=== PATIENT | female | born 1970 | race Caucasian/White ===

== ENCOUNTER → 2017-10-28 09:59 | Outpatient (CLI) | payer OTHER, SELFPAY ==
--- NOTE | 2017-10-28 10:05 | RAD_ITS ---
STUDY: X-RAY CHEST REASON FOR EXAM: Female, 47 years old. Chest pain TECHNIQUE: PA and lateral views of the chest. COMPARISON: None. FINDINGS: The lungs are clear and expanded. There is no demonstrated pleural abnormality. Normal size heart. Normal mediastinum and elfego. Normal visualized pulmonary arteries. Normal visualized aortic arch and descending thoracic aorta. Normal visualized thoracic spine. Normal visualized ribs, clavicles, and shoulders. There is no demonstrated abnormality of the visualized soft tissue structures of the upper abdomen. RAD/Chest PA and Lateral IMPRESSION: Normal x-ray examination of the chest. Electronically Signed: Rohit King DO at 10:29 EST Tel , Service support ,
[2017-10-28 12:25] LABS: Absolute Lymphocyte Count 2.23 X10^3/ul (0.83-4.51); Absolute Neutrophil Count 3.7 X10^3/uL (2.0-7.7); Basophil# 0.03 X10^3/uL; Basophil% 0.5 % (0-1); Eosinophil# 0.05 X10^3/uL; Eosinophils% 0.8 % (0-5); Hematocrit 35.9 % (37-47); Hemoglobin 11.7 g/dl (12.0-15.0); Lymphocyte # 2.23 X10^3/ul (4.0); Mean Corp Hgb Conc 32.6 g/gl (32-36); Mean Corpuscular Hgb 26.8 pg (27.0-32.0); Mean Corpuscular Volume 82.3 fL (81-99); Mean Platelet Vol. 11.3 fl (6.2-12.0); Monocyte# 0.54 X10^3/uL; Monocyte% 8.2 % (0-10); Neutrophil # 3.69 X10^3/uL (2.7-7.7); Neutrophil % 56.2 % (47-70); Platelet Count 246 K/mm3 (150-450); RBC Distribution Width CV 14.6 % (11.6-14.6); RBC Distribution Width SD 43.6 fl (35.1-43.9); Red Blood Count 4.36 M/mm3 (4.2-5.4); White Blood Count 6.6 K/mm3 (4.4-11.0)
[2017-10-28 12:30] LABS: Anion Gap 6 (5-15); BUN 12 mg/dL (7-18); BUN/Creat Ratio 13.2 RATIO (10-20); Calcium,Total 9.1 mg/dL (8.5-10.1); Chloride 106 mmol/L (98-107); Creatinine, Serum 0.91 mg/dL (0.55-1.02); EST Glomerular Filtration Rate 71 mL/min (>60); Est Glom Filt Rate - Afr Amer 86 mL/min (>60); Glucose 94 mg/dL (74-106); Potassium 3.7 mmol/L (3.5-5.1); Sodium Level 139 mmol/L (136-145)
[2017-10-28 12:32] LABS: POSITIVE COUNT NO; POSITIVE DIFFERENTIAL NO; POSITIVE MORPHOLOGY NO
[2017-10-28 12:54] LABS: D-Dimer Quantitative (DVT/PE) < 0.27 FEU/ug/m (0.27-0.49)
== END ==
PROVIDERS: Family Provider Family Medicine; PCP Family Medicine; Visit Provider Family Medicine
DX: R07.9 Chest pain, unspecified (principal)
CPT/HCPCS: 36415; 71046; 80048; 85025; 85379

== ENCOUNTER → 2017-12-04 06:05 | Outpatient (CLI) | payer OTHER, SELFPAY ==
[2017-12-04 08:02] LABS: Hematocrit 34.8 % (37-47); Hemoglobin 11.4 g/dl (12.0-15.0); Mean Corp Hgb Conc 32.8 g/gl (32-36); Mean Corpuscular Hgb 26.6 pg (27.0-32.0); Mean Corpuscular Volume 81.3 fL (81-99); Mean Platelet Vol. 10.7 fl (6.2-12.0); Platelet Count 243 K/mm3 (150-450); RBC Distribution Width CV 14.9 % (11.6-14.6); RBC Distribution Width SD 43.4 fl (35.1-43.9); Red Blood Count 4.28 M/mm3 (4.2-5.4); Scan Indicated on CBC? Y/N NO; White Blood Count 9.7 K/mm3 (4.4-11.0)
[2017-12-04 08:25] LABS: Ferritin 8 ng/mL (8-252); Iron 33 ug/dL (50-170); Thyroid Stim Hormone (TSH) 2.26 uIU/mL (0.358-3.74)
== END ==
PROVIDERS: Family Provider Family Medicine; PCP Family Medicine; Visit Provider Obstetrics & Gynecology
DX: N92.0 Excessive and frequent menstruation with regular cycle (principal)
CPT/HCPCS: 36415; 82728; 83540; 84443; 85027

== ENCOUNTER → 2017-12-10 07:38 | Outpatient (CLI) | payer OTHER, SELFPAY ==
--- NOTE | 2017-12-10 07:43 | US_ITS ---
STUDY: ULTRASOUND TRANSVAGINAL CLINICAL: Female, 47 years old. Bleeding. LMP: October 23, 2017. TECHNIQUE: Transvaginal COMPARISON: CT abdomen and pelvis March 20, 2015. FINDINGS: Normal anteverted uterine size measuring 9.1 x 5.1 x 3.7 cm in maximal craniocaudal dimension. There is hypervascularity and heterogeneity in the anterior upper body of the uterus, consistent with fibroids. One of the largest is 1.4 x 1.5 x 1.8 cm. Normal endometrial thickness measuring 3.1 mm. The endometrium is hyperechoic. There are no endometrial masses, and there is no fluid in the endometrial cavity. There are numerous nabothian cysts in the uterine cervix. One of the largest is 8-9 mm. Normal right ovary, measuring 1.8 x 2.0 x 1.9 cm. There are multiple follicles without a dominant cyst. Normal left ovary, measuring 1.5 x 1.2 x 1.5 cm. There are multiple follicles without a dominant cyst. There is no free fluid in the pelvis. Polycystic ovary disease: No. US/Transvaginal Non- IMPRESSION: 1. Fibroid uterus. 2. Normal endometrium. 3. Numerous nabothian cysts in the uterine cervix. 4. Unremarkable bilateral ovaries. Electronically Signed: Gen Gant MD at 19:51 EDT , Service support ,
== END ==
PROVIDERS: Family Provider Family Medicine; PCP Family Medicine; Visit Provider Obstetrics & Gynecology
DX: N92.0 Excessive and frequent menstruation with regular cycle (principal); N92.6 Irregular menstruation, unspecified; D25.9 Leiomyoma of uterus, unspecified; N88.8 Other specified noninflammatory disorders of cervix uteri
CPT/HCPCS: 76830; 93976

== ENCOUNTER 2018-02-04 06:59 | Day surgery (SDC) | payer OTHER, SELFPAY ==
[2018-01-30 08:32] LABS: Hematocrit 32.2 % (37-47); Hemoglobin 10.4 g/dl (12.0-15.0); Internal QC Validated? YES +Cl - CLEAR BKGD; Mean Corp Hgb Conc 32.3 g/gl (32-36); Mean Corpuscular Hgb 26.4 pg (27.0-32.0); Mean Corpuscular Volume 81.7 fL (81-99); Mean Platelet Vol. 10.4 fl (6.2-12.0); Platelet Count 199 K/mm3 (150-450); Pregnancy, Urine Negative Negative; RBC Distribution Width CV 15.9 % (11.6-14.6); RBC Distribution Width SD 48.2 fl (35.1-43.9); Red Blood Count 3.94 M/mm3 (4.2-5.4); White Blood Count 8.6 K/mm3 (4.4-11.0)
[2018-01-30 08:40] LABS: Scan Indicated on CBC? Y/N NO
[2018-02-04] VITALS (7 sets, daily range): BP systolic 118–158; BP diastolic 78–95; PULSE 69–102; RESP 16–18; TEMP 36.4; O2SAT 95–100; BMI 38.2
[2018-02-04] MEDS: Acetaminophen 500 MG Tablet 1000 MG PO ×2 (07:23)
[2018-02-04] MEDS: Ketorolac 60 MG/2 ML Vial IM (07:23)
[2018-02-04] MEDS: Ondansetron 8 MG Tablet PO (07:23)
[2018-02-04 07:51] LABS: Internal QC Validated? YES +Cl - CLEAR BKGD; Pregnancy, Urine Negative Negative
--- NOTE | 2018-02-04 08:25 | EMB_PTH ---
PATIENT: STEPHANIE ROSENTHAL LOC: [facility] – [place] U#:[id number] AGE/SX: 47/F ROOM: RE02/04/[address]: Dr. Keesha Foster MD : 1970 BED: DIS: 02/04/2018 SPEC #: [id number] RECD: 02/04/18 09:54 STATUS: EDGAR HAMMOND #: [id number] PAULINE: 02/04/18 08:[address]: Keesha Foster DEPT: SURGICAL PATHOLOGY RECD BY: Young Johnson ENTERED: 02/04/18 10:03 SP TYPE: ENDOM BX/C DANIEL DR: Dr. Jorge Luis Nunez MD Tissues: Endometrium, NOS Procedures: Surgery Specimen Level IV HEADER OPERATION: Hysteroscopy, D & C, Priscilla PRE-OP DIAGNOSIS: Menorrhagia with dysmenorrhea, iron deficiency anemia TISSUE SUBMITTED: Endometrial curettings MICROSCOPIC DIAGNOSIS Endometrial curettings: Secretory endometrium. See comment. SJ:victoria 02/05/18 COMMENT The endometrial glands show mild distortion and may represent disordered proliferative endometrium with superimposed secretory changes. Clinical correlation and appropriate follow up are necessary. MICROSCOPIC DESCRIPTION Slides are reviewed. GROSS DESCRIPTION Received in fixative is one container labeled with the patient's name and designated endometrial curettings. The specimen consists of multiple irregular fragments of hamilton-pink soft tissue mixed with blood clot that in aggregate measure 5 x 3 x 0.3 cm. The entire specimen is submitted in two cassettes. / IZABELA:victoria 02/04/18 TC:5 CPT: 02287
--- NOTE | 2018-02-04 08:58 | PCM.DC.D&C ---
Discharge Diet: No Restrictions Discharge Activity: Return to Normal Activity, May Shower, May Take a Tub Bath - in 2 weeks. Return to work on:: 02/08/18 May shower in (days): 0 May resume sexual activity in: 3 weeks Call your doctor if your incision/area has: Sudden Increased Bleeding, Foul Smelling Discharge Call your doctor if you observe: Fever of 101 or Higher, Using more than one pad per hour, Uncontrolled pain Allergies/Adverse Reactions: Allergies latex Allergy (Verified 01/28/18 14:20) Hives Sulfa (Sulfonamide Antibiotics) Allergy (Verified 01/28/18 14:20) Unknown Medications to take at Discharge Multivitamin/Iron/Folic Acid [One Daily Multivitamin-Iron Tb] 1 each PO DAILY 01/28/18 Ranitidine [Zantac] 150 mg PO DAILY PRN 01/28/18 Primary Care Physician: Jorge Luis Nunez MD [Primary Care Provider] - Please Follow Up With: Keesha Foster MD - [phone] When: 4-6 weeks or as needed
--- NOTE | 2018-02-04 09:00 | PCM.OPRPT ---
Report of Operation Date of Procedure: 02/04/18 Pre-Operative Diagnosis: Menorrhagia, chronic iron deficiency anemia from chronic blood loss Post-Operative Diagnosis: Same Surgery/Procedure Performed:: Hysteroscopy dilation and curettage with Priscilla endometrial ablation Description of Surgical Findings:: Normal-appearing cervix and vagina. Uterus sounded to 10 cm. Ragged lush endometrium. No discrete polyps or fibroids in the endometrial cavity. small business sales representative: Olvin gould ms3 Type of Anesthesia:: MAC/Supplemental/Local Anesthesiologist: Drake Sweet Special Medications: none Specimen's removed: endometrial curettings Drains: none Estimated Blood Loss (mL): 10cc Fluids Replaced: 900cc Description of Procedure: The patient was taken to the OR where she was prepped and draped in dorsal lithotomy position. The weighted speculum was placed in the vagina and the anterior lip of the cervix was grasped with a single-tooth tenaculum. A paracervical block was administered with 1% lidocaine with 1-100,000 epinephrine solution. The cervix was dilated serially with Hegar dilators. The 5mm hysteroscope was placed into the uterine cavity and the above findings were noted. Bilateral tubal ostia were identified. The uterus sounded to 10 cm and the cervical length was 4 cm. The endometrial cavity length was 6 cm. The hysteroscope was removed. A gentle sharp curettage was done of the uterine cavity. The specimen was handed off and sent to pathology. The Priscilla device was set to 6 cm. The instrument was then seated into the endometrial cavity and the indicator was in the green. The cervical seal balloon was inflated and the uterine integrity test was passed. The ablation procedure was initiated and completed without interruption. During the ablation procedure gentle traction was held on the tenaculum and the Priscilla device was held up against the uterine fundus. When the ablation procedure was completed the Priscilla was removed. The tenaculum was removed and the tenaculum site was noted to be hemostatic. All sponge and needle counts were correct. A vaginal sweep was performed by me. The patient was awakened and taken to the recovery room in stable condition. Hysteroscopic ins: 100 cc normal saline Hysteroscopic outs: 75 cc Findings: Endometrial cavity: Ragged endometrium and some blood, no fibroids or polyps noted Cervix: normal Vagina: normal Grafts/Implants Used: none - Complications none - Admit VTE Documentation VTE Mechan Device Prophylaxis: SCD's VTE Pharm Prophylaxis ordered?: No Reason prophylaxis not ordered:: Procedure Not Indicated
== END 2018-02-04 09:59 | disposition home or self-care (01) ==
LOC: SDC 06:59 → AC 07:00
PROVIDERS: Anesthesiology; Family Provider Family Medicine; PCP Family Medicine; Visit Provider Obstetrics & Gynecology
PROC: 0U5B8ZZ Destruction of Endometrium, Via Natural or Artificial Opening Endoscopic (ICD-10-PCS; CPT 58558; principal; 2018-02-04 08:10)
DX: N85.8 Other specified noninflammatory disorders of uterus (principal); N92.0 Excessive and frequent menstruation with regular cycle; N94.6 Dysmenorrhea, unspecified; D50.0 Iron deficiency anemia secondary to blood loss (chronic); K21.9 Gastro-esophageal reflux disease without esophagitis; E66.9 Obesity, unspecified; Z68.38 Body mass index [BMI] 38.0-38.9, adult; Z98.51 Tubal ligation status
CPT/HCPCS: 58563; 81025; 85027; 88305; J7120; J2405

== ENCOUNTER → 2018-03-12 09:53 | Outpatient (CLI) | payer OTHER, SELFPAY ==
[2018-03-12 12:04] LABS: Hematocrit 35.4 % (37-47); Hemoglobin 11.2 g/dl (12.0-15.0); Mean Corp Hgb Conc 31.6 g/gl (32-36); Mean Corpuscular Hgb 25.9 pg (27.0-32.0); Mean Corpuscular Volume 81.8 fL (81-99); Mean Platelet Vol. 10.7 fl (6.2-12.0); Platelet Count 244 K/mm3 (150-450); RBC Distribution Width CV 14.7 % (11.6-14.6); RBC Distribution Width SD 44.4 fl (35.1-43.9); Red Blood Count 4.33 M/mm3 (4.2-5.4); White Blood Count 5.4 K/mm3 (4.4-11.0)
[2018-03-12 12:09] LABS: Scan Indicated on CBC? Y/N NO
[2018-03-12 12:44] LABS: Anion Gap 5 (5-15); BUN 13 mg/dL (7-18); BUN/Creat Ratio 13.6 RATIO (10-20); Chloride 108 mmol/L (98-107); Creatinine, Serum 0.95 mg/dL (0.55-1.02); EST Glomerular Filtration Rate 67 mL/min (>60); Est Glom Filt Rate - Afr Amer 81 mL/min (>60); Glucose 87 mg/dL (74-106); Sodium Level 139 mmol/L (136-145); Thyroid Stim Hormone (TSH) 1.34 uIU/mL (0.358-3.74)
== END ==
PROVIDERS: Family Provider Family Medicine; PCP Family Medicine; Visit Provider Obstetrics & Gynecology
DX: N93.9 Abnormal uterine and vaginal bleeding, unspecified (principal); R53.83 Other fatigue
CPT/HCPCS: 36415; 80048; 84443; 85027

== ENCOUNTER → 2018-03-17 07:42 | Outpatient (CLI) | payer OTHER, SELFPAY ==
--- NOTE | 2018-03-17 07:43 | US_ITS ---
STUDY: ULTRASOUND OF THE FEMALE PELVIS - COMPLETE REASON FOR EXAM: Female, 47 years old. Abnormal uterine bleeding and pelvic pain. Patient recently had an endometrial ablation (02/04/2018) LMP: October 23, 2017 TECHNIQUE: Limited study because the patient could not tolerate the transvaginal probe. Urinary bladder wasn't completely full TECHNICAL QUALITY: Adequate. COMPARISON: None. FINDINGS: The uterus measures 10.1 x 4.1 cm with an endometrial stripe thickness of 4.3 mm. There are 2 uterine fibroids in the anterior myometrial wall measuring 1.7 and 1.6 cm. A third is in the posterior myometrial wall measuring 9 mm. Both ovaries are seen and both demonstrate normal Doppler flow through them. The right is 3.5 x 2.6 x 1.7 cm and the left is 3.2 x 3.0 x 1.4 cm . US/Pelvic (Non ) IMPRESSION: Small uterine fibroids. The ovaries are normal. The endometrial stripe is normal. Electronically Signed: Sancho Wick, at 3:22 EDT Tel , Service support ,
--- NOTE | 2018-03-17 08:23 | US_ITS ---
STUDY: ULTRASOUND OF THE FEMALE PELVIS - COMPLETE REASON FOR EXAM: Female, 47 years old. Abnormal uterine bleeding and pelvic pain. Patient recently had an endometrial ablation (02/04/2018) LMP: October 23, 2017 TECHNIQUE: Limited study because the patient could not tolerate the transvaginal probe. Urinary bladder wasn't completely full TECHNICAL QUALITY: Adequate. COMPARISON: None. FINDINGS: The uterus measures 10.1 x 4.1 cm with an endometrial stripe thickness of 4.3 mm. There are 2 uterine fibroids in the anterior myometrial wall measuring 1.7 and 1.6 cm. A third is in the posterior myometrial wall measuring 9 mm. Both ovaries are seen and both demonstrate normal Doppler flow through them. The right is 3.5 x 2.6 x 1.7 cm and the left is 3.2 x 3.0 x 1.4 cm . US/Transvaginal Non- IMPRESSION: Small uterine fibroids. The ovaries are normal. The endometrial stripe is normal. Electronically Signed: Sancho Wick, at 3:22 EDT Tel , Service support ,
== END ==
PROVIDERS: Family Provider Family Medicine; PCP Family Medicine; Visit Provider Obstetrics & Gynecology
DX: N93.9 Abnormal uterine and vaginal bleeding, unspecified (principal); R10.2 Pelvic and perineal pain
CPT/HCPCS: 76830; 76856; 93976

== ENCOUNTER → 2018-04-09 07:41 | Outpatient (CLI) | payer OTHER, SELFPAY ==
--- NOTE | 2018-04-09 07:48 | BI_ITS ---
MAMMOGRAPHY - BILATERAL SCREENING REASON FOR EXAM: Female, 47 years old. Routine annual screening examination. PERTINENT HISTORY: Non-contributory. Prior bilateral breast reduction surgery. TECHNIQUE: Digital bilateral breast kirsten (3D mammographic acquisition) in the CC and MLO projections. 2-D mediolateral oblique (MLO) and craniocaudad (CC) views of both breasts were obtained. CAD: Full Field Digital Mammography with Computer Added Detection was performed. COMPARISON: Comparison is made with prior study dated January 23, 2017 and December 10, 2015. FINDINGS: Breast Composition: There are scattered areas of fibroglandular density. There are no dominant masses or suspicious calcifications. A tissue clip marker is seen within a 5 mm nodule in the upper lateral aspect of the right breast. This is unchanged. Stable benign-appearing bilateral axillary lymph nodes. No other significant abnormalities are identified. There has been no significant change since the prior study. BI/SCREENING MAMM (CAD), BILAT IMPRESSION: Stable bilateral screening mammogram. Yearly follow-up mammogram recommended. (A) ASSESSMENT CATEGORY: BIRADS Category 2: Benign. A letter regarding these results will be sent to the patient by the facility within 30 days. Approximately 10% of breast cancers are not detected by mammography. A normal mammogram should not delay biopsy of a clinically suspicious abnormality. [id number] Electronically Signed: Derrick Sharma MD at 10:51 EDT Tel [phone], Service support ,
== END ==
PROVIDERS: Family Provider Family Medicine; PCP Family Medicine; Visit Provider Family Medicine
DX: Z12.31 Encounter for screening mammogram for malignant neoplasm of breast (principal)
CPT/HCPCS: 77063; 77067

== ENCOUNTER 2018-05-20 12:36 | Observation (INO) | payer OTHER, SELFPAY ==
[2018-05-17 07:37] LABS: Hematocrit 34.8 % (37-47); Hemoglobin 11.7 g/dl (12.0-15.0); Mean Corp Hgb Conc 33.6 g/gl (32-36); Mean Corpuscular Hgb 27.1 pg (27.0-32.0); Mean Corpuscular Volume 80.7 fL (81-99); Mean Platelet Vol. 10.1 fl (6.2-12.0); Platelet Count 206 K/mm3 (150-450); RBC Distribution Width CV 15.9 % (11.6-14.6); Red Blood Count 4.31 M/mm3 (4.2-5.4); White Blood Count 6.6 K/mm3 (4.4-11.0)
[2018-05-17 07:42] LABS: Scan Indicated on CBC? Y/N NO
[2018-05-20] VITALS (16 sets, daily range): BP systolic 79–166; BP diastolic 39–91; PULSE 48–81; RESP 14–18; TEMP 36.2–37.1; O2SAT 95–100; BMI 38.8
--- NOTE | 2018-05-20 | HYST_PTH ---
PATIENT: STEPHANIE ROSENTHAL LOC: [facility] U#:[id number] AGE/SX: 48/F ROOM: MS314 RE05/20/[address]: Dr. Keesha Foster MD : 1970 BED: 1 DIS: 05/21/2018 SPEC #: [id number] RECD: 05/20/18 13:46 STATUS: EDGAR RERosa Isela #: [id number] PAULINE: 05/20/18 00:[address]: Keesha Foster DEPT: SURGICAL PATHOLOGY RECD BY: Rocco Perez ENTERED: 05/20/18 13:46 SP TYPE: HYSTERECT OTHR DR: Dr. Jorge Luis Nunez MD Tissues: Uterus, NOS Procedures: Surgery Specimen Level V HEADER OPERATION: Hysterectomy, laparoscopic, total, bilateral salpingectomy PRE-OP DIAGNOSIS: Dysmenorrhea, adenomyosis TISSUE SUBMITTED: Uterus, bilateral fallopian tubes MICROSCOPIC DIAGNOSIS Uterus, hysterectomy: Cervix ? nabothian cysts and mild chronic inflammation. Endometrium ? weakly proliferative endometrium and changes consistent with previous surgical procedure. Myometrium ? leiomyomas and focal superficial adenomyosis. Right and left fallopian tubes ? changes consistent with hydrosalpinx. AM:victoria 05/21/18 MICROSCOPIC DESCRIPTION Slides are reviewed. GROSS DESCRIPTION Received in fixative is one container labeled with the patient's name and designated uterus. The specimen consists of a uterus with attached cervix and detached right and left fallopian tubes. No ovaries are present. The uterus with cervix measures 9.5 x 6.5 x 4 cm and weighs 92 gm. The ectocervix is unremarkable. The cervical os is fish[place] in contour. The endocervical canal measures 3.6 cm in length and is grossly unremarkable. The triangular endometrial cavity measures 3.5 x 2.6 cm. The velvety-hamilton endometrium measures up to 0.2 cm in greatest thickness. The myometrium measures 2 cm in average thickness and is distorted by multiple spherical rubbery nodules resembling leiomyomas. The nodules are subserosal, intramural and submucosal in location and range in size from 0.2 to 1.8 cm in greatest dimension. The right and left fallopian tubes are similar in appearance measuring 3 cm in average length and 0.5 cm in average diameter. Project Estimator sections are submitted in ten cassettes as follows: 1 - anterior cervix, 2 - posterior cervix, 3 & 4 - anterior uterine wall, 5 & 6 - posterior uterine wall, 7 & 8 ? myometrial mass, 9 ? one fallopian tube, 10 ? the other fallopian tube. / AM:victoria 05/20/18 TC:1 CPT: 40427
[2018-05-20 06:01] LABS: Internal QC Validated? YES +Cl - CLEAR BKGD; Pregnancy, Urine Negative Negative
[2018-05-20] MEDS: Acetaminophen 500 MG Tablet 1000 MG PO ×3 (06:02→23:21)
[2018-05-20] MEDS: Celecoxib 200 MG Capsule 400 MG PO (06:02)
[2018-05-20] MEDS: Phenazopyridine 95 MG Tablet 190 MG PO (06:02)
[2018-05-20] MEDS: Lubricating Jelly 60 GM Tube 30 GM TOPICAL (07:57)
[2018-05-20] MEDS: Bupivacaine Mpf 0.5% 30 ML VIAL (08:00)
--- NOTE | 2018-05-20 09:59 | PCM.OPRPT ---
Report of Operation Date of Procedure: 05/20/18 Pre-Operative Diagnosis: intramural uterine fibroid, chronic pelvic pain s/p endometrial ablation, adenomyosis Post-Operative Diagnosis: same Surgery/Procedure Performed:: Laparoscopic hysterectomy with bilateral salpingectomy and cystoscopy Description of Surgical Findings:: Uterus w/ small fibroid, normal bilateral ovaries, tubes normal other than evidence of previous ligation, some omental adhesions right lateral abdominal wall plant guard: Julia Bo Type of Anesthesia:: General Anesthesiologist: Daniela Wan Special Medications: none Specimen's removed: uterus, bilateral tubes Drains: bray Estimated Blood Loss (mL): 400cc Fluids Replaced: 1400 cc LR Grafts/Implants Used: none - Complications none - Admit VTE Documentation VTE Present on Admission: No VTE Mechan Device Prophylaxis: SCD's VTE Pharm Prophylaxis ordered?: Yes
--- NOTE | 2018-05-20 10:03 | OP.PCM_ITS ---
Report of Operation Date of Procedure: 05/20/18 Pre-Operative Diagnosis: intramural uterine fibroid, chronic pelvic pain s/p endometrial ablation, adenomyosis Post-Operative Diagnosis: same Surgery/Procedure Performed:: Laparoscopic hysterectomy with bilateral salpingectomy and cystoscopy Description of Surgical Findings:: Uterus w/ small fibroid, normal bilateral ovaries, tubes normal other than evidence of previous ligation, some omental adhesions right lateral abdominal wall manufacturing operations manager: Julia Bo Type of Anesthesia:: General Anesthesiologist: Daniela Wan Special Medications: none Specimen's removed: uterus, bilateral tubes Drains: bray Estimated Blood Loss (mL): 400cc Fluids Replaced: 1400 cc LR Grafts/Implants Used: none - Complications none - Admit VTE Documentation VTE Present on Admission: No VTE Mechan Device Prophylaxis: SCD's VTE Pharm Prophylaxis ordered?: Yes
[2018-05-20] MEDS: Lactated Ringers 1,000 ML 100 ML IV ×2 (12:00→20:52)
[2018-05-20] MEDS: Ketorolac 30 MG/ML Syringe IV ×2 (14:12→20:49)
[2018-05-20] MEDS: oxyCODONE 5 MG Tablet PO ×2 (15:33→23:21)
[2018-05-20] MEDS: 0.9% NaCl Peripheral Flush Adult/Peds IV ×2 (19:38→20:49)
[2018-05-20] MEDS: HYDROmorphone 1 MG/ML Syringe IV (19:39)
[2018-05-20] MEDS: Senna/Docusate Sodium 1 Tablet PO (23:21)
[2018-05-21] MEDS: HYDROmorphone 1 MG/ML Syringe 2 MG IV (00:30)
[2018-05-21] MEDS: 0.9% NaCl Peripheral Flush Adult/Peds IV ×3 (00:30→14:02)
[2018-05-21 00:34] VITALS: BP 129/65; PULSE 75; RESP 16; TEMP 36.8; O2SAT 100
[2018-05-21] MEDS: Ketorolac 30 MG/ML Syringe IV ×3 (02:23→14:02)
[2018-05-21] MEDS: DiphenhydrAMINE 25 MG Capsule 50 MG PO (02:24)
[2018-05-21 02:27] VITALS: BP 116/51; PULSE 60; RESP 16; TEMP 36.6; O2SAT 100
[2018-05-21] MEDS: oxyCODONE 5 MG Tablet PO ×3 (06:41→17:38)
[2018-05-21 06:48] LABS: Hemoglobin 9.5 g/dl (12.0-15.0); Mean Corp Hgb Conc 31.7 g/gl (32-36); Mean Corpuscular Hgb 26.3 pg (27.0-32.0); Mean Corpuscular Volume 83.1 fL (81-99); Platelet Count 198 K/mm3 (150-450); RBC Distribution Width CV 16.3 % (11.6-14.6); RBC Distribution Width SD 48.4 fl (35.1-43.9); Red Blood Count 3.61 M/mm3 (4.2-5.4); White Blood Count 11.1 K/mm3 (4.4-11.0)
[2018-05-21 06:55] LABS: Scan Indicated on CBC? Y/N NO
[2018-05-21 07:53] VITALS: BP 107/54; PULSE 98; RESP 18; TEMP 36.7; O2SAT 96
[2018-05-21] MEDS: Senna/Docusate Sodium 1 Tablet PO (08:06)
--- NOTE | 2018-05-21 08:25 | PCM.DC.AHY ---
Discharge Diet: No Restrictions Discharge Activity: Return to Normal Activity, May Not Drive - while taking narcotic pain medications., May Shower May shower in (days): 0 May resume sexual activity in: 8 weeks Call your doctor if your incision/area has: Continuous Slow Oozing, Sudden Increased Bleeding, Increased Pain/ Swelling, Increased Redness, Foul Smelling Discharge Call your doctor if you observe: Fever of 101 or Higher, Inability to urinate, Inability to have a bowel movement, Using more than one pad per hour Cleanse incision/area with: Soap & Water Allergies/Adverse Reactions: Allergies latex Allergy (Verified 05/13/18 09:21) Hives Sulfa (Sulfonamide Antibiotics) Allergy (Verified 05/13/18 09:21) Unknown Medications to take at Discharge Ranitidine [Zantac] 150 mg PO DAILY PRN 01/28/18 Primary Care Physician: Jorge Luis Nunez MD [Primary Care Provider] - Test Results: Test results from this visit will be discussed in further detail at your follow-up appointment, if applicable. Please Follow Up With: Keesha Foster MD - [phone] When: 1-2 and 6 weeks or as needed
--- NOTE | 2018-05-21 08:26 | PCM.PN.OB ---
Subjective: pain well controlled after second dose of IV dilauded. Some pruritis. No nausea this am, didn't eat yesterday. Minimal vaginal bleeding. Fox out this am. - Physical Exam General: Alert, Cooperative, No apparent distress Abdomen: Soft, Non-Distended, Tender - appropriately Extremities: No edema Skin: Incision - clean, dry and intact Vital Signs Temp Pulse Resp BP Pulse Ox 98.1 F 98 18 107/54 L 96 05/21/18 07:53 05/21/18 07:53 05/21/18 07:53 05/21/18 07:53 05/21/18 07:53 Oxygen Flow Rate (L/min) 2 Oxygen Delivery Method Room Air Weight: 105.9 kg Body Mass Index (BMI) 38.8 Intake and Output for Last 24 Hours 05/19/18 05/20/18 05/21/18 23:59 23:59 23:59 Intake Total 5241 / 5241 1109 / 1109 Output Total 2275 / 2275 600 / 600 Balance 2966 / 2966 509 / 509 Laboratory Tests Past 24 Hrs 05/21/18 06:18 WBC 11.1 H RBC 3.61 L Hgb 9.5 L Hct 30.0 L MCV 83.1 MCH 26.3 L MCHC 31.7 L RDW 16.3 H RDW Differential 48.4 H Plt Count 198 MPV 11.0 Medical Necessity - Tobacco Use Smoking Status: Never smoker Assessment/Plan POD#1 mild anemia- likely secondary to blood loss and somewhat dilutional. Will recheck later this am to ensure it is stable ambulate likely home later today
[2018-05-21] MEDS: Enoxaparin 40 MG/0.4 ML Syringe SC (10:06)
[2018-05-21] MEDS: DiphenhydrAMINE 25 MG Capsule PO ×3 (10:06→18:16)
[2018-05-21 11:04] VITALS: O2SAT 96
[2018-05-21 11:33] LABS: Hematocrit 30.4 % (37-47); Hemoglobin 9.6 g/dl (12.0-15.0); Mean Corp Hgb Conc 31.6 g/gl (32-36); Mean Corpuscular Hgb 26.2 pg (27.0-32.0); Mean Corpuscular Volume 83.1 fL (81-99); Mean Platelet Vol. 10.2 fl (6.2-12.0); Platelet Count 204 K/mm3 (150-450); RBC Distribution Width CV 16.6 % (11.6-14.6); RBC Distribution Width SD 51.3 fl (35.1-43.9); Red Blood Count 3.66 M/mm3 (4.2-5.4); White Blood Count 13.7 K/mm3 (4.4-11.0)
[2018-05-21 11:40] LABS: Scan Indicated on CBC? Y/N NO
[2018-05-21 13:55] VITALS: BP 103/58; PULSE 84; RESP 18; TEMP 36.6; O2SAT 98
== END 2018-05-21 18:18 | disposition home or self-care (01) ==
LOC: SDC 14:14
PROVIDERS: Admitting Provider Obstetrics & Gynecology; Family Provider Family Medicine; PCP Family Medicine; Visit Provider Obstetrics & Gynecology
PROC: 0UT94ZZ Resection of Uterus, Percutaneous Endoscopic Approach (ICD-10-PCS; CPT 58571; principal; 2018-05-20 07:10)
DX: D25.1 Intramural leiomyoma of uterus (principal); N80.0 Endometriosis of uterus; N88.8 Other specified noninflammatory disorders of cervix uteri
CPT/HCPCS: 00940; 58571; 36415; 81025; 85027; 86850; 86900; 88307; 96361; 96372; 96374; 96375; 96376; 99218; J7120; A4216; G0378; G0379; J2405

== ENCOUNTER → 2018-12-24 11:44 | Outpatient (CLI) | payer OTHER, SELFPAY ==
[2018-09-24 06:29] VITALS: BMI 39.0
[2018-12-24 16:00] LABS: Anion Gap 7 (5-15); BUN 17 mg/dL (7-18); BUN/Creat Ratio 18.7 RATIO (10-20); Calcium,Total 8.6 mg/dL (8.5-10.1); Chloride 108 mmol/L (98-107); Creatinine, Serum 0.91 mg/dL (0.55-1.02); EST Glomerular Filtration Rate 70 mL/min (>60); Est Glom Filt Rate - Afr Amer 85 mL/min (>60); Glucose 90 mg/dL (74-106); Magnesium 2.1 mg/dL (1.6-2.6); Potassium 4.1 mmol/L (3.5-5.1); Sodium Level 142 mmol/L (136-145)
== END ==
PROVIDERS: Family Provider Family Medicine; PCP Family Medicine; Referring Provider Family Medicine; Visit Provider Family Medicine
DX: M79.606 Pain in leg, unspecified (principal)
CPT/HCPCS: 36415; 80048; 83735

== ENCOUNTER → 2019-05-19 07:30 | Outpatient (CLI) | payer OTHER, SELFPAY ==
[2019-02-12 08:39] VITALS: BMI 41.2
--- NOTE | 2019-05-19 07:35 | BI_ITS ---
MAMMOGRAPHY - BILATERAL SCREENING REASON FOR EXAM: Female, 49 years old. Routine annual screening examination. PERTINENT HISTORY: Non-contributory. History of bilateral breast reduction surgery. TECHNIQUE: Digital bilateral breast sangeeta (3D mammographic acquisition) in the CC and MLO projections. 2-D mediolateral oblique (MLO) and craniocaudad (CC) views of both breasts were obtained. CAD: Full Field Digital Mammography with Computer Added Detection was performed. COMPARISON: Comparison is made with prior study dated April 09, 2018 and January 23, 2017. FINDINGS: Breast Composition: There are scattered areas of fibroglandular density. There are no dominant masses or suspicious calcifications. Interstitial clip marker is seen in the upper lateral aspect of the right breast. This is unchanged. This is within a 5 mm nodular density. Stable small bilateral benign appearing axillary lymph nodes. No other significant abnormalities are identified. There has been no significant change since the prior study. BI/SCREEN MAMM (CAD) W/SANGEETA BILAT IMPRESSION: Stable bilateral screening mammogram. Yearly follow-up mammogram recommended. (A) ASSESSMENT CATEGORY: BIRADS Category 2: Benign. A letter regarding these results will be sent to the patient by the facility within 30 days. Approximately 10% of breast cancers are not detected by mammography. A normal mammogram should not delay biopsy of a clinically suspicious abnormality. [id number] Electronically Signed: Derrick Sharma, at 8:16 EDT , Service support ,
== END ==
PROVIDERS: Family Provider Family Medicine; PCP Family Medicine; Referring Provider Obstetrics & Gynecology; Visit Provider Obstetrics & Gynecology
DX: Z12.31 Encounter for screening mammogram for malignant neoplasm of breast (principal)
CPT/HCPCS: 77063; 77067

== ENCOUNTER → 2019-08-17 14:22 | Outpatient (CLI) | payer OTHER, SELFPAY ==
[2019-02-12 08:39] VITALS: BMI 41.2
--- NOTE | 2019-08-17 14:26 | RAD_ITS ---
STUDY: X-RAY - LUMBAR SPINE REASON FOR EXAM: Female, 49 years old. TECHNIQUE: view(s) of the lumbar spine were obtained. COMPARISON: None FINDINGS: Normal lumbar lordosis. There is no substantial scoliosis. There is a normal alignment of the vertebrae. Normal vertebral bodies and endplates. Normal disc space heights. The soft tissue structures are unremarkable. RAD/L/S Spine Min 4 Views IMPRESSION: Normal x-ray examination of the lumbar spine. Electronically Signed: Nuha Lebron, at 16:25 EST Tel , Service support ,
== END ==
PROVIDERS: Family Provider Family Medicine; PCP Family Medicine; Referring Provider Family Medicine; Visit Provider Family Medicine
DX: M54.5 Low back pain (principal)
CPT/HCPCS: 72110

== ENCOUNTER → 2019-12-15 | Outpatient (CLI) | payer OTHER, SELFPAY ==
[2019-09-25 10:43] VITALS: BMI 41.2
== END | disposition home or self-care (01) ==
PROVIDERS: PCP Family Medicine; Referring Provider Family Medicine; Visit Provider Family Medicine
DX: J06.9 Acute upper respiratory infection, unspecified (principal)
CPT/HCPCS: 87633

== ENCOUNTER → 2020-04-20 10:31 | Outpatient (CLI) | payer OTHER, SELFPAY ==
[2019-09-25 10:43] VITALS: BMI 41.2
[2020-04-20 12:27] LABS: Vitamin D,25 Hydroxy 30.3 ng/mL
[2020-04-20 12:34] LABS: Anion Gap 5 (5-15); BUN 14 mg/dL (7-18); BUN/Creat Ratio 15.7 RATIO (10-20); Chloride 107 mmol/L (98-107); Cholesterol 179 mg/dL (200); Creatinine, Serum 0.89 mg/dL (0.55-1.02); EST Glomerular Filtration Rate 72 mL/min (>60); Est Glom Filt Rate - Afr Amer 87 mL/min (>60); Glucose 104 mg/dL (74-106); High Density Lipoprotein 47 mg/dL; Potassium 3.9 mmol/L (3.5-5.1); Sodium Level 138 mmol/L (136-145); Thyroid Stim Hormone (TSH) 1.24 uIU/mL (0.358-3.74); Triglycerides 97 mg/dL; Very Low Density Lipoprotein 19 mg/dL (5-40)
== END ==
PROVIDERS: PCP Family Medicine; Referring Provider Family Medicine; Visit Provider Family Medicine
DX: Z00.00 Encounter for general adult medical examination without abnormal findings (principal)
CPT/HCPCS: 36415; 80048; 80061; 82306; 84443

== ENCOUNTER → 2020-05-21 07:29 | Outpatient (CLI) | payer OTHER, SELFPAY ==
[2019-09-25 10:43] VITALS: BMI 41.2
--- NOTE | 2020-05-21 07:32 | BI_ITS ---
MAMMOGRAPHY - BILATERAL SCREENING REASON FOR EXAM: Female, 50 years old. Routine annual screening examination. PERTINENT HISTORY: Non-contributory. History of prior bilateral breast reduction surgery. TECHNIQUE: Digital bilateral breast sangeeta (3D mammographic acquisition) in the CC and MLO projections. 2-D mediolateral oblique (MLO) and craniocaudad (CC) views of both breasts were obtained. CAD: Full Field Digital Mammography with Computer Added Detection was performed. COMPARISON: Comparison is made with prior study dated 05/19/2019 and 04/09/2018. FINDINGS: Breast Composition: There are scattered areas of fibroglandular density. There are no dominant masses or suspicious calcifications. Stable small benign appearing bilateral axillary. A tissue clip marker is once again seen within a 5 mm nodular density in the upper lateral portion of the right breast. A tissue clip marker is also seen in the retroareolar region of the right breast. No other significant abnormalities are identified. There has been no significant change since the prior study. BI/SCREEN MAMM (CAD) W/SANGEETA BILAT IMPRESSION: Stable bilateral screening mammogram. Yearly follow-up mammogram recommended. (A) ASSESSMENT CATEGORY: BIRADS Category 2: Benign. A letter regarding these results will be sent to the patient by the facility within 30 days. Approximately 10% of breast cancers are not detected by mammography. A normal mammogram should not delay biopsy of a clinically suspicious abnormality. [id number] Electronically Signed: Derrick Sharma, at 8:33 EDT , Service support ,
== END ==
PROVIDERS: PCP Family Medicine; Referring Provider Family Medicine; Visit Provider Family Medicine
DX: Z12.31 Encounter for screening mammogram for malignant neoplasm of breast (principal)
CPT/HCPCS: 77063; 77067

== ENCOUNTER → 2021-07-19 15:25 | Outpatient (CLI) | payer OTHER, SELFPAY ==
--- NOTE | 2021-07-19 15:27 | BI_ITS ---
MAMMOGRAPHY - BILATERAL SCREENING REASON FOR EXAM: Female, 51 years old. Routine annual screening examination. PERTINENT HISTORY: Non-contributory. History of prior bilateral breast reduction surgery and right ultrasound-guided breast biopsy. TECHNIQUE: Digital bilateral breast sangeeta (3D mammographic acquisition) in the CC and MLO projections. 2-D mediolateral oblique (MLO) and craniocaudad (CC) views of both breasts were obtained. CAD: Full Field Digital Mammography with Computer Added Detection was performed. COMPARISON: Comparison is made with prior study 05/21/2020 and 05/19/2019. FINDINGS: Breast Composition: There are scattered areas of fibroglandular density. There are no dominant masses or suspicious calcifications. A tissue clip marker is once again seen within a 5 mm nodule in the upper lateral portion of the right breast. A tissue clip marker is also seen in the retroareolar region of the right breast stable small benign-appearing bilateral axillary lymph nodes. No other significant abnormalities are identified. There has been no significant change since the prior study. BI/SCRN MAMM (CAD)W/SANGEETA BILAT IMPRESSION: Stable bilateral screening mammogram. Yearly follow-up mammogram recommended. (A) ASSESSMENT CATEGORY: BIRADS Category 2: Benign. A letter regarding these results will be sent to the patient by the facility within 30 days. Approximately 10% of breast cancers are not detected by mammography. A normal mammogram should not delay biopsy of a clinically suspicious abnormality. [id number] Electronically Signed: Derrick Sharma MD at 8:10 EDT , Service support ,
== END ==
PROVIDERS: PCP Family Medicine; Referring Provider Obstetrics & Gynecology; Visit Provider Obstetrics & Gynecology
DX: Z12.31 Encounter for screening mammogram for malignant neoplasm of breast (principal)
CPT/HCPCS: 77063; 77067

== ENCOUNTER 2021-08-31 20:00 | Emergency (ER) | payer OTHER, SELFPAY ==
[2021-08-31 20:00] VITALS: BP 119/90; PULSE 125; RESP 20; TEMP 37.7; O2SAT 100; BMI 31.4
--- NOTE | 2021-08-31 20:29 | CT_ITS ---
STUDY: CTA CHEST REASON FOR EXAM: Female, 51 years old. Dyspnea RADIATION DOSAGE (If Supplied By Facility): CTDIvol = ( 16.10 ) mGy, DLP = ( 523.10 ) mGycm TECHNIQUE: The examination was performed with the intravenous administration of IV 100mL Isovue-370. Post-processing of the angiographic images was performed, with multiplanar reformation and 3D reconstruction. Individualized dose optimization techniques were used for this CT. COMPARISON: None. FINDINGS: Suboptimal density of contrast in the pulmonary arteries, 245 [place] units, with mild motion in the lung bases decreases quality of the exam which is still diagnostic. Thoracic aortic arch is normal. Heart is normal size. No pericardial effusion. Lungs are clear without nodule or mass. No airspace opacity or abnormal interstitial pattern. No pleural effusion or pneumothorax. Central airways normal. Visualized portions upper abdomen included in [id number] are normal. Extrathoracic soft tissues of the chest and base of the neck are within normal limits. No axillary lymphadenopathy. No fracture or focal osseous lesion. Age expected mild degenerative endplate changes noted. CT/CTA Chest W/WO Contrast IMPRESSION: No pulmonary embolism or acute cardiopulmonary disease. Electronically Signed: Adam Foley DO at 21:43 EST Tel , Service support ,
[2021-08-31] MEDS: Acetaminophen 500 MG Tablet 1000 MG PO (20:47)
[2021-08-31] MEDS: 0.9% Normal Saline 1,000 ML 1000 ML IV (20:48)
[2021-08-31 20:55] LABS: Absolute Lymphocyte Count 1.06 X10^3/uL (0.83-4.51); Absolute Neutrophil Count 8.2 X10^3/uL (2.0-7.7); Basophil# 0.04 X10^3/uL; Basophil% 0.4 % (0-1); Eosinophil# 0.28 X10^3/uL; Eosinophils% 2.7 % (0-5); Hematocrit 22.2 % (37-47); Hemoglobin 7.1 g/dL (12.0-15.0); Lymphocyte # 1.06 X10^3/ul (0.83-4.51); Lymphocyte % 10.2 % (19-41); Mean Corpuscular Hgb 28.2 pg (27.0-32.0); Mean Corpuscular Volume 88.1 fL (81-99); Mean Platelet Vol. 9.3 fl (6.2-12.0); Monocyte% 7.7 % (0-10); NRBC Flagged by Analyzer 0 % (0-5); Neutrophil # 8.15 X10^3/uL (2.7-7.7); Neutrophil % 78.3 % (47-70); Platelet Count 250 K/mm3 (150-450); RBC Distribution Width CV 13.5 % (11.6-14.6); RBC Distribution Width SD 43.8 fl (35.1-43.9); Red Blood Count 2.52 M/mm3 (4.2-5.4); White Blood Count 10.4 K/mm3 (4.4-11.0)
[2021-08-31 21:04] VITALS: BP 97/60; PULSE 120; RESP 20; TEMP 39.2; O2SAT 96
[2021-08-31 21:37] LABS: ALB/GLOB Ratio 0.5 RATIO (0.9-2.4); AST(SGOT) 15 U/L (15-37); Alanine Aminotransfer ALT/SGPT 32 U/L (13-56); Albumin, Serum 1.9 g/dL (3.2-5.0); Alkaline Phosphatase 91 U/L (45-117); Anion Gap 6 (5-15); BUN 11 mg/dL (7-18); BUN/Creat Ratio 12.4 RATIO (10-20); Calcium,Total 8.4 mg/dL (8.5-10.1); Chloride 103 mmol/L (98-107); Creatinine, Serum 0.89 mg/dL (0.55-1.02); EST Glomerular Filtration Rate 72 mL/min (>60); Est Glom Filt Rate - Afr Amer 87 mL/min (>60); Estimated Creatinine Clearance 68.05 ml/min; Globulin 3.9 g/dL (2.2-4.2); Glucose 106 mg/dL (74-106); Potassium 3.5 mmol/L (3.5-5.1); Protein, Total 5.8 g/dL (6.4-8.2); Sodium Level 136 mmol/L (136-145)
[2021-08-31 22:00] VITALS: BP 86/50; PULSE 117; RESP 18; TEMP 37.4; O2SAT 96
[2021-08-31 22:09] LABS: Bacteria 0 SEEN /hpf (None Seen); Mucous, Urine 0 SEEN /hpf (<or=2+); Red Blood Cells-Urine 0 SEEN /hpf (0-5); Squamous Epithelial Cells - UA 0 SEEN /hpf (5-10); White Blood Cells 0 SEEN /hpf (0-5)
[2021-08-31 22:18] LABS: Color, Urine Yellow (Yellow); Glucose, Dipstick Normal (Normal); Ketone-Dipstick Negative (Negative); Leukocyte Esterase-Dipstick Negative /ul (Negative); Nitrite-Dipstick Negative (Negative); Occult Blood-Urine Negative /ul (Negative); Protein-Dipstick Negative (Negative); Specific Gravity, Urine 1.005 (1.002-1.030); Urine Bilirubin Dipstick Negative (Negative); Urine Clarity Sl. Cloudy (Clear); Urine Urobilinogen Normal (Normal)
[2021-08-31] MEDS: 0.9% Normal Saline 1,000 ML 999 ML IV ×2 (22:40→23:39)
[2021-08-31 23:00] VITALS: BP 80/42; PULSE 117; RESP 18; TEMP 37.6; O2SAT 97
--- NOTE | 2021-08-31 23:17 | EX.ED.DYSGE1 ---
HPI History of Present Illness Chief Complaint: Fever Informant: patient Onset/Context/Timing Onset: Weeks (1) Context: Gradual Onset Timing: Intermittent Quality: Chills Location: Generalized Worsened by: Nothing Relieved by: Tylenol, ibuprofen Narrative Narrative: Patient presents with fever and chills that have been getting worse over the past week. Patient states she feels chilled all over. Patient states she has been taking Tylenol and ibuprofen which has been helping. Patient states she had abdominoplasty on 08/19/2021 at the [facility] by Dr. Wan Rivas. Patient states that her drains were removed and she was doing well for the first week. Patient states she started developing fevers and chills over the last week. Patient admits to some increasing drainage from her wound today. PFSH PFSH Medical History no medical history no medical history Home Medications ranitidine HCl 150 mg PO DAILY PRN 01/28/18 [History Last Taken 05/20/18 05:00] oxycodone-acetaminophen 1 tab PO Q6H PRN 08/31/21 [History Last Taken Unknown] Allergy/AdvReac Type Severity Reaction Status Date / Time latex Allergy Hives Verified 08/31/21 20:04 Sulfa (Sulfonamide Allergy Unknown Verified 08/31/21 20:04 Antibiotics) Surgical History History of abdominoplasty History of bilateral breast reduction surgery History of hysterectomy Social History Smoking Status: Never smoker ROS ROS ED Constitutional Constitutional ED: Reports chills and fever(s) Eyes Eyes: Denies blurry vision or change in vision ENT ENT ED: Denies rhinorrhea or sore throat Cardiovascular Cardiovascular: Denies chest pain or palpitations Respiratory/Chest Respiratory/Chest: Denies cough or dyspnea Gastrointestinal Gastrointestinal: Reports abdominal pain; Denies nausea or vomiting Genitourinary Genitourinary ED: Denies dysuria or hematuria Musculoskeletal Musculoskeletal: Denies back pain or neck pain Integumentary Reports rash; Denies abscess Neurologic Neurologic: Denies headache(s) or weakness Allergic/Immunologic Allergic/Immunologic ED: Denies mouth swelling or urticaria EXAM Physical Exam Const Vital Signs: 08/31/21 20:00 08/31/21 20:33 08/31/21 21:04 Temperature 100 F H 102.5 F H Temperature Source Oral Oral Pulse Rate 125 H 120 H Respiratory Rate 20 H 20 H Respiratory Effort Normal Non-Labored Respiratory Pattern Normal Blood Pressure 119/90 H 97/60 Blood Pressure Mean 99 72 Pulse Ox 100 96 Oxygen Delivery Method Room Air Room Air 08/31/21 22:00 08/31/21 23:00 09/01/21 00:00 Temperature 99.3 F H 99.7 F H 98.2 F Temperature Source Oral Oral Oral Pulse Rate 117 H 117 H 108 H Respiratory Rate 18 18 18 Respiratory Effort Respiratory Pattern Blood Pressure 86/50 L 80/42 L 97/58 L Blood Pressure Mean 62 54 71 Pulse Ox 96 97 98 Oxygen Delivery Method Room Air Room Air Room Air Positive well nourished and well developed General Appearance ED: well developed HEENT Reports moist mucous membranes Neck supple and no JVD Resp normal respiratory effort and clear to auscultation bilaterally Cardio regular rhythm Rate: tachycardic GI Palpation: soft and tender LLQ, RLQ and suprapubic; Negative for guarding or rebound tenderness present Neuro oriented x3, CN's II-XII intact bilaterally and no sensory deficits noted Sensorium / Orientation: alert Motor Exam: strength 5/5 throughout Psych mental status grossly normal Skin Skin Narrative: There is erythema warmth over the lower abdomen. There is some induration noted. There is some serosanguineous drainage coming from the wound. There is no abida purulent drainage noted. There is tenderness along the incision and lower abdomen. MDM MDM MDM Narrative Medical decision making narrative: Patient was given IV fluids. CBC shows an anemia with a hemoglobin of 7.1 and hematocrit of 22.2. This is most likely from the recent surgery. Comprehensive metabolic profile was essentially within normal limits. Lactate was normal. Urinalysis does not show any evidence of urinary tract infection. CTA of the chest was obtained. There is no pulmonary embolism or acute cardiopulmonary process. This was interpreted by the radiologist and reviewed by myself. Blood cultures were obtained and are pending. Wound cultures were obtained. COVID-19 rapid antigen was obtained and was negative. Patient's blood pressure did not improve with the initial liter bolus of normal saline. Patient was given a repeat bolus of 2 L of normal saline. Patient was started on Zosyn and vancomycin. Patient's blood pressure improved after 3 L of fluid. Patient was given a dose of morphine. Patient requested to be admitted here at [facility]. Case was discussed with the hospitalist. He will evaluate the patient. He recommended obtaining an arterial blood gas. He also recommended contacting plastic surgery or general surgery. Plastic surgery was unavailable. Case was discussed with Dr. Huerta from general surgery. He recommended transferring the patient back to the facility that did her surgery. He does not want to be involved with care of the patient. Case was discussed with Dr. Mcfarland who was covering for Dr. Wan Rivas. She recommended transferring the patient back to [facility] where they can evaluate the patient and her wound. Case was discussed with Dr. Shelton from the emergency department. He accepted the transfer. Patient understands and is agreeable with the plan. All questions were answered. Lab Data Attestation: I reviewed the patient's lab results. Labs: Laboratory Results - last 24 hr 08/31/21 08/31/21 08/31/21 20:46 20:46 20:46 WBC 10.4 RBC 2.52 L Hgb 7.1 L Hct 22.2 L MCV 88.1 MCH 28.2 MCHC 32.0 RDW Std Deviation 43.8 RDW Coeff of Lazaro 13.5 Plt Count 250 MPV 9.3 Immature Gran % (Auto) 0.700 Neut % (Auto) 78.3 H Lymph % (Auto) 10.2 L [place] % (Auto) 7.7 Eos % (Auto) 2.7 Baso % (Auto) 0.4 Absolute Neuts (auto) 8.2 H Absolute Lymphs (auto) 1.06 Nucleated RBC % 0 Sodium 136 Potassium 3.5 Chloride 103 Carbon Dioxide 27.0 Anion Gap 6 BUN 11 Creatinine 0.89 Estim Creat Clear Calc 68.05 Est GFR (MDRD) Af Amer 87 Est GFR (MDRD) Non-Af 72 BUN/Creatinine Ratio 12.4 Glucose 106 Lactic Acid 1.0 Calcium 8.4 L Total Bilirubin 0.40 AST 15 ALT 32 Alkaline Phosphatase 91 Total Protein 5.8 L Albumin 1.9 L Globulin 3.9 Albumin/Globulin Ratio 0.5 L Urine Color Urine Clarity Urine pH Ur Specific [place] Urine Protein Urine Glucose (UA) Urine Ketones Urine Occult Blood Urine Nitrite Urine Bilirubin Urine Urobilinogen Ur Leukocyte Esterase Urine RBC Urine WBC Ur Squamous Epith Cells Urine Bacteria Urine Mucus 08/31/21 22:02 WBC RBC Hgb Hct MCV MCH MCHC RDW Std Deviation RDW Coeff of Lazaro Plt Count MPV Immature Gran % (Auto) Neut % (Auto) Lymph % (Auto) [place] % (Auto) Eos % (Auto) Baso % (Auto) Absolute Neuts (auto) Absolute Lymphs (auto) Nucleated RBC % Sodium Potassium Chloride Carbon Dioxide Anion Gap BUN Creatinine Estim Creat Clear Calc Est GFR (MDRD) Af Amer Est GFR (MDRD) Non-Af BUN/Creatinine Ratio Glucose Lactic Acid Calcium Total Bilirubin AST ALT Alkaline Phosphatase Total Protein Albumin Globulin Albumin/Globulin Ratio Urine Color Yellow Urine Clarity Sl. Cloudy Urine pH 6.0 Ur Specific [place] 1.005 Urine Protein Negative Urine Glucose (UA) Normal Urine Ketones Negative Urine Occult Blood Negative Urine Nitrite Negative Urine Bilirubin Negative Urine Urobilinogen Normal Ur Leukocyte Esterase Negative Urine RBC 0 SEEN Urine WBC 0 SEEN Ur Squamous Epith Cells 0 SEEN Urine Bacteria 0 SEEN Urine Mucus 0 SEEN ABG Data ABG results: ABG 08/31/21 23:44 Specimen Type ZOË VBG pH 7.45 H VBG pO2 69 H VBG HCO3 22 VBG Total CO2 23 VBG O2 Sat (Calc) 95 H VBG Base Excess -2 L POC Mix VBG pCO2 Pt Tmp 32.3 L Radiography Diagnostic Testing: Clinical Impression(s) from Imaging Studies Chest CTA 08/31/21 20:29 IMPRESSION: No pulmonary embolism or acute cardiopulmonary disease. Electronically Signed: Adam Foley DO at 21:43 EST Tel , Service support , Discharge Plan Triage Chief Complaint: Fever ED Provider: Jose Jean Dx/Rx/DC Orders Clinical Impression: Abdominal wall cellulitis, Sepsis Prescriptions: No Action ranitidine HCl 150 MG tablet 150 mg PO DAILY PRN (Reason: Heartburn) RF: 0 oxycodone-acetaminophen 5-325 mg tablet 1 tab PO Q6H PRN (Reason: Pain) RF: 0 Primary Care Provider: Jorge Luis Nunez Referrals: Jorge Luis Nunez MD [Primary Care Provider] - Disposition Disposition: Acute Care Hospital Discharge Location: [facility]
--- NOTE | 2021-08-31 23:20 | PCM.HP.STD ---
HPI - General HPI Narrative STEPHANIE ROSENTHAL, is a 51 F with a significant history of obesity who presents to the emergency department with fever and chills. Her symptoms started about 6 days ago. On the day of presentation her temperature was 102.1 Fahrenheit . 4. Of over 1 year patient lost about 82 pounds through diet and exercise. Thereafter her lower abdominal wall was sagging again so she had an abdominoplasty on 08/19/2021. She saw her surgeon 5 days before presentation and drains were removed. Thereafter she felt better but on the same night she began to have fever and chills again. She reports excessive drainage from her lower abdominal strong right worse than left. When she gets she has so much draining going down her legs. She reports nausea. She reports constipation about a week ago and for which she took MiraLAX. 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 PFSH Medical History no medical history Home Medications ranitidine HCl 150 mg PO DAILY PRN 01/28/18 [History Last Taken 05/20/18 05:00] oxycodone-acetaminophen 1 tab PO Q6H PRN 08/31/21 [History Last Taken Unknown] Allergy/AdvReac Type Severity Reaction Status Date / Time latex Allergy Hives Verified 08/31/21 20:04 Sulfa (Sulfonamide Allergy Unknown Verified 08/31/21 20:04 Antibiotics) Surgical History History of abdominoplasty History of bilateral breast reduction surgery History of hysterectomy Social History Smoking Status: Never smoker ROS ROS Narrative Constitutional: Reports fever and chills. Reports about 82 pounds intentional weight loss through diet and exercises for over 1 year. Eyes: Denies blurry vision, change in eye color, change in vision, discharge from eye(s), double vision, erythema, eye pain, loss of vision or other HEENT: Denies abnormal hearing, dysphagia, ear pain, epistaxis, headache(s), hearing loss, nasal congestion, nasal discharge, post nasal drip, sinus pressure, sore throat or other Cardiovascular: Denies chest pain or palpitations. Denies dyspnea on exertion, orthopnea and paroxysmal nocturnal dyspnea Respiratory/Chest: Reports shortness of breath. Denies cough, excessive phlegm production. Gastrointestinal: Reports abdominal pain. Reports nausea. Reports constipation. Denies coffee ground emesis, diarrhea, dyspepsia, hematemesis, hematochezia, loose stools, melena, vomiting or other Genitourinary: Denies burning urination, difficulty urinating, dysuria, hematuria, nocturia, urinary frequency, urinary hesitancy, urinary incontinence, urinary urgency or other Musculoskeletal: Denies arthralgias, back pain, joint pain, joint stiffness, joint swelling, myalgias, neck pain or other Neurologic: Denies abnormal gait, abnormal speech, confusion, disequilibrium, dizziness, focal weakness, headache(s), numbness, paresthesias, seizure-like activity, seizures, syncope, tingling, tremor(s) or other Psychiatric: Denies anxiety, depression, homicidal ideation, suicidal ideation or other Endocrinology: Denies change in body appearance, cold intolerance, excessive sweating, heat intolerance, polydipsia, polyuria or other Hematologic/Lymphatic: Denies anemia, easy bleeding, easy bruising, lymphadenopathy or other Integumentary: Denies rashes Allergic/Immunologic: Denies rhinitis, hives, eczema, asthma or other Vital Signs Vital Signs Vital Signs: 08/31/21 20:00 08/31/21 20:33 08/31/21 21:04 Temperature 100 F H 102.5 F H Temperature Source Oral Oral Pulse Rate 125 H 120 H Respiratory Rate 20 H 20 H Respiratory Effort Normal Non-Labored Respiratory Pattern Normal Blood Pressure 119/90 H 97/60 Blood Pressure Mean 99 72 Pulse Ox 100 96 Oxygen Delivery Method Room Air Room Air 08/31/21 22:00 08/31/21 23:00 Temperature 99.3 F H 99.7 F H Temperature Source Oral Oral Pulse Rate 117 H 117 H Respiratory Rate 18 18 Respiratory Effort Respiratory Pattern Blood Pressure 86/50 L 80/42 L Blood Pressure Mean 62 54 Pulse Ox 96 97 Oxygen Delivery Method Room Air Room Air Weight Weight: 85.729 kg Body Mass Index (BMI) 31.4 Physical Exam Narrative Physical exam: General: Well-nourished, well-developed. Head: Normocephalic, atraumatic, no tenderness Eyes: PERRLA, EOMI ENT, no trauma, moist mucous membranes, no rhinorrhea Neck: Nontender, full range of motion, no spinal tenderness, deformities, step-off CVS: Regular rate and rhythm. S1-S2 present. No murmur, gallop or rub. Respiratory : clear to auscultation bilaterally, chest wall nontender, no wheezing Abdomen: Soft, nontender, nondistended, normal bowel sounds. : Pelvic area tenderness and swelling. Packing in place. Back: Nontender, no CVA tenderness, no midline spinal tenderness, deformities, step-offs Extremities: Nontender full range of motion, no trauma Skin: Normal color, no trauma, abrasions Neuro: Alert, oriented, cranial nerves II through XII grossly intact. Psychiatry: Normal mood. Normal affect. Not depressed. Not anxious. Results Lab / Micro Data Result Diagrams: 08/31/21 20:46 08/31/21 20:46 Labs: Laboratory Results - last 24 hr 08/31/21 20:46: WBC 10.4, RBC 2.52 L, Hgb 7.1 L, Hct 22.2 L, MCV 88.1, MCH 28.2, MCHC 32.0, RDW Std Deviation 43.8, RDW Coeff of Lazaro 13.5, Plt Count 250, MPV 9.3, Immature Gran % (Auto) 0.700, Neut % (Auto) 78.3 H, Lymph % (Auto) 10.2 L, [place] % (Auto) 7.7, Eos % (Auto) 2.7, Baso % (Auto) 0.4, Absolute Neuts (auto) 8.2 H, Absolute Lymphs (auto) 1.06, Nucleated RBC % 0 08/31/21 20:46: Sodium 136, Potassium 3.5, Chloride 103, Carbon Dioxide 27.0, Anion Gap 6, BUN 11, Creatinine 0.89, Estim Creat Clear Calc 68.05, Est GFR (MDRD) Af Amer 87, Est GFR (MDRD) Non-Af 72, BUN/Creatinine Ratio 12.4, Glucose 106, Calcium 8.4 L, Total Bilirubin 0.40, AST 15, ALT 32, Alkaline Phosphatase 91, Total Protein 5.8 L, Albumin 1.9 L, Globulin 3.9, Albumin/Globulin Ratio 0.5 L 08/31/21 20:46: Lactic Acid 1.0 08/31/21 22:02: Urine Color Yellow, Urine Clarity Sl. Cloudy, Urine pH 6.0, Ur Specific [place] 1.005, Urine Protein Negative, Urine Glucose (UA) Normal, Urine Ketones Negative, Urine Occult Blood Negative, Urine Nitrite Negative, Urine Bilirubin Negative, Urine Urobilinogen Normal, Ur Leukocyte Esterase Negative, Urine RBC 0 SEEN, Urine WBC 0 SEEN, Ur Squamous Epith Cells 0 SEEN, Urine Bacteria 0 SEEN, Urine Mucus 0 SEEN Micro: Microbiology 08/31/21 20:40 Nasal Secretion SARS-CoV-2 Antigen (Rapid) - Final Radiology Impression Chest CTA 08/31/21 20:29 IMPRESSION: No pulmonary embolism or acute cardiopulmonary disease. Electronically Signed: Adam Foley, at 21:43 EST Tel , Service support , Assessment & Plan Assessment/Plan (1) Abdominal wall cellulitis: (2) Hypotension: QUALIFIERS: Hypotension type: other hypotension type Qualified Code(s): I95.89 - Other hypotension PLAN: Abdominal wall cellulitis and hypotension SIRS criteria: Blood pressure of less than 90; T-max of 102.5 Source of infection lower abdominal wall. qSOFA is 0. Discussed emergent dependency to get ABG. Chest CT reviewed showed no acute cardiopulmonary process. Received vancomycin and Zosyn the emergency department. Vancomycin and Zosyn to be continued. Patient is receiving normal saline bolus per septic shock protocol. Emergency department doctor tried to reach . Patient will like to stay at our hospital if possible. Discussed with general surgeon on-call who recommended that [facility] be notified. ED doctor to discuss case with [facility]. If [facility] is unable to accept emergent conduct will discuss with other tertiary institutions. In the event that no other hospital can except patient then patient will stay at [facility] on antibiotics; follow with for possible plastic surgeon availability or transfer to outside institution. If patient is to stay at the hospital patient will be admitted to intensive care unit and electrode turner and finisher will be consulted. Charges/Coding Multi Select Codes Visit Charges Office Visit/Consults: [id number] ED Visit; High/Urgent Severity
--- NOTE | 2021-08-31 23:47 | CPS ---
Addendum entered by Shonda Johnson 08/31/21 23:50: venous results: pH 7.448, pCO2 32.3, pO2 68.8, HCO3 22.3, BE -1.7, SO2 94.5 Original Note: pt refused abg -venous gas done
[2021-08-31 23:50] LABS: Blood Gas Specimen Type VEN; VBG BASE EXCESS -2 mmol/L (-1.0-3.5); VBG Bicarbonate 22 mmol/L (22-26); VBG PO2 69 mmHg (25-40); VBG SO2 95 % (50-70); VBG TCO2 23 mmol/L (23-33); VBG pCO2 32.3 mmHg (41-51); VBG pH 7.45 (7.32-7.42)
[2021-09-01] VITALS: BP 97/58; PULSE 108; RESP 18; TEMP 36.8; O2SAT 98
--- NOTE | 2021-09-01 00:04 | ED.RN ---
attempted transfer to [facility] they are full and not accepting patients at this time
--- NOTE | 2021-09-01 00:04 | ED.RN ---
page out to [facility] for admission spoke to nursing finishing area supervisor who will page doctor at this time
[2021-09-01 00:59] VITALS: BP 102/60; PULSE 101; RESP 18; TEMP 36.9; O2SAT 97
[2021-09-01] MEDS: Morphine 4 MG/ML Syringe IV (01:02)
[2021-09-01 02:25] VITALS: BP 102/60; PULSE 103; RESP 18; TEMP 37; O2SAT 98
== END 2021-09-01 04:02 | disposition short-term general hospital (02) ==
PROVIDERS: Emergency Provider Emergency Medicine; PCP Family Medicine
DX: L03.311 Cellulitis of abdominal wall (principal); A41.9 Sepsis, unspecified organism
CPT/HCPCS: 71275; 80053; 81001; 82803; 83605; 85025; 87040; 87070; 87077; 87186; 87205; 87426; 96365; 96366; 96367; 96375; 99285; J7030; J7040; Q9967; A4216

== ENCOUNTER 2022-04-30 06:06 | Day surgery (SDC) | payer OTHER, SELFPAY ==
[2022-04-30 06:54] VITALS: BP 143/92; PULSE 65; RESP 14; TEMP 37.2; O2SAT 100; BMI 35.2
[2022-04-30] MEDS: Lactated Ringers 1,000 ML 15 ML IV (07:09)
--- NOTE | 2022-04-30 07:18 | H&P.OPEN ---
HPI - General HPI Narrative STEPHANIE ROSENTHAL, is a 51 F who presents for screening colonoscopy. Patient never had a previous colonoscopy. Patient denies a family history of colon cancer. Patient has bowel movements about every other day denies any blood. Patient denies any chronic abdominal pain/nausea/vomiting/reflux. [facility] Medical History (Updated 04/28/22 @ 08:47 by Maryan Romano) History of steroid therapy Non-smoker Wears glasses Home Medications NK 04/30/22 [History Last Taken Unknown] Allergy/AdvReac Type Severity Reaction Status Date / Time latex Allergy Hives Verified 04/28/22 08:39 Sulfa (Sulfonamide Allergy Unknown Verified 04/28/22 08:39 Antibiotics) Surgical History History of abdominoplasty History of bilateral breast reduction surgery History of hysterectomy Social History Smoking Status: Never smoker Past Medical/Surgical History Planned Operation Planned Operative Procedure/s: Colonoscopy S.O.S: No Previous Hospitalizations/Surgeries HX Hospitalizations: Yes (08/2021 septic post Abdominoplasty) HX of Surgeries: X2 TUBAL LIGATION 1992 GALLBLADDER 2008 BREAST REDUCTION 1996 BREAST BIOPSY 2013 Any Problems With Anesthesia: Yes (difficult time waking up) You/Your Family Experience Fever (Hyperthermia) With Anes: No Cholinesterase deficiency: No Cardiovascular Hx Chest Pain within Last 2 months: No Hx of Irregular Heartbeat and/or Afib: No Hx Heart Attack: No Hx Congestive Heart Failure: No Hx Rheumatic Fever: No Hx Hypertension: No Hx Internal Defibrillator: No Hx Pacemaker: No Hx Cardiac Catheterization: No Hx Cardiac Surgery/Stents/Etc.: No Hx Stress Test: No Hx Pain in Legs when Walking/Leg Cramps: No Respiratory Chronic Cough: No HX of Shortness of Breath: No Hoarseness: No Hx Chronic Obstructive Pulmonary Disease (COPD): No Hx Asthma: No Hx Emphysema: No Hx Sleep Apnea: No Hx Respiratory Tract Infection/Cold (presently): No Do You Snore Loudly (louder than talking or can be heard): No Do You Often Feel Tired/ Fatigued/ Sleepy Dring Daytime?: No Has Anyone Observed You Stop Breathing During Sleep?: No Result (for STOP score): Negative Hx Smoking: No Smoking Status: Never smoker Gastrointestinal Hx Gastroesophageal Reflux: No (OCCAS HEARTBURN) Hx Gastrointestinal Disorders: No Hx Gastrointestinal Bleed: No Hx Ulcer: No Hx Hiatal Hernia: No Difficulty Chewing/Swallowing: No Special diet followed at home: No Hx Unplanned Weight Loss of 20#: No HX Unplanned Weight Gain of 20#: No Neurological Hx Seizures: No HX Syncope/Blackout Spells/Unconsciousness: No Hx Transient Ischemic Attacks (TIA): No Hx Multiple Sclerosis: No Hx Parkinson's Disease: No Hx Head/Neck Injury: No Hx Headaches: No Hx Back Injury/Pain: No Recent Onset of Speech Difficulty: No Restless Legs: No Does patient have nerve stimulator: No Blood Disorder Hx Leukemia: No Bleeding Tendencies: No Hx Deep Vein Thrombosis: No Hx High Cholesterol: No Blood Transmitted Disease: No Hx Hepatitis: No Hx Cirrhosis: No Hx Anemia: Yes (PER HX) Hx Blood Disorders: No Reproduction : No Is Patient Lactating: No Hx Hysterectomy: No Hx Tubal Ligation: Yes Are You Post Menopause: No Genitourinary Hx Renal Disease: No Musculoskeletal Hx Arthritis: No Hx Rheumatoid Arthritis: No Hx Gout: No Recent Onset of an Orthopedic Problem: No Endocrine Hx Diabetes: No Thyroid Disease: No Hx Steroid Therapy: No Psycho/Social Hx Substance Use: No Hx Alcohol Use: Yes (2-3 TIMES/YR) Hx Anxiety: No Hx Depression: No Mental Illness: No Hx Dementia: No Miscellaneous Hx Cancer: No Recent Exposure to Contagious Disease: No Hx of C-Diff: No Any Loose Teeth: No Allergies latex Allergy (Verified 04/28/22 08:39) Hives Sulfa (Sulfonamide Antibiotics) Allergy (Verified 04/28/22 08:39) Unknown Discharge Is Pt Admitted From a Halfway, or a Prison: No Who Could Help: After D/C, Where Do you Plan to Go: Return Home Vital Signs Vital Signs Vital Signs: 04/30/22 06:54 04/30/22 06:54 Temperature 98.9 F Temperature Source Temporal Pulse Rate 65 Respiratory Rate 14 Respiratory Pattern Normal Blood Pressure 143/92 H Blood Pressure Mean 109 Blood Pressure Source Monitor Blood Pressure Position Semi-Fowlers Blood Pressure Location Left Arm Pulse Ox 100 Oxygen Delivery Method Room Air Weight Weight: 211 lb 10.3 oz Body Mass Index (BMI) 35.2 Physical Exam Const alert, oriented x3 and no apparent distress HEENT normocephalic and head/scalp atraumatic Resp normal respiratory effort Cardio regular rate GI soft to palpation and non-tender; Negative for non-distended Palpation: Negative for guarding Extremity no clubbing, cyanosis or edema Neuro CN's II-XII intact bilaterally Psych mental status grossly normal Assessment & Plan Assessment/Plan (1) Encounter for screening for malignant neoplasm of colon: Surgery Risks - Colonoscopy Risks Include but are not Limited To: Risks include but are not limited to: Bleeding, perforation requiring further surgery, inability to complete colonoscopy requiring barium enema.
[2022-04-30 07:58] VITALS: BP 129/88; BP 143/92; PULSE 91; RESP 18; TEMP 36.9; O2SAT 99
--- NOTE | 2022-04-30 08:00 | OP.COLON_ITS ---
Patient Name: Brenda Jarvis Procedure Date: 04/30/2022 7:15 AM Date of : 1970 Age: 51 Procedure: Colonoscopy Indications: Screening for colorectal malignant neoplasm Providers: Jelena Medina MD Medicines: Monitored Anesthesia Care Patient Profile: This is a 51 year old female. Last Colonoscopy: none. The patient's first colonoscopy is today. Complications: No immediate complications. Procedure: Pre-Anesthesia Assessment: - Prior to the procedure, a History and Physical was performed, and patient medications and allergies were reviewed. The patient's tolerance of previous anesthesia was also reviewed. The risks and benefits of the procedure and the sedation options and risks were discussed with the patient. All questions were answered, and informed consent was obtained. Prior Anticoagulants: The patient has taken no previous anticoagulant or antiplatelet agents. ASA Grade Assessment: Per anesthesia. After reviewing the risks and benefits, the patient was deemed in satisfactory condition to undergo the procedure. After I obtained informed consent, the scope was passed under direct vision. Throughout the procedure, the patient's blood pressure, pulse, and oxygen saturations were monitored continuously. The colonoscope was introduced through the anus and advanced to the cecum, identified by the appendiceal orifice, ileocecal valve and palpation. The colonoscopy was performed without difficulty. The patient tolerated the procedure well. The quality of the bowel preparation was good. Scope In: 7:37:44 AM Scope Withdrawal Time 0 hours 9 minutes 0 seconds Scope Out: 7:52:47 AM Total Procedure Duration Time 0 hours 15 minutes 3 seconds Findings: Hemorrhoids were found on perianal exam. The entire examined colon appeared normal on direct and retroflexion views. Impression: - Hemorrhoids found on perianal exam. - The entire examined colon is normal on direct and retroflexion views. - No specimens collected. Recommendation: - Discharge patient to home. - Resume previous diet. - Continue present medications. - Repeat colonoscopy in 10 years for screening purposes. Procedure Code(s): --- Professional --- 87144, PT, Colonoscopy, flexible; diagnostic, including collection of specimen(s) by brushing or washing, when performed (separate procedure) Diagnosis Code(s): --- Professional --- Z12.11, Encounter for screening for malignant neoplasm of colon K64.9, Unspecified hemorrhoids CPT copyright 2017 [employer]. All rights reserved. The codes documented in this report are preliminary and upon town justice review may be revised to meet current compliance requirements. MD Jelena Ashton MD 04/30/2022 8:00:03 AM This report has been signed electronically. Number of Addenda: 0 Note Initiated On: 04/30/2022 7:15 AM
--- NOTE | 2022-04-30 08:01 | OP.CCLET_ITS ---
04/30/2022 Jorge Luis Nunez MD [address] [id number] Re : Colonoscopy procedure for Brenda [facility]inst. [facility] Dear Dr. Nunez This procedure was performed on Saturday, April 30, 2022. My impressions and recommendations are as follows: Impressions : - Hemorrhoids found on perianal exam. - The entire examined colon is normal on direct and retroflexion views. - No specimens collected. Recommendations : - Discharge patient to home. - Resume previous diet. - Continue present medications. - Repeat colonoscopy in 10 years for screening purposes. My findings are described in the full procedure note, which is enclosed. If I can be of further assistance, please feel free to contact me at Doctor phone number(s): , Work: . Sincerely, MD Jelena Ashton MD 04/30/2022 8:00:03 AM This report has been signed electronically.
[2022-04-30 08:05] VITALS: BP 125/81; BP 143/92; PULSE 74; RESP 16; O2SAT 100
[2022-04-30 08:10] VITALS: BP 117/81; BP 143/92; PULSE 54; RESP 16; O2SAT 100
[2022-04-30 08:14] VITALS: BP 136/86; BP 143/92; PULSE 57; RESP 14; O2SAT 99
[2022-04-30 08:24] VITALS: BP 143/92
== END 2022-04-30 08:33 | disposition home or self-care (01) ==
LOC: EN 06:07 → AC 06:09
PROVIDERS: PCP Family Medicine; Referring Provider Family Medicine; Visit Provider Surgery
PROC: 0DJD8ZZ Inspection of Lower Intestinal Tract, Via Natural or Artificial Opening Endoscopic (ICD-10-PCS; CPT 45378; principal; 2022-04-30 07:25)
DX: Z12.11 Encounter for screening for malignant neoplasm of colon (principal); K64.9 Unspecified hemorrhoids
CPT/HCPCS: 45378; J7120; J2405

== ENCOUNTER → 2022-09-16 | Outpatient (CLI) | payer OTHER, SELFPAY ==
--- NOTE | 2022-09-16 07:36 | BI_ITS ---
MAMMOGRAPHY - BILATERAL SCREENING REASON FOR EXAM: Female, 52 years old. Routine annual screening examination. PERTINENT HISTORY: History of prior bilateral breast reduction surgery and right ultrasound-guided breast biopsy. No personal history of breast cancer. TECHNIQUE: Digital bilateral breast sangeeta (3D mammographic acquisition) in the CC and MLO projections. 2-D mediolateral oblique (MLO) and craniocaudad (CC) views of both breasts were obtained. CAD: Full Field Digital Mammography with Computer Added Detection was performed. COMPARISON: Mammogram from 07/19/2021, 05/21/2020. FINDINGS: Breast Composition: There are scattered areas of fibroglandular density. There are no dominant masses or suspicious calcifications. Stable biopsy marker adjacent to a stable 5 mm nodule in the right upper outer breast. Additional stable biopsy marker in the right lateral retroareolar breast. No other significant abnormalities are identified. There has been no significant change since the prior study. BI/SCRN MAMM (CAD)W/SANEGETA BILAT IMPRESSION: Stable bilateral screening mammogram. Yearly follow-up mammogram recommended. (A) ASSESSMENT CATEGORY: BIRADS Category 2: Benign. A letter regarding these results will be sent to the patient by the facility within 30 days. Approximately 10% of breast cancers are not detected by mammography. A normal mammogram should not delay biopsy of a clinically suspicious abnormality. Electronically Signed: Jesús Nikita, at 11:22 EST ,
== END | disposition home or self-care (01) ==
LOC: OPBI 07:33
PROVIDERS: PCP Family Medicine; Referring Provider Family Medicine; Visit Provider Family Medicine
DX: Z12.31 Encounter for screening mammogram for malignant neoplasm of breast (principal); N63.11 Unspecified lump in the right breast, upper outer quadrant; N63.41 Unspecified lump in right breast, subareolar
CPT/HCPCS: 77063; 77067

== ENCOUNTER 2022-10-06 09:55 | Outpatient (RCR) | payer OTHER, SELFPAY | END 2022-10-21 23:59 | LOC: NS 09:55 | PROVIDERS: PCP Family Medicine; Visit Provider Family Medicine | DX: Z71.3 Dietary counseling and surveillance (principal); E66.9 Obesity, unspecified; Z68.34 Body mass index [BMI] 34.0-34.9, adult | CPT/HCPCS: 97802 ==

== ENCOUNTER 2022-10-27 11:11 | Outpatient (RCR) | payer OTHER, SELFPAY | END 2022-11-18 23:59 | LOC: NS 11:11 | PROVIDERS: PCP Family Medicine; Visit Provider Family Medicine | DX: Z71.3 Dietary counseling and surveillance (principal); E66.9 Obesity, unspecified; Z68.35 Body mass index [BMI] 35.0-35.9, adult | CPT/HCPCS: 97803 ==

== ENCOUNTER → 2022-10-27 | Outpatient (CLI) | payer OTHER, SELFPAY ==
[2022-10-27 10:43] LABS: Thyroid Stim Hormone (TSH) 1.35 uIU/mL (0.358-3.74)
== END | disposition home or self-care (01) ==
LOC: LAB 09:46
PROVIDERS: PCP Family Medicine; Referring Provider Family Medicine; Visit Provider Family Medicine
DX: E66.9 Obesity, unspecified (principal)
CPT/HCPCS: 36415; 84443

== ENCOUNTER → 2022-11-28 | Outpatient (CLI) | payer OTHER, SELFPAY ==
[2022-11-28] MEDS: Zolpidem Tartrate 5 MG Tablet PO (20:22)
== END | disposition home or self-care (01) ==
LOC: SL 19:55
PROVIDERS: PCP Family Medicine; Visit Provider Nurse Practitioner Acute Care
DX: G47.10 Hypersomnia, unspecified (principal)
CPT/HCPCS: 95810

== ENCOUNTER → 2023-01-14 | Outpatient (CLI) | payer OTHER, SELFPAY ==
[2023-01-14 17:15] LABS: Absolute Lymphocyte Count 2.49 X10^3/uL (0.83-4.51); Absolute Neutrophil Count 3.5 X10^3/uL (2.0-7.7); Basophil# 0.05 X10^3/uL; Basophil% 0.8 % (0-1); Eosinophil# 0.08 X10^3/uL; Eosinophils% 1.2 % (0-5); Hematocrit 34.8 % (37-47); Hemoglobin 11.4 g/dL (12.0-15.0); Lymphocyte # 2.49 X10^3/ul (0.83-4.51); Lymphocyte % 37.4 % (19-41); Mean Corp Hgb Conc 32.8 g/dL (32-36); Mean Corpuscular Hgb 28.4 pg (27.0-32.0); Mean Corpuscular Volume 86.6 fL (81-99); Monocyte# 0.48 X10^3/uL; Monocyte% 7.2 % (0-10); NRBC Flagged by Analyzer 0 % (0-5); Neutrophil # 3.51 X10^3/uL (2.7-7.7); Neutrophil % 52.6 % (47-70); Platelet Count 214 K/mm3 (150-450); RBC Distribution Width CV 13.1 % (11.6-14.6); RBC Distribution Width SD 41.3 fl (35.1-43.9); Red Blood Count 4.02 M/mm3 (4.2-5.4); White Blood Count 6.7 K/mm3 (4.4-11.0)
[2023-01-14 17:41] LABS: ALB/GLOB Ratio 1.1 RATIO (0.9-2.4); AST(SGOT) 13 U/L (15-37); Alanine Aminotransfer ALT/SGPT 24 U/L (13-56); Albumin, Serum 3.7 g/dL (3.2-5.0); Alkaline Phosphatase 97 U/L (45-117); Anion Gap 5 (5-15); BUN 19 mg/dL (7-18); Calcium,Total 9.1 mg/dL (8.5-10.1); Chloride 112 mmol/L (98-107); Cholesterol 155 mg/dL (200); EST Glomerular Filtration Rate 70 mL/min (>60); Est Glom Filt Rate - Afr Amer 84 mL/min (>60); Globulin 3.5 g/dL (2.2-4.2); Glucose 108 mg/dL (74-106); High Density Lipoprotein 43 mg/dL; Potassium 3.7 mmol/L (3.5-5.1); Protein, Total 7.2 g/dL (6.4-8.2); Sodium Level 139 mmol/L (136-145); Thyroid Stim Hormone (TSH) 1.34 uIU/mL (0.358-3.74); Triglycerides 138 mg/dL
== END | disposition home or self-care (01) ==
LOC: LAB 16:56
PROVIDERS: PCP Family Medicine; Visit Provider Emergency Medicine
DX: Z13.228 Encounter for screening for other metabolic disorders (principal)
CPT/HCPCS: 36415; 80053; 82465; 83036; 83718; 84443; 84478; 85025

== ENCOUNTER → 2023-02-03 | Outpatient (CLI) | payer OTHER, SELFPAY ==
[2023-02-03 08:30] LABS: Hematocrit 39.4 % (37-47); Hemoglobin 12.7 g/dL (12.0-15.0); Mean Corp Hgb Conc 32.2 g/dL (32-36); Mean Corpuscular Hgb 28.2 pg (27.0-32.0); Mean Corpuscular Volume 87.6 fL (81-99); Mean Platelet Vol. 10.1 fl (6.2-12.0); Platelet Count 200 K/mm3 (150-450); RBC Distribution Width SD 41.1 fl (35.1-43.9); White Blood Count 6.2 K/mm3 (4.4-11.0)
[2023-02-03 08:50] LABS: ALB/GLOB Ratio 1.1 RATIO (0.9-2.4); AST(SGOT) 19 U/L (15-37); Alanine Aminotransfer ALT/SGPT 26 U/L (13-56); Alkaline Phosphatase 107 U/L (45-117); Anion Gap 7 (5-15); BUN 23 mg/dL (7-18); BUN/Creat Ratio 24.9 RATIO (10-20); Calcium,Total 9.4 mg/dL (8.5-10.1); Chloride 108 mmol/L (98-107); Cholesterol 177 mg/dL (200); Creatinine, Serum 0.92 mg/dL (0.55-1.02); EST Glomerular Filtration Rate 68 mL/min (>60); Est Glom Filt Rate - Afr Amer 82 mL/min (>60); Globulin 3.6 g/dL (2.2-4.2); Glucose 104 mg/dL (74-106); High Density Lipoprotein 51 mg/dL; Potassium 4.1 mmol/L (3.5-5.1); Protein, Total 7.6 g/dL (6.4-8.2); Sodium Level 140 mmol/L (136-145); Triglycerides 93 mg/dL; Very Low Density Lipoprotein 19 mg/dL (5-40)
[2023-02-03 09:11] LABS: Insulin 10.2 mU/L (2.6-37.6); Vitamin D,25 Hydroxy 41.1 ng/mL
[2023-02-03 09:15] LABS: Hemoglobin A1c 5.1 % (3.8-5.6)
== END | disposition home or self-care (01) ==
LOC: LAB 07:53
PROVIDERS: PCP Family Medicine; Visit Provider Obstetrics & Gynecology
DX: E66.9 Obesity, unspecified (principal)
CPT/HCPCS: 36415; 80053; 80061; 82306; 83036; 83525; 85027

== ENCOUNTER → 2023-09-28 | Outpatient (CLI) | payer OTHER, SELFPAY ==
--- OUTSIDE RECORDS SUMMARY | 2023-09-28 07:42 | XMS RPT_ITS | CCD ---
Author Name Unknown Address [address] [place] [address] Organization [facility] Care Team Providers Care Warehouse Lead Name Role Phone Jeannette Wilson LPN Unavailable Unavailab Laurie Miller LPN Unavailable Jeannette Wilson LPN Unavailable Unavailab Chemo Arreguin Unavailable Christos CUEVAS, Mary Primary Care Provider Christos CUEVAS, Mary Primary Care Provider Christos CUEVAS, Mary Primary Care Provider Jorge Luis Nunez MD [facility] Primary Care Unavailable NEANAT DEEDEE ZELDA Attending Unavail able [facility] Primary Care Unavailable NESO MARK ZELDA Attending Unavail able [facility], MARY Primary Care Unavailable NEYCAYETANO MARK ZELDA Attending Unavail able [facility], [facility] Primary Care Unavailable NEYCAYETANO MARK ZELDA Attending Unavail able [facility] Primary Care Unavailable NEZELDA MOHAMUD Attending Unavail able Allergies Allergy Classification Reported Allergen(s) Allergy Type Date of Onset Reaction(s) Facility (12 sources) Latex; Translations: [LATEX] drug allergy 7 [facility] Work Phone: (8 sources) Sulfonamides (Antibiotic); Translations: [SULFA (SULFONAMIDE ANTIBIOTICS)] Drug Allergy 3 Other: See Comments [facility] Medications Current Medications Medication Drug Class(es) Dates Sig (Normalized) Sig (Original) acyclovir 400 mg oral tablet (1 source) Herpesvirus Nucleoside Analog DNA Polymerase Inhibitor, Herpes Simplex Virus Nucleoside Analog DNA Polymerase Inhibitor, Herpes Zoster Virus Nucleoside Analog DNA Polymerase Inhibitor Start: 12-25-2021 End: 01-04-2022 take 1 tablet by mouth twice daily acyclovir (ZOVIRAX) 400 mg tablet Take 1 tablet by mouth twice daily for 10 days. 20 tablet 0 12/25/2021 01/04/2022 Active Completed/Discontinued Medications Medication Drug Class(es) Dates Sig (Normalized) Sig (Original) amoxicillin 500 mg oral tablet (2 sources) Penicillin-class Antibacterial Start: 03-31-2017 End: 04-10-2017 AMOXICILLIN 500 MG TABS Take one tab every 12 hours AMOXICILLIN [id number] Chemo TERESA estradiol 0.01 mg vaginal insert (6 sources) Estrogen Start: 07-09-2021 End: 01-30-2023 Estradiol (YUVAFEM) 10 mcg vaginal tablet Use 1 tablet vaginally two times a week. 8 tablet 12 07/09/2021 01/30/2023 Discontinued Problems Active Problems Problem Classification Problem Date Documented Da te Episodic/Chronic Diabetes mellitus without complication (5 sources) Hyperglycemia; Translations: [Impaired fasting glucose] Onset: 02-27-2023 04-03-2023 Episodic Genitourinary symptoms and ill-defined conditions (1 source) Dysuria; Translations: [Dysuria] 05-18-2023 Episodic Other nutritional; endocrine; and metabolic disorders (8 sources) Obesity; Translations: [Obesity, unspecified] 09-16-2021 Chronic Other nutritional; endocrine; and metabolic disorders (7 sources) Body mass index 40+ - severely obese; Translations: [Body mass index (BMI) 40.0-44.9, adult] Onset: 06-09-2016 06-09-2016 Chronic Other nutritional; endocrine; and metabolic disorders (3 sources) Severe obesity; Translations: [Morbid (severe) obesity due to excess calories] 04-03-2023 Chronic Other nutritional; endocrine; and metabolic disorders (2 sources) Morbid (severe) obesity due to excess calories; Translations: [Class 2 severe obesity with serious comorbidity and body mass index (BMI) of 35.0 to 35.9 in adult, unspecified obesity type (HCC)] Onset: 09-16-2021 Chronic Other nutritional; endocrine; and metabolic disorders (3 sources) Body mass index (BMI) 35.0-35.9, adult; Translations: [Class 2 severe obesity with serious comorbidity and body mass index (BMI) of 35.0 to 35.9 in adult, unspecified obesity type (HCC)] Onset: 09-16-2021 Chronic Other nutritional; endocrine; and metabolic disorders (1 source) Obesity, unspecified; Translations: [Class 2 obesity with body mass index (BMI) of 35.0 to 35.9 in adult, unspecified obesity type, unspecified whether serious comorbidity present] Onset: 09-16-2021 Chronic Other screening for suspected conditions (not mental disorders or infectious disease) (7 sources) Mammography abnormal; Translations: [Other abnormal and inconclusive findings on diagnostic imaging of breast] 07-14-2014 Episodic Residual codes; unclassified (2 sources) Poor sleep pattern; Translations: [Other sleep disorders] 04-03-2023 Chronic Residual codes; unclassified (1 source) Other sleep disorders; Translations: [Poor sleep pattern] Onset: 09-08-2023 Chronic Residual codes; unclassified (1 source) Inadequate sleep hygiene; Translations: [Inadequate sleep hygiene] 09-08-2023 Episodic Residual codes; unclassified (1 source) Not getting enough sleep; Translations: [Sleep deprivation] 09-08-2023 Episodic Residual codes; unclassified (1 source) Inadequate sleep hygiene; Translations: [Poor sleep hygiene] Onset: 09-08-2023 Episodic Past or Other Problems Problem Classification Problem Date Documented Da te Episodic/Chronic Abdominal pain (7 sources) Right lower quadrant pain; Translations: [Right lower quadrant pain] Onset: 11-16-2007 11-16-2007 Episodic Administrative/social admission (2 sources) Patient encounter status; Translations: [Persons encountering health services in other specified circumstances] Onset: 01-30-2023 Episodic Biliary tract disease (7 sources) Disorder of gallbladder; Translations: [Other specified diseases of gallbladder] Onset: 04-10-2008 04-10-2008 Episodic Deficiency and other anemia (7 sources) Iron deficiency anemia; Translations: [Iron deficiency anemia, unspecified] Onset: 03-10-2014 09-16-2021 Episodic Other upper respiratory infections (4 sources) Acute pharyngitis; Translations: [Acute pharyngitis, unspecified] Onset: 03-27-2017 03-27-2017 Episodic Results Test Name Value Interpretation Reference Range Facil ity Vital Signs Date Time Vital Sign Value Performing Clinician Faci lity 09-08-2023 09:01-0500 Body weight 90.27 kg Zelda Mark MD Work Phone: [facility] 09-08-2023 09:01-0500 Diastolic blood pressure 72 mm[Hg] Zelda Mark MD Work Phone: [facility] 09-08-2023 09:01-0500 Heart rate 86 /min Zelda Mark MD Work Phone: [facility] 09-08-2023 09:01-0500 SaO2% (BldA) [Mass fraction] 99 % Zeldalyssa Mark MD Work Phone: [facility] 09-08-2023 09:01-0500 Systolic blood pressure 114 mm[Hg] Zelda Mark MD Work Phone: [facility] 04-03-2023 09:00-0400 Body weight 93.89 kg Zelda Mark MD Work Phone: [facility] 04-03-2023 09:00-0400 Diastolic blood pressure 72 mm[Hg] Zelda Mark MD Work Phone: [facility] 04-03-2023 09:00-0400 Heart rate 94 /min Zelda Mark MD Work Phone: [facility] 04-03-2023 09:00-0400 SaO2% (BldA) [Mass fraction] 98 % Zeldalyssa Mark MD Work Phone: [facility] 04-03-2023 09:00-0400 Systolic blood pressure 128 mm[Hg] Zelda Mark MD Work Phone: [facility] 01-30-2023 10:18-0400 Body height 165.1 cm Zelda Mark MD Work Phone: [facility] 01-30-2023 10:18-0400 Body weight 95.48 kg Zelda Mark MD Work Phone: [facility] 01-30-2023 10:18-0400 Diastolic blood pressure 78 mm[Hg] Zelda Mark MD Work Phone: [facility] 01-30-2023 10:18-0400 Heart rate 64 /min Zelda Mark MD Work Phone: [facility] 01-30-2023 10:18-0400 SaO2% (BldA) [Mass fraction] 99 % Zelda Mark MD Work Phone: [facility] 01-30-2023 10:18-0400 Systolic blood pressure 126 mm[Hg] Zelda Mark MD Work Phone: [facility] 03-27-2017 16:33-0400 BMI (Body Mass Index) 41.76 kg/m2 Laurie Magallon LPN [facility] Work Phone: 03-27-2017 16:33-0400 Body Temperature 98.6 [degF] Laurie Naun BASTING CLEANER [facility] Work Phone: 03-27-2017 16:33-0400 BP Diastolic 96 mm[Hg] Laurie Naun BASTING CLEANER [facility] Work Phone: 03-27-2017 16:33-0400 BP Systolic 138 mm[Hg] Laurie Naun BASTING CLEANER [facility] Work Phone: 03-27-2017 16:33-0400 Height 165.1 cm Laurieeladia Magallon LPN [facility] Work Phone: 03-27-2017 16:33-0400 Pulse (Heart Rate) 100 /min Laurie Magallon LPN [facility] Work Phone: 03-27-2017 16:33-0400 Respiratory Rate 16 /min Laurie Magallon LPN [facility] Work Phone: 03-27-2017 16:33-0400 Weight 113.85 kg Laurie Magallon LPN [facility] Work Phone: Encounters Encounter Date Encounter Type Care Provider Facility Start: 09-08-2023 End: 09-08-2023 ambulatory [facility] Facility:[facility] Start: 09-08-2023 End: 09-08-2023 Patient encounter procedure Zelda Mark MD Work Phone: OB/Gynecology Procedures Date Procedure Procedure Detail Performing Clinician Start: 07-19-2021 Mammography Ashlie king WORK ORDER CLERK.CNM Work Phone: Start: 03-27-2017 End: 03-27-2017 Rapid strep test Chemo TERESA Work Phone: Start: 06-09-2016 Adult depression scr eening assessment Ashlie Harris WORK ORDER CLERK.CNM Work Phone: Start: 03-20-2016 Lipid 1996 panel - S bhavana or Plasma Zelda Mark MD Work Phone: Plan of Treatment Date Care Activity Detail Author Start: 12-04-2024 Urine microalbumin profile DTaP,Tdap,Td Vaccine (2 - Td or Tdap) [facility] Start: 05-22-2023 Covid-19 Vaccine ( season) Covid-19 Vaccine ( season) [facility] Start: 05-22-2023 Influenza vaccination [facility] Start: 09-21-2022 DEPRESSION ASSESSMENT DEPRESSION ASSESSMENT [facility] Start: 07-19-2022 Mammography MAMMOGRAM [facility] Start: 07-19-2022 Screening for malignant neoplasm of breast Mammogram Screening [facility] Start: 05-22-2022 Influenza vaccination INFLUENZA (Season Ended) [facility] Start: 09-27-2021 COVID-19 VACCINE (4 - Booster for Moderna series) COVID-19 VACCINE (4 - Booster for Moderna series) [facility] Start: 09-27-2021 COVID-19 VACCINE (4 - Moderna series) COVID-19 VACCINE (4 - Moderna series) [facility] Start: 2021 SHINGRIX VACCINE (1 of 2) SHINGRIX VACCINE (1 of 2) [facility] Start: 03-23-2021 COVID-19 VACCINE (3 - Booster for Moderna series) COVID-19 VACCINE (3 - Booster for Moderna series) [facility] Start: 03-20-2021 Lipid panel Lipid Screening [facility] Start: 03-20-2021 LIPID SCREEN LIPID SCREEN [facility] Start: 12-19-2020 COVID-19 VACCINE (3 - Booster for Moderna series) COVID-19 VACCINE (3 - Booster for Moderna series) [facility] Start: 05-30-2019 HPV TESTING HPV TESTING [facility] Start: 05-30-2019 PAP TESTING PAP TESTING [facility] Start: 05-30-2019 Screening for malignant neoplasm of cervix [facility] Start: 03-20-2019 DIABETES SCREEN DIABETES SCREEN [facility] Start: 03-20-2019 Diabetes Screening Diabetes Screening [facility] Start: 06-09-2017 Adult depression screening assessment DEPRESSION SCREENING [facility] Start: 03-27-2017 End: 03-27-2017 Appointment Appointment [facility] Work Phone: Start: 03-27-2017 End: 03-27-2017 Streptococcus.beta-hemoly tic [Presence] in Throat by Organism specific culture *Culture, R/O Strep A Swab [facility] Work Phone: Start: 2016 COLOGUARD (FIT-DNA) COLOGUARD (FIT-DNA) [facility] Start: 2016 Colonoscopy COLONOSCOPY [facility] Start: 2016 COLORECTAL CANCER SCREENING COLORECTAL CANCER SCREENING [facility] Start: [address] COLONOGRAPHY [facility] Start: 2016 FECAL OCCULT BLOOD FECAL OCCULT BLOOD [facility] Start: 2016 Screening for malignant neoplasm of colon [facility] Start: 2016 SIGMOIDOSCOPY SIGMOIDOSCOPY [facility] Start: 11-26-2007 Urine microalbumin profile DTAP,TDAP,TD (1 - Tdap) [facility] Start: 1989 HEPATITIS C SCREENING HEPATITIS C SCREENING [facility] Start: 1989 Hepatitis C screening Hepatitis C Screening [facility] Start: 1989 HIV SCREENING HIV SCREENING [facility] Start: 1989 HIV screening HIV Screening [facility] Start: 1971 HEPATITIS B (1 of 3 - 3-dose series) HEPATITIS B (1 of 3 - 3-dose series) [facility] Start: 1971 Hepatitis B Vaccine (1 of 3 - 3-dose series) Hepatitis B Vaccine (1 of 3 - 3-dose series) [facility] Patient Education PHARYNGITIS [facility] Work Phone: [facility] Immunizations Immunization Date Immunization Notes Care Provider Margaux cole 11-25-2007 tetanus and diphther ia toxoids, adsorbed, preservative free, for adult use (2 Lf of tetanus toxoid and 2 Lf of diphtheria toxoid) Ashlie Harris WORK ORDER CLERK.CN Work Phone: [facility] Work Phone: Payers Date Payer Category Payer Private Health Insurance [facility]izzieNA [facility] [employer] [id number] 2022-Present [phone] [address] [place] [address] PPO [id number] 2022 Private Health Insurance [id number] 2020 Unknown MMO MMO [employer] [id number] 2020-Present [address] [place] [address] PPO [id number] 2020 Unknown MMO MMO [employer] [id number] 2020-Present [address] [place] [address] PPO [id number] Social History Date Type Detail Facility Start: 05-30-2014 End: 01-30-2023 Tobacco smoking status NHIS Never smoked tobacco [facility] Work Phone: Start: 06-25-2021 End: 09-08-2023 Alcohol intake Current drinker of alcohol (finding) [facility] Start: 1970 Sex Assigned At Not on file [facility] Start: 05-30-2014 End: 01-30-2023 Tobacco use and exposure Smokeless tobacco non-user [facility] Start: 01-30-2023 End: 04-03-2023 History of Social function [facility] Start: 01-30-2023 End: 04-03-2023 Tobacco use panel [facility] National Score (1-100), lower number is lower risk 68 [facility] Clinical Notes 09-02-2021 to 09-08-2023 Patient InstructionsZelda Echevarria MD - 09/08/2023 9:20 AM ESTTelephone Encounter - Irlanda Vora MD - 05/18/2023 8:53 AM EDTPatient InstructionsPatient Instructions Note Date & Type Note Facility 09-08-2023 Instructions Zelda Echevarria MD - 09/08/2023 11:33 AM EST Educational Podcasts: The Dr. Bansal Show- Real Conversations about Health and Weight * June 08, 2023 what you need to know about Carbohydrates and Weight *May 18, 2023 Protein why we need it and how to eat more Protein *April 27, 2023 Menopause and Weight Gain- All the Details with Dr. Ghazal Bright *April 06, 2023 The Science Behind Ultra Processed Food and Weight Gain *January 19, 2023 Effects of sleep and Stress of Weight and Health with Dr. Nisreen Oshea-DO Yelena * January 12, 2023 Recognizing and Resolving Emotional Eating with Dr. Adam Obesity: A Disease *January 12, 2023 Episode 80 Clinical conversations: The Role of Physical Activity in Weight Management * April 24, 2023 Episode 84 Clinical Conversations: NAFLD, The [place] Disease of Metabolic Syndrome *April 232019 Episode 20 Article Reviews: The Role Ultra Processed Diets Play in Weight Gain *April 04, 2020 Episode 21 Clinical Conversations: Breaking Weight Plateaus MENOPAUSE AND WEIGHT GAIN Menopause and weight -- In females, weight gain and increased central fat distribution often occur in the early postmenopausal years [33]. The magnitude of the increase depends upon the method of measurement [30]. The increase in fat mass with preferential accumulation of visceral fat is felt to be due to reductions in energy expenditure in menopause [34]. The increased levels of follicle-stimulating hormone (FSH) that occur with menopause may be involved in this weight gain independent of the fall in estrogen [35]. (See Clinical manifestations and diagnosis of menopause , section on 'Long-term consequences of estrogen deficiency'.) In the Study of Women's Health Across the Nation (SWAN) including almost 550 females aged 42 to 52 at baseline, weight, waist circumference, and fat mass (measured with bioelectrical impedance) were followed for six years [36]. Over the study period, there was an average 2.9 kg weight gain, 3.4 kg increase in fat mass, and a 5.7 cm increase in waist circumference. Among study subjects, the rate of waist circumference increase slowed one year after the final menstrual period, whereas fat mass continued to increase without change. However, estrogen therapy does not prevent weight gain in postmenopausal females, although it may minimize fat redistribution [37,38]. In a three-year trial including over 800 participants from the Women's Health Initiative (WHI), those who received estrogen and progesterone therapy lost less lean muscle mass (-0.04 versus -0.44 kg) and had less change in fat distribution compared with those receiving placebo [37]. However, the effects were small and the clinical benefits unclear. In a metanalysis including 28 randomized trials and over 28,000 participants, the use of post-menopausal estrogen alone or combination estrogen and progesterone was not associated with a change in body weight [39]. (See Menopausal hormone therapy: Benefits and risks , section on 'Weight'.) CONDITIONS ASSOCIATED WITH WEIGHT GAIN Hypothyroidism -- Patients with overt clinical hypothyroidism often gain weight, with some of the weight due to increased adiposity. The weight gain, however, is usually modest. Increasing serum thyroid-stimulating hormone (TSH) concentrations within the normal range have also been associated with a modest increase in body weight in adults [76,77], but treatment of subclinical hypothyroidism does not appear to be associated with weight loss. Observational data suggest that obesity may predispose to hypothyroidism, raising questions about causality [78]. Hypothyroidism and weight is reviewed in detail elsewhere. (See Subclinical hypothyroidism in non adults , section on 'Potential consequences' and Clinical manifestations of hypothyroidism , section on 'Clinical manifestations'.) Alma's syndrome -- A common feature in patients with Alma s syndrome is progressive central adiposity involving the trunk, abdomen, mesentery, and mediastinum. There is usually accumulation of fat tissue in the face and neck, with enlarged dorso- and supraclavicular fat pads. The extremities are usually spared and often exhibit muscular wasting. The excess of glucocorticoids in Bina s syndrome (iatrogenic or endogenous) induces 32-ajbp-hhxvgtlulhbonv dehydrogenase type 1 in visceral fat, enhancing its lipogenic capacity [79]. (See Epidemiology and clinical manifestations of Alma syndrome .) Hypothalamic obesity -- Hypothalamic obesity is a rare syndrome in humans that can be reproduced in animals by injury to the ventromedial or paraventricular region of the hypothalamus or the amygdala [80]. These regions of the brain are responsible for integrating metabolic information regarding nutrient stores with afferent sensory information about food availability. When the ventromedial hypothalamus is damaged, hyperphagia develops, energy expenditure decreases [81], and obesity follows. This syndrome can be caused by a tumor (most commonly craniopharyngioma) [82] (see Craniopharyngioma ), trauma, irradiation, surgery in the posterior fossa, or increased intracranial pressure [83]. In addition to weight gain, additional symptoms may include headache, vomiting, and/or visual changes; amenorrhea, erectile dysfunction, arginine vasopressin deficiency (previously called central diabetes insipidus), hypothyroidism, and/or adrenal insufficiency; seizures, somnolence, coma, and/or disordered temperature regulation [84]. In a report of 42 adults with tumors in the hypothalamic region (treated with surgery and/or radiotherapy), 52 percent of patients had obesity after a median of five years of follow-up (versus 24 percent at baseline) [85]. In a multivariate analysis, no correlation was found between tumor location or size and subsequent weight gain. Bariatric surgery has been found to produce moderate weight loss in patients with hypothalamic obesity, although the amount of weight lost may be less than what is seen in patients with typical obesity [86,87]. Growth hormone deficiency -- Growth hormone deficiency in adults is associated with an increase in abdominal and visceral fat. (See Growth hormone deficiency in adults .) OTHER POSSIBLE CONTRIBUTORS TO OBESITY The gut microbiome -- The composition of the gut atif, or the gut microbiome, may be a contributor to obesity. Since the observation that germ-free mice weigh less than mice with a normal gut microbiome [88], there have been a large number of studies demonstrating an association between the proportion of Bacteroidetes and Firmicutes bacteria in the gut and the development of obesity. It is less clear, however, that the relationship is causal [89]. The role of the gut microbiome in weight and obesity is reviewed in detail elsewhere. (See Obesity: Genetic contribution and pathophysiology , section on 'Gut microbiome'.) Exposure to endocrine-disrupting chemicals -- Endocrine-disrupting chemicals are compounds that are used in the production of a wide range of commercial products. They have been found in environmental water samples and the food supply and can accumulate in human tissues. A growing number of studies have linked exposure to these compounds to both childhood and adult obesity [90]. Based on observational studies, bisphenol A and perfluorinated chemicals may be the most strongly associated [91]. HOW DOES CHRONIC STRESS AFFECT EATING PATTERNS? Chronic stress can affect the body s use of calories and nutrients in various ways. It raises the body s metabolic needs and increases the use and excretion of many nutrients. If one does not eat a nutritious diet, a deficiency may occur.Stress also creates a chain reaction of behaviors that can negatively affect eating habits, leading to other health problems down the road. Stress places a greater demand on the body for oxygen, energy, and nutrients. Yet people who experience chronic stress may crave comforting foods such as highly processed snacks or sweets, which can be high in unhealthy fats, sugar, and calories but low in micronutrients. People feeling stress may lack the time or motivation to prepare nutritious, balanced meals, or may skip or forget to eat meals. Stress can disrupt sleep by causing slubber tender sleep or more frequent awakenings, which leads to fatigue during the day. In order to cope with daytime fatigue, people may use stimulants to increase energy such as with caffeine or high-calorie snack foods. The reverse may also be true that poor-quality sleep is itself a stressor. Studies have found that sleep restriction causes a significant increase in cortisol levels. During acute stress, adrenaline suppresses the appetite.But with chronic stress, elevated levels of cortisol may cause cravings, particularly for foods high in sugar, fat, and calories, which may then lead to weight gain. Cortisol favors the accumulation of fat in the belly area, also called central adiposity, which is associated with insulin resistance and an increased risk of type 2 diabetes, cardiovascular disease, and certain breast cancers.4,6-8 It also lowers levels of the hormone leptin (that promotes satiety) while increasing the hormone ghrelin (that increases appetite). [email or web address] [email or web address] Disrupted Sleep Linked to Weight Gain - YouTube How To Improve Your Sleep To Impact Your Weight Loss: [email or web address] Weight Loss and Sleep Updated June 29, 2020 Written by Reji Morales Medically Reviewed by Anne-Marie Harden In This Article The Connection Between Sleep and Weight Sleep and Obesity Sleep During Weight Loss Maintaining a Healthy Relationship With Your Body Losing weight is challenging, and keeping weight off can be just as difficult. Although the medical community is still untangling the complicated relationship between sleep and body weight, several potential links have emerged that highlight the potential weight loss benefits of getting a good night s rest and the negative health impacts of sleep deprivation. The Connection Between Sleep and Weight Over the past several decades, the amount of time that Americans spend sleeping has steadily decreased1, as has the self-reported quality of that sleep. For much of the same time period, the average body mass index (BMI) of Americans increased2, reflecting a trend toward higher body weights and elevated rates of obesity. In response to these trends, many researchers began to hypothesize about potential connections between weight and sleep. Numerous studies have suggested that restricted sleep and poor sleep quality may lead to metabolic disorders, weight gain, and an increased risk of obesity and other chronic health conditions. While there is continuing debate within the medical community about the exact nature of this relationship, the existing research points to a positive correlation between good sleep and healthy body weight. There remains much to be discovered about the intricate details of how sleep and weight are connected. Several hypotheses offer paths for additional research with the hope that increasing our understanding of the relationship between weight and sleep will lead to reduced obesity and better weight-loss methods. Can Lack of Sleep Increase Appetite? One common hypothesis about the connection between weight and sleep involves how sleep affects appetite. While we often think of appetite as simply a matter of stomach grumbling, it s actually controlled by neurotransmitters, which are chemical messengers that allow neurons (nerve cells) to communicate with one another. The neurotransmitters ghrelin and leptin are thought to be central to appetite. Ghrelin promotes hunger, and leptin contributes to feeling full. The body naturally increases and decreases the levels of these neurotransmitters throughout the day, signaling the need to consume calories3. A lack of sleep may affect the body s regulation of these neurotransmitters. In one study, men who got 4 hours of sleep had increased ghrelin and decreased leptin compared to those who got 10 hours of sleep. This dysregulation of ghrelin and leptin may lead to increased appetite and diminished feelings of fullness in people who are sleep deprived. In addition, several studies have also indicated that sleep deprivation affects food preferences. Sleep-deprived individuals tend to choose foods that are high in calories and carbohydrates4. Other hypotheses regarding the connection between sleep and increased appetite involve the body s endocannabinoid system5 and orexin6, a neurotransmitter targeted by some sleep aids. Many researchers believe that the connection between sleep and dysregulation of neurotransmitters is complicated and additional studies are needed to further understand the neurobiological relationship. Does Sleep Increase Metabolism? Metabolism7 is a chemical process in which the body converts what we eat and drink into energy needed to survive. All of our collective activities, from breathing to exercising and everything in between, is part of metabolism. While activities like exercise can temporarily increase metabolism, sleep cannot8. Metabolism actually slows about 15% during sleep, reaching its lowest level in the morning 9. In fact, many studies have shown that sleep deprivation (whether due to self-induction, insomnia, untreated sleep apnea, or other sleep disorders) commonly leads to metabolic [id number]. Poor sleep is associated with increased oxidative stress, glucose (blood sugar) intolerance (a precursor to diabetes), and insulin resistance. Extra time spent awake may increase the opportunities to eat11, and sleeping less may disrupt circadian rhythms, leading to weight gain12. How is Sleep Related to Physical Activity? Losing sleep can result in having less energy for exercise and physical activity. Feeling tired can also make sports and exercising less safe, especially activities like weightlifting and or those requiring balance. While researchers are still working to understand this nrgfztefnd84, it s well known that exercise is essential to maintaining weight loss and overall health. Getting regular exercise can improve sleep quality, especially if that exercise involves natural light. While even taking a short walk during the day may help improve sleep, more activity can have a more dramatic impact. Engaging in at least 150 minutes of moderate-intensity or 75 minutes of high-intensity exercise per week can improve daytime concentration and decrease daytime [id number]. Sleep and Obesity In children and adolescents, the link between not getting enough sleep and an increased risk of obesity is well-established, although the reason for this link is still being debated. Insufficient sleep in children can lead to metabolic irregularities as discussed earlier, skipping breakfast in the mornings, and increased intake of sweet, salty, fatty, and starchy foods15. In adults, the research is less clear. While a large analysis of past studies suggests that people getting less than 6 hours of sleep at night are more likely to be diagnosed as obese16, it s challenging for these studies to determine cause and effect. Obesity itself can increase the risk of developing conditions that interfere with sleep, like sleep apnea and depression. It s not clear if getting less sleep is the cause of obesity in these studies, if obesity is causing the participants to get less sleep, or perhaps a mix of both. Even though more studies are needed to understand this connection, experts encourage improving sleep quality when treating obesity in adults. Sleep During Weight Loss Getting adequate, quality sleep is an important part of a healthy weight loss plan. Most importantly, research has shown that losing sleep while dieting can reduce the amount of weight lost17 and encourage htefujjlrj78. Tips for Quality Sleep During Weight Loss There are many ways to improve sleep. Here are a few research-based tips for sleeping better when you re trying to lose weight: Keep a regular sleep schedule: Big swings in your sleep schedule or trying to catch up on sleep after a week of late nights can cause changes in metabolism and reduce insulin igfepwmbfzn05, making it easier for blood sugar to be elevated. Sleep in a dark room: Exposure to artificial light while sleeping, such as a TV or bedside lamp, is associated with an increased risk of weight gain and swvfxex58. Don t eat right before bed: Eating late may reduce the success of weight loss tdydyutw64 Reduce Stress: Chronic stress may lead to poor sleep and weight gain in several ways, including eating to cope with negative paaxjtpw81 Be an Early Bird: People with late bedtimes may consume more calories and be at a higher risk for weight gain23. Early birds may be more likely to maintain weight loss when compared to night owls24. Maintaining a Healthy Relationship With Your Body Deciding if you should attempt to change your body weight is a personal decision best made with the guidance of your doctor. Don t take all the health and weight loss information you read mriuuj54 at face value. Weight loss isn t appropriate for everyone and doesn t always mean better health. Remember that health is a lifelong journey that includes not only healthy habits but also having a healthy relationship with your body. If you re considering weight loss, the National Institutes of Health offers a helpful resource for choosing a safe weight loss fnlidvj66kPofoipx Source National [employer] of Diabetes and Digestive and Kidney DiseasesNIDDK research creates knowledge about and treatments for diseases that are among the most chronic, costly, and consequential for patients, their families, and the Nation. niddk.nih.gov . https://www.sleepfoundation.org/ph ysical-health/bcvdmu-tocs-drj-slee p Why People Diet, Lose Weight and Gain It All Back Plus 4 ways to break the cycle + maintain your weight loss You -- and your diet -- have been firing on all cylinders. The weight is melting off, and you re feeling your best. But then there is that seemingly inevitable backslide, with pound after pound creeping back on despite your best efforts. It s the ultimate Catch-22. But before you beat yourself up, heating worker and obesity specialist Randy Antonio MD, has some welcome news: It s most likely not your fault. Your body is fighting to keep your weight as it was before the dieting, he says. But take heart -- it s possible to win the rhodes. What weight set point has to do with it Experts think as many as 80 to 95% of dieters gain back the weight they ve worked so hard to lose. Why? (WHY?!?) Dr. Antonio says the culprit is your weight set point : the weight your body is programmed to be. Your weight set point is a combination of several factors, including your: Genetics. Hormones. Behavior. Environment. Weight set point and metabolism play for the same team: Your metabolism connolly energy at a rate that will maintain your weight set point, even if that point is heavier than is healthy. Most of the time, weight gain is gradual, and that can raise your set point gradually, too, notes Dr. Antonio. But certain lifestyle changes can lower it. The perils of yo-yo dieting Beware of the quick-fix, Dr. Antonio warns. A fad diet won t change your set point. It s just restricting calories, he says. Your body is very efficient. You can successfully lose weight for a while, but at some point, your body simply adjusts to need fewer calories to function. Which means weight loss will eventually stop, unless you start eating even less than your diet calls for. (You can see where this is going.) Your body is also a survivor. As soon as calories drop, it starts doing everything in its power to prevent starvation, including: Ups the hunger hormone: Levels of the satiety hormone leptin (which controls how full you feel) decrease. Meanwhile, levels of the hunger hormone ghrelin increase. You feel hungrier, even after eating a normal meal. Makes you think, Oooh that looks good : Eating fewer calories alters how you think about and perceive food. Research shows dieters become hyper-focused on food and that it even smells and tastes better to them. These effects stick around for the long-term. Remember the television show The Biggest Loser? Contestants still felt the effects of their calorie deprivation six years later, making it harder to keep the weight off. Research tells us that yo-yo dieting can negatively affect your metabolism, Dr. Antonio says. It doesn t matter the diet: low-carb, low-fat, ketogenic, whatever. We see rebound weight gain almost every time. How to lose weight without gaining it back To maintain weight loss for good, Dr. Antonio advises focusing on these four areas: Diet. How can you create a healthy, long-term, mzifx-nbhy-gt diet? Learn what s healthy -- and what s not. (A acute care nurse or dietitian can help.) Practice portion control, even when eating healthy foods. Avoid empty calories, but treat yourself once in a while. Don t diet. Instead, focus on forming healthy habits for life. Exercise. Be an equal opportunity security advisor: Do both aerobic exercise (three to five times a week) and resistance training (two to three times nonconsecutively each week). Shoot for at least 25 to 35 minutes on most days. Exercise works best for staving off weight gain (not jumpstarting weight loss), so recognize that binging on exercise can be just as bad as binging on food. Exercise can make people super hungry, while it makes others tired and inactive, which can negate the activity they did, Dr. Antonio explains. But it s also important to remember the cardiovascular benefits of exercise, independent of weight loss. Exercise is always good and important, he says. Stress. Stress not only causes some people to eat more, but it also raises levels of the stress hormone cortisol. If you have more cortisol, you end up with higher insulin and lower blood sugar levels, Dr. Antonio says. (Cue the cravings.) To cope, put down the fork and try meditating or talking to a trusted friend. Sleep. Not getting enough sleep raises cortisol levels, too. It also affects decision-making (read: your ability to stick to healthy habits). Seven to nine hours every night is the magic number you need to help you manage stress. It also helps your body work with you -- and not against you -- when it comes to weight loss. https://health.[email or web address] /ags-eilxtp-swxp-sdey-kwvgme-jsc-g lwi-pq-zad-back/ Why People Diet, Lose Weight and Gain It All Back - [facility] Sleep Hygiene Tips Set a sleep schedule and stick to it. Try to go to bed at night and awaken in the morning around the same times, even on weekends. This helps to regulate the body s sleep cycles and circadian rhythms. Try to exercise at some point in the day but avoid vigorous activity (running, fast dancing, high-intensity interval training) one hour before bedtime. Regular exercise of adequate intensity can promote muscle relaxation and deeper sleep later on. If you re in the habit of napping during the day, aim for a 10-20 minute power nap to achieve the goals of reduced fatigue and increased alertness. It s best to take naps in the early afternoon to avoid interference with nighttime sleep. Try to avoid large meals, heavy snacking,or alcohol 2-3 hours before bed. If you are sensitive to caffeine, try to avoid drinking caffeinated beverages 4-6 hours before bedtime. Stop using electronic devices an hour before bed, especially those emitting blue light such as smartphones, tablets, and televisions. Schedule before-bed activities to signal that you are winding down, such as changing into pajamas and brushing teeth. Create a quiet, dark, relaxing environment in your bedroom. Dim the lights and turn off your cell phone s sound and vibration modes if possible. Ensure a comfortable temperature, as feeling too hot or cold can disrupt sleep. Create calming bedtime rituals such as practicing deep breathing exercises, doing light yoga stretches, or listening to soothing relaxing music. If you awaken and can t return to sleep, don t stay in bed. Get up and do quiet relaxing activities, such as reading, until you feel tired enough to fall back asleep. CBTi is cognitive behavioral therapy for insomnia. You work with a sleep psychologist using behavioral approaches that help you to change behaviors that may worsen insomnia and to learn new behaviors to promote sleep. Behavior therapy is commonly used to treat psychophysiological insomnia. Other techniques such as relaxation exercises, biofeedback, sleep restriction therapy, and reconditioning can be tried. Although these techniques require some effort and take time to work, they do provide a means of coping with insomnia that helps people return to more normal sleep patterns. Please call [phone] to make an appointment. documented in this encounter [facility] 09-08-2023 Note HNO ID: [id number] Author: Zelda Echevarria MD Service: ? Author Type: Physician Type: Progress Notes Filed: 09/08/2023 11:09 AM Note Text: Some documentation from previous visit of 06/08/23 was copied and pasted, documentation has been reviewed and edited as necessary for today's visit. Patient Summary: Stephanie is a 53 year old female who presents for follow-up evaluation of her obesity/weight management to treat and prevent relatedco-morbidities. In our previous visits we have discussed lifestyle intervention including a nutrition recommendations and physical activity optimization. Her last office visit was 3 months ago. Assessment/plan from last visit: -tracking food -high protein low carb - recommended exercise and resistance training- met - Continue Metformin- impaired fasting glucose -continue phentermine -topiramate 50mg am and 50mg pm - Poor sleep hygiene- Offered sleep specialist appt Interval History -takes unisom- 9pm - still only gets 4 hours of sleep. Stopped going to the gym every day bc divina blancas was so exhausted. Stressful time with medical problems. Falls alseep 11-12am up at 3am. Does feel stronger at the gym, clothes feel better Still tracking food. Breakfast- if not hungry doesn't eat. Has protein shakes if she gets hungry. Yogurt- Activia - has not loved swedish yogurt taste Chicken- breast (grilled or baked) , or cheese melted on it Dinner- If not hungry doesn't eat but if she does will eat cottage cheese, salad She feels the medication is helping to decrease appetite Exercise: decreased Stress: increased Sleep: stable - Last Wt 01/30/23 : 210 lb 8 oz (95.5 kg) 5% weight loss = 200 lbs, 10% weight loss = 190 lbs Weight loss since last vist: 1 lb 09/08/2023 199 Lbs 06/08/2023 200lbs Anti-Obesity Medications No Contraindication CrCl cannot be calculated (Patient's most recent lab result is older than the maximum 180 days allowed.). PAST MEDICAL HISTORY Diagnosis Date Abnormal mammogram right breast Obesity, unspecified Current Outpatient Medications Medication Sig Dispense Refill topiramate (TOPAMAX) 50 mg tablet Take 1 tablet by mouth twice daily. 60 tablet 2 metFORMIN ER (GLUCOPHAGE XR) 750 mg 24 hr tablet Take 2 tablets by mouth daily with dinner. Start with one tablet daily at dinner for 3-5 days, if tolerating well then take 2 tablets daily at dinner. 60 tablet 5 ranitidine (ZANTAC) 75 mg tablet Take 75 mg by mouth as needed. No current facility-administered medications for this visit. ROS Denies CP, palpitations, Paresthesia. Has some dry mouth. BP 114/72 Pulse 86 Wt 199 lb (90.3 kg) LMP 09/28/2017 (Exact Date) SpO2 99% BMI 33.12 kg/m? Physical Exam Waist- 42.5 --> 41.5 ---> 41 Assessment/Plan: Stephanie Jarvis is a 53 year old yo female with class 2 obesity who presented today for follow up for supervised weight lossto treat and prevent related co-morbidities. -CMP ordered to [facility] lab today -Continue metformin- Topiramate 50mg am 50mg pm, phentermine -consult to behavioral for sleep evaluation and GO TO SLEEP - Discussed not eating enough during the day - reviewed chronic stress and Impact on weight, discussed lack of sleep and impact on weight- reviewed increased cortisol levels. - recommend cutting back on gym- sleep more and move more during the day would likely have better impact. - whole foods, protein, eat 3 meals per day ok to supplement with protein shakes if not hungry >5% TBW loss in initial 3 months of phentermine use qualifying for long-term off label treatment of obesity (R73.01) Impaired fasting glucose (primary encounter diagnosis) (Z72.821) Poor sleep hygiene (G47.8) Poor sleep pattern (E66.01, Z68.35) Class 2 severe obesity with serious comorbidity and body mass index (BMI) of 35.0 to 35.9 in adult, unspecified obesity type (HCC) I spent a total of 35 minutes on the date of the service which included preparing to see the patient, [id number] patient care, completing clinical documentation, obtaining and/or reviewing separately obtained history, performing a medically appropriate examination, counseling and educating the patient/family/caregiver, and ordering medications, tests, or procedures. Follow up in 3months or prn Zelda Bo MD [facility] 09-08-2023 History of Present illness Narrative Images from the original note were not included. Some documentation from previous visit of 06/08/23 was copied and pasted, documentation has been reviewed and edited as necessary for today's visit. Patient Summary: Stephanie is a 53 year old female who presents for follow-up evaluation of her obesity/weight management to treat and prevent relatedco-morbidities. In our previous visits we have discussed lifestyle intervention including a nutrition recommendations and physical activity optimization. Her last office visit was 3 months ago. Assessment/plan from last visit: -tracking food -high protein low carb - recommended exercise and resistance training- met - Continue Metformin- impaired fasting glucose -continue phentermine -topiramate 50mg am and 50mg pm - Poor sleep hygiene- Offered sleep specialist appt Interval History -takes unisom- 9pm - still only gets 4 hours of sleep. Stopped going to the gym every day bc divina blancas was so exhausted. Stressful time with medical problems. Falls alseep 11-12am up at 3am. Does feel stronger at the gym, clothes feel better Still tracking food. Breakfast- if not hungry doesn't eat. Has protein shakes if she gets hungry. Yogurt- Activia - has not loved swedish yogurt taste Chicken- breast (grilled or baked) , or cheese melted on it Dinner- If not hungry doesn't eat but if she does will eat cottage cheese, salad She feels the medication is helping to decrease appetite Exercise: decreased Stress: increased Sleep: stable - Last Wt 01/30/23 : 210 lb 8 oz (95.5 kg) 5% weight loss = 200 lbs, 10% weight loss = 190 lbs Weight loss since last vist: 1 lb 09/08/2023 199 Lbs 06/08/2023 200lbs Anti-Obesity Medications No Contraindication CrCl cannot be calculated (Patient's most recent lab result is older than the maximum 180 days allowed.). PAST MEDICAL HISTORY Diagnosis Date Abnormal mammogram right breast Obesity, unspecified Current Outpatient Medications Medication Sig Dispense Refill topiramate (TOPAMAX) 50 mg tablet Take 1 tablet by mouth twice daily. 60 tablet 2 metFORMIN ER (GLUCOPHAGE XR) 750 mg 24 hr tablet Take 2 tablets by mouth daily with dinner. Start with one tablet daily at dinner for 3-5 days, if tolerating well then take 2 tablets daily at dinner. 60 tablet 5 ranitidine (ZANTAC) 75 mg tablet Take 75 mg by mouth as needed. No current facility-administered medications for this visit. ROS Denies CP, palpitations, Paresthesia. Has some dry mouth. BP 114/72 Pulse 86 Wt 199 lb (90.3 kg) LMP 09/28/2017 (Exact Date) SpO2 99% BMI 33.12 kg/m Physical Exam Waist- 42.5 --> 41.5 ---> 41 Assessment/Plan: Stephanie Jarvis is a 53 year old yo female with class 2 obesity who presented today for follow up for supervised weight lossto treat and prevent related co-morbidities. -CMP ordered to [facility] lab today -Continue metformin- Topiramate 50mg am 50mg pm, phentermine -consult to behavioral for sleep evaluation and GO TO SLEEP - Discussed not eating enough during the day - reviewed chronic stress and Impact on weight, discussed lack of sleep and impact on weight- reviewed increased cortisol levels. - recommend cutting back on gym- sleep more and move more during the day would likely have better impact. - whole foods, protein, eat 3 meals per day ok to supplement with protein shakes if not hungry >5% TBW loss in initial 3 months of phentermine use qualifying for long-term off label treatment of obesity (R73.01) Impaired fasting glucose (primary encounter diagnosis) (Z72.821) Poor sleep hygiene (G47.8) Poor sleep pattern (E66.01, Z68.35) Class 2 severe obesity with serious comorbidity and body mass index (BMI) of 35.0 to 35.9 in adult, unspecified obesity type (HCC) I spent a total of 35 minutes on the date of the service which included preparing to see the patient, [id number] patient care, completing clinical documentation, obtaining and/or reviewing separately obtained history, performing a medically appropriate examination, counseling and educating the patient/family/caregiver, and ordering medications, tests, or procedures. Follow up in 3months or prn Zelda Bo MD documented in this encounter [facility] 06-08-2023 Note HNO ID: [id number] Author: Zelda Echevarria MD Service: ? Author Type: Physician Type: Progress Notes Filed: 06/08/2023 1:01 PM Note Text: Some documentation from previous visit of 04/03/23 was copied and pasted, documentation has been reviewed and edited as necessary for today's visit. Patient Summary: Stephanie is a 53 year old female who presents for follow-up evaluation of her obesity/weight management to treat and prevent relatedco-morbidities. In our previous visits we have discussed lifestyle intervention including a nutrition recommendations and physical activity optimization. Her last office visit was 2 months ago. Assessment/plan from last visit: Assessment/Plan: Stephanie Jarvis is a 52 year old yo female with Class 1 obesity who presented today for follow up for supervised weight lossto treat and prevent related co-morbidities. She does feel that this medication is helping at this time. We reviewed that her stressors in life and her lack of sleep may be impacting her weight loss. We discussed intermittent fasting with more rigid times and doing on a daily basis. We discussed increasing her topiramate to 150 mg/day. Start with taking 100 mg in the evening before bed and 50 mg during the daytime. Adding METFORMIN 500mg x 3-5 days then increase if no SE. patient or stands that this is off label use for weight loss. We discussed the common side effects of this medication. She has no contraindication to start. We discussed meditation and sleep routine. Discussed other ways to decrease her stressors. We talked through a lot of the emotional /stress concerns today. Progress log for carbohydrate and protein intake as well as exercise and medication management was given to the patient today goal is to be under 60 g of carbs per day She does understand that in order to maintain using phentermine she does need to lose 7 pounds this next month on the phentermine. In order to achieve a 5% weight loss from starting the phentermine. (R73.01) Elevated fasting glucose (primary encounter diagnosis) Comment: Plan: continue with low carbohydrate diet, high protein and routine exercise- START METFORMIN (E66.01, Z68.35) Class 2 severe obesity with serious comorbidity and body mass index (BMI) of 35.0 to 35.9 in adult, unspecified obesity type (HCC) Comment: Plan: Phentermine HCl 37.5 mg tablet And topiramate- off label use will increase to 100mg at night and 50mg in day. (G47.8) Poor sleep pattern Comment: Plan: meditation and other sleep hygiene option reviewed. Interval History Patient reports is doing very well since her last visit. She reports that the medication is helping to curb her appetite decrease her snacking and her cravings. She states that she has been doing very good getting her protein intake. She states she is using protein shakes at least once if not twice per day. She is sticking to a lower carbohydrate higher protein diet. She states she is going to the gym almost daily. She states she is doing resistance training multiple times per week lifting heavy weights. She is also getting some cardio exercises as well. Patient reports she is still not sleeping well. She states that she goes to bed late and gets up between 1 to 3 AM. She states that she gets up for the gym at approximately 3 AM every day. She states that she was sick recently and did sleep for 7 hours. She states that her body normally functions on low sleep. Patient reports she is really proud of herself after going to the [facility] fair did not eat any food. She has not had any significant cravings. She states that she is doing well with her water intake the only other thing that she is drinking at times would be lemonade that is 0 sugar. Exercise: increased Stress: stable Sleep: stable Weight loss since last vist: 7 lbs. Pt lost a total of 10 pounds since starting medication this is a 5% weight loss in 3 months. Anti-Obesity Medications >Phentermine: No uncontrolled HTN, No CVD Hx or hx of seizure disorder. No MAOI inhibitor use. No drug abuse hx. Crcl > 15. >Topiramate/zonisamide: No seizure or kidney stone hx. hx of migraines, yes hx of poor sleep. no Child bearing age. >Qsymia: see above >Contrave: No contraindications. Could affect mood. No uncontrolled HTN or hx of seizure disorder. No MAOI inhibitor use. No opiate use. >Saxenda/Wegovy/Ozempic: Cost. Ins coverage? >Metformin: No contraindications or medication interactions. eGFR > 30. CrCl cannot be calculated (Patient's most recent lab result is older than the maximum 180 days allowed.). PAST MEDICAL HISTORY Diagnosis Date Abnormal mammogram right breast Obesity, unspecified Current Outpatient Medications Medication Sig Dispense Refill Phentermine HCl 37.5 mg capsule Take 37.5 mg by mouth. topiramate (TOPAMAX) 50 mg tablet Take 1 tablet by mouth twice daily. 60 tablet 2 metFORMIN E (more content not included)... [facility] 05-18-2023 Miscellaneous Notes Pt with dysuria after completing course of Keflex. Unable to leave urine sample given she is at work currently. Symptoms bothersome. documented in this encounter [facility] 2023 Miscellaneous Notes Pt has upcoming appt for weight mgmt. Refill given. See pt's mychart refill request below. Pt has upcoming follow up appt on 05/14/23. Please advise. Anne-Marie eJter LPN documented in this encounter [facility] 04-03-2023 Instructions Zelda Echevarria MD - 04/03/2023 12:31 PM EDT METFORMIN Dosing -- Begin Metformin 500 ER mg with dinner daily x 3-5days. If you are experiencing any GI side effects, do not increase dose for 1-4 weeks. If tolerating, you can increase to 2 tablets with dinner daily. Taking the medication with food will help. -- if you experience any GI upset (Nausea, diarrhea, bloating, gas) you can go back to 1 tablet or hold the medication until it resolves. Once you are tolerating the medication you can try increasing it again. -- we can discuss increasing the dose further at your follow up visit. -- Metformin can interfere with the absorption of B12 in your food, please add a B12 1,000-2,400 mcg supplement and I suggest having it checked every 1-2 years Using Metformin for weight loss: Metformin helps to lower blood glucose levels by reducing the amount of glucose produced and released by the liver, and by increasing insulin sensitivity. It has now been proven to prevent or delay diabetes. Metformin and Type 2 Diabetes Prevention Diabetes Spectrum (diabetesjournals.org) Large cohort studies have shown weight loss benefits associated with metformin therapy. Emerging evidence suggests that metformin-associated weight loss is due to modulation of hypothalamic appetite-regulatory centers, alteration in the gut microbiome, and reversal of consequences of aging. Metformin is also being explored in the management of obesity s sequelae such as hepatic steatosis, obstructive sleep apnea and osteoarthritis. Effectiveness of metformin on weight loss in non-diabetic individuals with obesity - PubMed (nih.gov) Is metformin a wonder drug? - [facility] Common side effects of this medication include nausea, changes in bowel habits, abdominal discomfort, and flatulence. Taking the medication with food will help. Side effects also typically get better with time. Rarely, a severe side effect called lactic acidosis can occur. If you experience malaise, muscle aches, difficulty breathing, or severe abdominal pain, please seek immediate medical attention. When to Take Extended-Release Metformin Metformin HCL is metabolized slowly, over 24 hours, which helps reduce GI side effects. Metformin extended-release is often a good option for people who experience adverse GI symptoms with standard metformin. Metformin HCL should be taken at night, with food. Carolyn Wallace MD, clinical director of adult diabetes at [facility], explains why timing metformin HCL with the evening meal is so important. In normal physiology, a person's liver often makes glucose overnight, she says. So, it's not uncommon for a person to go to bed with a good blood glucose level and wake up with a higher one because their liver has been releasing sugar [all night]. Metformin turns off or slows down this process, so it can be more effective at night in treating fasting high blood sugar. https://www.Descub[employer].la.[employer]/article /[email or web address]-fmkb-kj-b-oawj-lsvhzsnru-e pz-pe-bzlp-xidxgps-yt-epvcs/ Metformin: Patient drug information Warning Rarely, metformin may cause too much lactic acid in the blood (lactic acidosis). The risk is higher in people who have kidney problems, liver problems, heart failure, use alcohol, or take other drugs like topiramate. The risk is also higher in people who are 65 or older and in people who are having surgery, an exam or test with contrast, or other procedures. If lactic acidosis happens, it can lead to other health problems and can be deadly. Kidney tests may be done while taking this drug. Do not take this drug if you have a very bad infection, low oxygen, or a lot of fluid loss (dehydration). Call your doctor right away if you have signs of too much lactic acid in the blood (lactic acidosis) like fast breathing, fast or slow heartbeat, a heartbeat that does not feel normal, very bad upset stomach or throwing up, feeling very sleepy, shortness of breath, feeling very tired or weak, very bad dizziness, feeling cold, or muscle pain or cramps. What is this drug used for? It is used to lower blood sugar in patients with high blood sugar (diabetes), treatment for PCOS, What do I need to tell my doctor BEFORE I take this drug? If you are allergic to this drug; any part of this drug; or any other drugs, foods, or substances. Tell your doctor about the allergy and what signs you had. If you have any of these health problems: Acidic blood problem, kidney disease, or liver disease. If you have had a recent heart attack or stroke. If you are not able to eat or drink like normal, including before certain procedures or surgery. If you are having an exam or test with contrast or have had one within the past 48 hours, talk with your doctor. This is not a list of all drugs or health problems that interact with this drug. Tell your doctor and pharmacist about all of your drugs (prescription or OTC, natural products, vitamins) and health problems. You must check to make sure that it is safe for you to take this drug with all of your drugs and health problems. Do not start, stop, or change the dose of any drug without checking with your doctor. What are some things I need to know or do while I take this drug? All products: Tell all of your health care providers that you take this drug. This includes your doctors, nurses, pharmacists, and dentists. Talk with your doctor before you drink alcohol. Do not drive if your blood sugar has been low. There is a greater chance of you having a crash. Check your blood sugar as you have been told by your doctor. Have blood work checked as you have been told by the doctor. Talk with the doctor. It may be harder to control blood sugar during times of stress such as fever, infection, injury, or surgery. A change in physical activity, exercise, or diet may also affect blood sugar. Follow the diet and workout plan that your doctor told you about. If diarrhea happens or you are throwing up, call your doctor. You will need to drink more fluids to keep from losing too much fluid. Be careful in hot weather or while being active. Drink lots of fluids to stop fluid loss. Long-term treatment with metformin may lead to low vitamin B-12 levels. If you have ever had low vitamin B-12 levels, talk with your doctor. If you are 65 or older, use this drug with care. You could have more side effects. There is a chance of in people of childbearing age who have not been ovulating. If you want to avoid , use control while taking this drug. Tell your doctor if you are , plan on getting , or are breast-feeding. You will need to talk about the benefits and risks to you and the baby. Extended-release tablets: You may see something that looks like the tablet in your stool. This is normal and not a cause for concern. If you have questions, talk with your doctor. What are some side effects that I need to call my doctor about right away? WARNING/CAUTION: Even though it may be rare, some people may have very bad and sometimes deadly side effects when taking a drug. Tell your doctor or get medical help right away if you have any of the following signs or symptoms that may be related to a very bad side effect: Signs of an allergic reaction, like rash; hives; itching; red, swollen, blistered, or peeling skin with or without fever; wheezing; tightness in the chest or throat; trouble breathing, swallowing, or talking; unusual hoarseness; or swelling of the mouth, face, lips, tongue, or throat. It is common to have stomach problems like upset stomach, throwing up, or diarrhea when you start taking this drug. If you have stomach problems later during treatment, call your doctor right away. This may be a sign of an acid health problem in the blood (lactic acidosis). Low blood sugar can happen. The chance may be raised when this drug is used with other drugs for diabetes. Signs may be dizziness, headache, feeling sleepy or weak, shaking, fast heartbeat, confusion, hunger, or sweating. Call your doctor right away if you have any of these signs. Follow what you have been told to do for low blood sugar. This may include taking glucose tablets, liquid glucose, or some fruit juices. What are some other side effects of this drug? All drugs may cause side effects. However, many people have no side effects or only have minor side effects. Call your doctor or get medical help if any of these side effects or any other side effects bother you or do not go away: Stomach pain or heartburn. Gas. Diarrhea, upset stomach, or throwing up. Feeling tired or weak. Headache. These are not all of the side effects that may occur. If you have questions about side effects, call your doctor. Call your doctor for medical advice about side effects. You may report side effects to your national health agency. How is this drug best taken? Use this drug as ordered by your doctor. Read all information given to you. Follow all instructions closely. All products: Take with meals. Keep taking this drug as you have been told by your doctor or other health care provider, even if you feel well. Extended-release tablets: Take with the evening meal if taking once daily. Swallow whole. Do not chew, break, or crush. If you have trouble swallowing, talk with your doctor. HOW DOES CHRONIC STRESS AFFECT EATING PATTERNS? Chronic stress can affect the body s use of calories and nutrients in various ways. It raises the body s metabolic needs and increases the use and excretion of many nutrients. If one does not eat a nutritious diet, a deficiency may occur.Stress also creates a chain reaction of behaviors that can negatively affect eating habits, leading to other health problems down the road. Stress places a greater demand on the body for oxygen, energy, and nutrients. Yet people who experience chronic stress may crave comforting foods such as highly processed snacks or sweets, which can be high in unhealthy fats, sugar, and calories but low in micronutrients. People feeling stress may lack the time or motivation to prepare nutritious, balanced meals, or may skip or forget to eat meals. Stress can disrupt sleep by causing slubber tender sleep or more frequent awakenings, which leads to fatigue during the day. In order to cope with daytime fatigue, people may use stimulants to increase energy such as with caffeine or high-calorie snack foods. The reverse may also be true that poor-quality sleep is itself a stressor. Studies have found that sleep restriction causes a significant increase in cortisol levels. During acute stress, adrenaline suppresses the appetite.But with chronic stress, elevated levels of cortisol may cause cravings, particularly for foods high in sugar, fat, and calories, which may then lead to weight gain. Cortisol favors the accumulation of fat in the belly area, also called central adiposity, which is associated with insulin resistance and an increased risk of type 2 diabetes, cardiovascular disease, and certain breast cancers.4,6-8 It also lowers levels of the hormone leptin (that promotes satiety) while increasing the hormone ghrelin (that increases appetite). [email or web address]/wp-co ntent/uploads/sites//Nita [email or web address].pdf Disrupted Sleep Linked to Weight Gain - YouTube How To Improve Your Sleep To Impact Your Weight Loss: [email or web address]/ Weight Loss and Sleep Updated June 29, 2020 Written by Reji Morales Medically Reviewed by Anne-Marie Harden In This Article The Connection Between Sleep and Weight Sleep and Obesity Sleep During Weight Loss Maintaining a Healthy Relationship With Your Body Losing weight is challenging, and keeping weight off can be just as difficult. Although the medical community is still untangling the complicated relationship between sleep and body weight, several potential links have emerged that highlight the potential weight loss benefits of getting a good night s rest and the negative health impacts of sleep deprivation. The Connection Between Sleep and Weight Over the past several decades, the amount of time that Americans spend sleeping has steadily decreased1, as has the self-reported quality of that sleep. For much of the same time period, the average body mass index (BMI) of Americans increased2, reflecting a trend toward higher body weights and elevated rates of obesity. In response to these trends, many researchers began to hypothesize about potential connections between weight and sleep. Numerous studies have suggested that restricted sleep and poor sleep quality may lead to metabolic disorders, weight gain, and an increased risk of obesity and other chronic health conditions. While there is continuing debate within the medical community about the exact nature of this relationship, the existing research points to a positive correlation between good sleep and healthy body weight. There remains much to be discovered about the intricate details of how sleep and weight are connected. Several hypotheses offer paths for additional research with the hope that increasing our understanding of the relationship between weight and sleep will lead to reduced obesity and better weight-loss methods. Can Lack of Sleep Increase Appetite? One common hypothesis about the connection between weight and sleep involves how sleep affects appetite. While we often think of appetite as simply a matter of stomach grumbling, it s actually controlled by neurotransmitters, which are chemical messengers that allow neurons (nerve cells) to communicate with one another. The neurotransmitters ghrelin and leptin are thought to be central to appetite. Ghrelin promotes hunger, and leptin contributes to feeling full. The body naturally increases and decreases the levels of these neurotransmitters throughout the day, signaling the need to consume calories3. A lack of sleep may affect the body s regulation of these neurotransmitters. In one study, men who got 4 hours of sleep had increased ghrelin and decreased leptin compared to those who got 10 hours of sleep. This dysregulation of ghrelin and leptin may lead to increased appetite and diminished feelings of fullness in people who are sleep deprived. In addition, several studies have also indicated that sleep deprivation affects food preferences. Sleep-deprived individuals tend to choose foods that are high in calories and carbohydrates4. Other hypotheses regarding the connection between sleep and increased appetite involve the body s endocannabinoid system5 and orexin6, a neurotransmitter targeted by some sleep aids. Many researchers believe that the connection between sleep and dysregulation of neurotransmitters is complicated and additional studies are needed to further understand the neurobiological relationship. Does Sleep Increase Metabolism? Metabolism7 is a chemical process in which the body converts what we eat and drink into energy needed to survive. All of our collective activities, from breathing to exercising and everything in between, is part of metabolism. While activities like exercise can temporarily increase metabolism, sleep cannot8. Metabolism actually slows about 15% during sleep, reaching its lowest level in the morning 9. In fact, many studies have shown that sleep deprivation (whether due to self-induction, insomnia, untreated sleep apnea, or other sleep disorders) commonly leads to metabolic [id number]. Poor sleep is associated with increased oxidative stress, glucose (blood sugar) intolerance (a precursor to diabetes), and insulin resistance. Extra time spent awake may increase the opportunities to eat11, and sleeping less may disrupt circadian rhythms, leading to weight gain12. How is Sleep Related to Physical Activity? Losing sleep can result in having less energy for exercise and physical activity. Feeling tired can also make sports and exercising less safe, especially activities like weightlifting and or those requiring balance. While researchers are still working to understand this [id number], it s well known that exercise is essential to maintaining weight loss and overall health. Getting regular exercise can improve sleep quality, especially if that exercise involves natural light. While even taking a short walk during the day may help improve sleep, more activity can have a more dramatic impact. Engaging in at least 150 minutes of moderate-intensity or 75 minutes of high-intensity exercise per week can improve daytime concentration and decrease daytime [id number]. Sleep and Obesity In children and adolescents, the link between not getting enough sleep and an increased risk of obesity is well-established, although the reason for this link is still being debated. Insufficient sleep in children can lead to metabolic irregularities as discussed earlier, skipping breakfast in the mornings, and increased intake of sweet, salty, fatty, and starchy foods15. In adults, the research is less clear. While a large analysis of past studies suggests that people getting less than 6 hours of sleep at night are more likely to be diagnosed as obese16, it s challenging for these studies to determine cause and effect. Obesity itself can increase the risk of developing conditions that interfere with sleep, like sleep apnea and depression. It s not clear if getting less sleep is the cause of obesity in these studies, if obesity is causing the participants to get less sleep, or perhaps a mix of both. Even though more studies are needed to understand this connection, experts encourage improving sleep quality when treating obesity in adults. Sleep During Weight Loss Getting adequate, quality sleep is an important part of a healthy weight loss plan. Most importantly, research has shown that losing sleep while dieting can reduce the amount of weight lost17 and encourage vertyvnbap51. Tips for Quality Sleep During Weight Loss There are many ways to improve sleep. Here are a few research-based tips for sleeping better when you re trying to lose weight: Keep a regular sleep schedule: Big swings in your sleep schedule or trying to catch up on sleep after a week of late nights can cause changes in metabolism and reduce insulin [id number], making it easier for blood sugar to be elevated. Sleep in a dark room: Exposure to artificial light while sleeping, such as a TV or bedside lamp, is associated with an increased risk of weight gain and duhpefm49. Don t eat right before bed: Eating late may reduce the success of weight loss [id number] Reduce Stress: Chronic stress may lead to poor sleep and weight gain in several ways, including eating to cope with negative [id number] Be an Early Bird: People with late bedtimes may consume more calories and be at a higher risk for weight gain23. Early birds may be more likely to maintain weight loss when compared to night owls24. Maintaining a Healthy Relationship With Your Body Deciding if you should attempt to change your body weight is a personal decision best made with the guidance of your doctor. Don t take all the health and weight loss information you read [id number] at face value. Weight loss isn t appropriate for everyone and doesn t always mean better health. Remember that health is a lifelong journey that includes not only healthy habits but also having a healthy relationship with your body. If you re considering weight loss, the National Institutes of Health offers a helpful resource for choosing a safe weight loss [id number] Source National [employer] of Diabetes and Digestive and Kidney DiseasesNIDDK research creates knowledge about and treatments for diseases that are among the most chronic, costly, and consequential for patients, their families, and the Nation. niddk.nih.gov . https://www.sleepfoundation.org/ph ysical-health/iaowyq-xgym-hhq-slee p documented in this encounter [facility] 04-03-2023 Note HNO ID: [id number] Author: Zelda Mark MD Service: ? Author Type: Physician Type: Progress Notes Filed: 04/03/2023 12:32 PM Note Text: Some documentation from previous visit of 02/27/23 was copied and pasted, documentation has been reviewed and edited as necessary for today's visit. Patient Summary: Stephanie is a 52 year old female who presents for follow-up evaluation of her obesity/weight management to treat and prevent relatedco-morbidities. In our previous visits we have discussed lifestyle intervention including a nutrition recommendations and physical activity optimization. Her last office visit was 1 month ago. Assessment/plan from last visit: Stephanie Jarvis is a 52 year old yo with class 2obesity who presented today for follow up for supervised weight loss. No significant change in weight or change with her overall status. She has made some improvements in her nutritional status. She is increasing her protein and tracking it at home. She is tracking her weight as well as her daily exercise and steps. Today we will increase phentermine to 37.5 mg tablets. Increase Topamax to 50 mg twice daily. Hoping that this will help to sleep. We discussed the importance of sleep with weight loss. Discussed meditation lavender oils decreasing screen time. Discussed weight loss goal 5% to remain on phentermine which would by 200lb. Discussed labs with patient- elevated fasting glucose 108. May consider metformin next month if no improvement. (R73.01) Elevated fasting glucose (primary encounter diagnosis) Consider metformin (G47.8) Poor sleep pattern- reviewed sleep routine, meditation, oils, decrase screen time. Topirmate to help? (E66.01, Z68.35) Class 2 severe obesity with serious comorbidity and body mass index (BMI) of 35.0 to 35.9 in adult, unspecified obesity type (HCC) Comment: Plan: Phentermine HCl 37.5 mg tablet (Z72.821) Poor sleep hygiene (Z76.89) Encounter for weight management- rto 4 weeks Interval History Patient reports she does feel that the medication is helping to decrease hunger. She states that she does eat breakfast every day unless she is hungry. She does sometimes do fasting without even trying. The fasting could last from 6 to 7 PM until 2 PM the next day. She is trying to listen to her body and if she is not hungry to not eat. She states she is doing 1 protein shake per day and then she will have chicken breast approximately 3 ounces and cottage cheese throughout the day. She states occasionally she will have cheese its may be twice per week and she typically has almonds for snack. She is very regimented with her diet now and does not eat high carbohydrate foods. She states that she does not understand why she did not lose more weight. She has a lot of stressors happening right now in her personal life and sleep is lacking even more than it was previously. She states that there are times while should be up for 36 hours. Patient reports she is exercising. She does weightlifting approximately 2-3 times per week and she does stationary bike frequently. Exercise is a routine part of her week. Exercise: stable Stress: increased Sleep: decreased Weight loss since last vist: 3lbs Anti-Obesity Medications >Phentermine: No uncontrolled HTN, No CVD Hx or hx of seizure disorder. No MAOI inhibitor use. No drug abuse hx. Crcl > 15. >Topiramate/zonisamide: No seizure or kidney stone hx. hx of migraines, yes hx of poor sleep. no Child bearing age. >Qsymia: see above >Contrave: No contraindications. Could affect mood. No uncontrolled HTN or hx of seizure disorder. No MAOI inhibitor use. No opiate use. >Saxenda/Wegovy/Ozempic: Cost. Ins coverage? >Metformin: No contraindications or medication interactions. eGFR > 30. CrCl cannot be calculated (Patient's most recent lab result is older than the maximum 180 days allowed.). PAST MEDICAL HISTORY Diagnosis Date Abnormal mammogram right breast Obesity, unspecified Current Outpatient Medications Medication Sig Dispense Refill topiramate (TOPAMAX) 50 mg tablet Take 1 tablet by mouth twice daily. 60 tablet 2 ranitidine (ZANTAC) 75 mg tablet Take 75 mg by mouth as needed. No current facility-administered medications for this visit. ROS Denies any chest pain, shortness of breath, dizziness. She denies any paresthesias, depression or anxiety. She denies any palpitations. BP 128/72 Pulse 94 Wt 207 lb (93.9 kg) LMP 09/28/2017 (Exact Date) SpO2 98% BMI 34.45 kg/m? Physical Exam Waist: 42.5 down from 43.25 Assessment/Plan: Stephanie Jarvis is a 52 year old yo female with Class 1 obesity who presented today for follow up for supervised weight lossto treat and prevent related co-morbidities. She does feel that this medication is helping at this time. We reviewed that her stressors in life and her lack of sleep may be impacting her weight loss. We discussed inter (more content not included)... [facility] 04-03-2023 History of Present illness Narrative Some documentation from previous visit of 02/27/23 was copied and pasted, documentation has been reviewed and edited as necessary for today's visit. Patient Summary: Stephanie is a 52 year old female who presents for follow-up evaluation of her obesity/weight management to treat and prevent relatedco-morbidities. In our previous visits we have discussed lifestyle intervention including a nutrition recommendations and physical activity optimization. Her last office visit was 1 month ago. Assessment/plan from last visit: Stephanie Jarvis is a 52 year old yo with class 2obesity who presented today for follow up for supervised weight loss. No significant change in weight or change with her overall status. She has made some improvements in her nutritional status. She is increasing her protein and tracking it at home. She is tracking her weight as well as her daily exercise and steps. Today we will increase phentermine to 37.5 mg tablets. Increase Topamax to 50 mg twice daily. Hoping that this will help to sleep. We discussed the importance of sleep with weight loss. Discussed meditation lavender oils decreasing screen time. Discussed weight loss goal 5% to remain on phentermine which would by 200lb. Discussed labs with patient- elevated fasting glucose 108. May consider metformin next month if no improvement. (R73.01) Elevated fasting glucose (primary encounter diagnosis) Consider metformin (G47.8) Poor sleep pattern- reviewed sleep routine, meditation, oils, decrase screen time. Topirmate to help? (E66.01, Z68.35) Class 2 severe obesity with serious comorbidity and body mass index (BMI) of 35.0 to 35.9 in adult, unspecified obesity type (HCC) Comment: Plan: Phentermine HCl 37.5 mg tablet (Z72.821) Poor sleep hygiene (Z76.89) Encounter for weight management- rto 4 weeks Interval History Patient reports she does feel that the medication is helping to decrease hunger. She states that she does eat breakfast every day unless she is hungry. She does sometimes do fasting without even trying. The fasting could last from 6 to 7 PM until 2 PM the next day. She is trying to listen to her body and if she is not hungry to not eat. She states she is doing 1 protein shake per day and then she will have chicken breast approximately 3 ounces and cottage cheese throughout the day. She states occasionally she will have cheese its may be twice per week and she typically has almonds for snack. She is very regimented with her diet now and does not eat high carbohydrate foods. She states that she does not understand why she did not lose more weight. She has a lot of stressors happening right now in her personal life and sleep is lacking even more than it was previously. She states that there are times while should be up for 36 hours. Patient reports she is exercising. She does weightlifting approximately 2-3 times per week and she does stationary bike frequently. Exercise is a routine part of her week. Exercise: stable Stress: increased Sleep: decreased Weight loss since last vist: 3lbs Anti-Obesity Medications >Phentermine: No uncontrolled HTN, No CVD Hx or hx of seizure disorder. No MAOI inhibitor use. No drug abuse hx. Crcl > 15. >Topiramate/zonisamide: No seizure or kidney stone hx. hx of migraines, yes hx of poor sleep. no Child bearing age. >Qsymia: see above >Contrave: No contraindications. Could affect mood. No uncontrolled HTN or hx of seizure disorder. No MAOI inhibitor use. No opiate use. >Saxenda/Wegovy/Ozempic: Cost. Ins coverage? >Metformin: No contraindications or medication interactions. eGFR > 30. CrCl cannot be calculated (Patient's most recent lab result is older than the maximum 180 days allowed.). PAST MEDICAL HISTORY Diagnosis Date Abnormal mammogram right breast Obesity, unspecified Current Outpatient Medications Medication Sig Dispense Refill topiramate (TOPAMAX) 50 mg tablet Take 1 tablet by mouth twice daily. 60 tablet 2 ranitidine (ZANTAC) 75 mg tablet Take 75 mg by mouth as needed. No current facility-administered medications for this visit. ROS Denies any chest pain, shortness of breath, dizziness. She denies any paresthesias, depression or anxiety. She denies any palpitations. BP 128/72 Pulse 94 Wt 207 lb (93.9 kg) LMP 09/28/2017 (Exact Date) SpO2 98% BMI 34.45 kg/m Physical Exam Waist: 42.5 down from 43.25 Assessment/Plan: Stephanie Jarvis is a 52 year old yo female with Class 1 obesity who presented today for follow up for supervised weight lossto treat and prevent related co-morbidities. She does feel that this medication is helping at this time. We reviewed that her stressors in life and her lack of sleep may be impacting her weight loss. We discussed intermittent fasting with more rigid times and doing on a daily basis. We discussed increasing her topiramate to 150 mg/day. Start with taking 100 mg in the evening before bed and 50 mg during the daytime. Adding METFORMIN 500mg x 3-5 days then increase if no SE. patient or stands that this is off label use for weight loss. We discussed the common side effects of this medication. She has no contraindication to start. We discussed meditation and sleep routine. Discussed other ways to decrease her stressors. We talked through a lot of the emotional /stress concerns today. Progress log for carbohydrate and protein intake as well as exercise and medication management was given to the patient today goal is to be under 60 g of carbs per day She does understand that in order to maintain using phentermine she does need to lose 7 pounds this next month on the phentermine. In order to achieve a 5% weight loss from starting the phentermine. (R73.01) Elevated fasting glucose (primary encounter diagnosis) Comment: Plan: continue with low carbohydrate diet, high protein and routine exercise- START METFORMIN (E66.01, Z68.35) Class 2 severe obesity with serious comorbidity and body mass index (BMI) of 35.0 to 35.9 in adult, unspecified obesity type (HCC) Comment: Plan: Phentermine HCl 37.5 mg tablet And topiramate- off label use will increase to 100mg at night and 50mg in day. (G47.8) Poor sleep pattern Comment: Plan: meditation and other sleep hygiene option reviewed. Medical Decision Making: Problems: Moderate: 1+ chronic illnesses with change Risk: Moderate: Drug management Medical Decision Making Level: 4 - Moderate Follow up in 4 weeks Zelda Bo MD documented in this encounter [facility] 02-27-2023 Note HNO ID: [id number] Author: Zelda Mark MD Service: ? Author Type: Physician Type: Progress Notes Filed: 02/27/2023 9:50 AM Note Text: Patient Summary: is 52 year old female who presents for follow-up evaluation of her obesity/weight management to treat and prevent co-morbidities . In our previous visits we have discussed lifestyle intervention including a nutrition recommendations and physical activity optimization. Stephanie Jarvis is here today for follow up evaluation for obesity. Her last office visit was 1 month ago. Assessement/plan from last visit: -- Based on the severity and resistance of the obesity/overweight with co-morbidities, I believe a combination of behavioral and pharmacological intervention is the best and most appropriate intermediate manager therapeutic option. -- We discussed several strategies to track food intake and increase mindfulness around eating. She was counseled on the following: Eating primarily whole foods. Limit carbs, especially processed carbs. Do not drink your calories 30 grams of protein for breakfast decreases your hunger during the day by up to 40 % Premier Protein or generic 30 gm protein 1 gm sugar Walk for 15 minutes immediately a meal. -- Encouraged the patient to improve her physical activity. Although cardiovascular exercise is most beneficial for weight loss initially, we discussed healthy muscle from a combination of resistance training and cardiovascular exercise is the best mcfp plan. An overall goal of 150-200 minutes per week of exercise has been effective in weight loss and maintenance. -- follow-up visit for management of above interventions -- Reviewed that monitoring weight daily and food intake can have a positive impact on overall weight loss and maintenance of weight loss. Activity tracking can be used to stay on target for exercise however should not be used to reward oneself - Last Wt 01/30/23 : 210 lb 8 oz (95.5 kg) 5% weight loss = 200 lbs, 10% weight loss = 190 lbs She understands that there can be limitations of pharmacotherapy due to contraindications, side effects and cost. Patient was told to contact her insurance company to see what AOMs and supervised behavioral medical appointments are currently covered. Patient understands she will have more success when following a healthy lifestyle. We reviewed continued use of online tracking of daily weights, food journal and if desired physical activity. We reviewed that during management she is to report any concerning side effects of any pharmacotherapy she is placed on. She understands that she will need routine follow up in the office. Prior to any virtual visits in the future she will need to check her Blood pressure, weight, and pulse. After reviewing her diet there are some areas of improvement that we discussed. I would like for her to concentrate on increasing her protein and decreasing her carbohydrates. We discussed using protein shakes as a way to get more protein. She will limit carbohydrates to under 100 g/day at this time. Discussed sleeping would be a factor for weight loss. We discussed a sleep routine which may help. We discussed adding melatonin. We discussed sleep meditation. Getting off her screen time. We discussed topiramate may assist in her sleep. I would like her to take the 25 mg between 12 and 2:00 in the afternoon to see if that helps. The phentermine will be added in the morning 15 mg I discussed that this is a stimulant and I do not want to add to her inability to sleep but I also feel like she could have a sluggish resting metabolic rate. CBC, CMP, insulin, hemoglobin A1c, vitamin D levels ordered to [facility] I spent a total of 55 minutes on the date of the service which included preparing to see the patient, [id number] patient care, completing clinical documentation, obtaining and/or reviewing separately obtained history, performing a medically appropriate examination, counseling and educating the patient/family/caregiver, and ordering medications, tests, or procedures Interval History Patient reports that she feels no difference on the medication. She does not feel that the medication has changed any behaviors. She does not notice a decrease in appetite. She has no side effects. She has no chest pain shortness of breath or dizziness. She has no paresthesias. She states she has no dry mouth constipation. She reports that she has been decreasing her carbohydrate intake. She has changed her habits as far as not eating cereal for breakfast he has been eating eggs. She states that while she is watching TV she is doing an exercise bike. She is trying to change her sleep habits but is still only getting about 4 and half hours of sleep. She has bought protein teen shakes and is doing 1 a day. She is still getting 8-10,000 steps minimum a day. She is frustrated that the scale has no (more content not included)... [facility] 01-30-2023 Note HNO ID: [id number] Author: Zelda Mark MD Service: ? Author Type: Physician Type: Progress Notes Filed: 01/30/2023 11:28 AM Note Text: INITIAL WEIGHT MANAGEMENT CONSULT: Patient Summary: Stephanie Jarvis is a 52 year old female with obesity who presents for an initial evaluation of overweight/obesity and is interested in combination of behavioral and pharmacological Motivation for seeking treatment for the disease of overweight/obesity : does not want to regain weight that she has lost. 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 She states her weight gain is related to the following factors, including weight retention , reduced physical activity, and consumption of unhealthy foods. WEIGHT GRAPH: Medications: None Weight Promoting Medications: None Diet: Fluids: water-3 years ago she used to consume 24 cans of Mountain Dew a day. Now she only consumes water. Or sugar-free lemonade. Quality of diet: 24hr recall suggests healthy diet. Characterization of diet:Structured. 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 self-directed and counting calories . Limited to 1200cal when first started now at 1600 but does not track anything else. Exercise: Regular exercise: yes Strength/resistance exercise:yes Barriers to regular exercise? yes Work-related activity:Sedentary. Gym Membership: yes Activity Tracker: yes ?Sleep: Duration: 3 hours. NIDHI NO ; CPAP NO - was just tested in november ??Stress: Stressno:, Cause:none Obesity Related Comorbidities: Prior Weight Loss Surgery:skin removal PAST MEDICAL HISTORY Diagnosis Date Abnormal mammogram right breast Obesity, unspecified PAST SURGICAL HISTORY Procedure Laterality Date BREAST BIOPSY 06/30/2014 [facility] DELIVERY ONLY , low cervical x 2 HYSTEROSCOPY,W/ENDOMETRIAL ABLATION 02/04/2018 [facility] ablation LAPS SURG CHOLECYSTECTOMY W/CHOLANGIOGRAPHY 04/12/2008 Normal IOC LAPS TOTAL HYSTERECT 250 GM/< W/RMVL TUBE/OVARY Bilateral 05/20/2018 [facility], bilateral salpingectomy REDUCTION OF LARGE BREAST 1997 TUBAL LIGATION FAMILY HISTORY Problem Relation Age of Onset Hypertension Mother Cancer Father lung cancer - smoker Diabetes Maternal Grandmother Heart Maternal Grandmother Hypertension Maternal Grandmother Stroke Maternal Uncle Cancer Daughter leukemia Social History Tobacco Use Smoking status: Never Smokeless tobacco: Never Substance Use Topics Alcohol use: Yes Comment: occassionally Drug use: No Obesity ROS/ FHx GEN: Fatigue:no CV: h/o palpitations/cardiac arrhythmia, Chest pain: no HTN: no PULM: Asthma:no GI: GERD:no ; Gallstones:REMOVED ; Fatty liver disease:no Pancreatitis: no MSK: Joint Pain:no : Nephrolithiasis: no Symptoms of PCOS: no NEURO: Migraines/MERCER: no; H/o seizures: no Glaucoma:no; Cataracts no Symptoms of or History of pseudotumor cerebri:no Family or personal History of MEN2 or Medullary thyroid cancer: no PE BP 126/78 Pulse 64 Ht 5' 5 (1.651 m) Wt 210 lb 8 oz (95.5 kg) LMP 09/28/2017 (Exact Date) SpO2 99% BMI 35.03 kg/m? Weight Circumference: 43.25 110cm GENERAL: Female in NAD. Mixed central and gluteofemoral adiposity. SKIN: acanthosis nigricans no, Skin tags: no Hirsutism: no HEENT: PERRL, No supraclavicular adiposity. No dorsal adiposity. RESPIRATORY: CBTA CARDIAC: RRR ABDOMEN: Small pannus; EXTREMITIES: peripheral edema: no Results: reviewed with the patient No visits with results within 3 Month(s) from this visit. Latest known visit with results is: Office Visit on 05/28/2018 Component Date Value Ref Range Status GLUCOSE UA (POCT) 05/28/2018 Negative Negative mg/dL Final BILIRUBIN UA (POCT) 05/28/2018 Negative Negative Final KETONE UA (POCT) 05/28/2018 Negative Negative mg/dL Final SPECIFIC GRAVITY UA (POCT) 05/28/2018 1.020 1.005 - 1.030 Final HEMOGLOBIN/BLOOD UA (POCT) 05/28/2018 Trace-intact (A) Negative Final PH UA (POCT) 05/28/2018 6.0 4.5 - 8.0 Final PROTEIN UA (POCT) 05/28/2018 Negative Negative mg/dL Final UROBILINOGEN UA (POCT) 05/28/2018 0.2 Normal E.U./dL Final NITRITE UA (POCT) 05/28/2018 Negative Negative Final LEUKOCYTES UA (POCT) 05/28/2018 Trace (A) Negative Final COLOR UA (POCT) 05/28/2018 Yellow Final CLARITY UA (POCT) 05/28/2018 Clear Final Impression: Stephanie Jarvis is a 52 year old Female with Class II obesity (Body mass index is 35.03 kg/m?.) who has adult onset obesity with gradual weight gain then weight loss- now slowly regaining The causes of her (more content not included)... [facility] 01-30-2023 Instructions Zelda Mark MD - 01/30/2023 11:27 AM EDT Images from the original note were not included. Weight management: You have taken the initiative to become a healthier version of yourself and to decrease the risks that come with the diagnosis of obesity or being overweight. We are happy to help you along this journey but know this is a lifetime commitment to yourself. Losing just 3-10% of your body weight can decrease your risks of many other serious diseases like diabetes, heart disease, osteoarthritis, hypertension, cancer and so many others. During this time you will have triumphs, setbacks, and plateaus- your body will fight against you but we are here to give you the tools and resources to continue to reach your goals. We recommend during this time that you track your weight daily or at least five times per week as well as tracking your nutrition. You may track your activity but do not use hitting your fitness goals as a reward system as this can derail your success. We recommend weekly physical activity of 150-200min/week- although physical exercise can help with maintaining weight loss it adds only a little benefit for intermediate manager weight loss success. However, exercise can have many other benefits including improving mental health and cardiovascular health. Do not feel overwhelmed - we will discuss this more at your visits. Our time will be limited with each visit but we will try to touch on factors that are important to you and to your overall goals. We will try to set a goal at the end of each visit and then decide on what we want to accomplish with your upcoming visits. On your After Visit Summary (AVS), we will provide you with information that may be useful during this journey so please remember to read the information given. Check your AVS a few days after your appointment because we may have added more information specifically for you. Remember that if you are placed on medications, they are tools that can help you succeed but you must put in the work. Your nutrition will be the main factor. There are medications that work well for some and not for others- so it may take time to find the right combination for your body's needs. Please remember that factors such as other health co-morbidities one might have, as well as insurance coverage, will play a factor in determining which medications you can take. Most of the newer medications that are all the craze, Injectables, may not be covered or will only be covered if you fail months of oral medications- so please be patient with the process. It would be beneficial for you to determine what your insurance covers as far as Anti-Obesity Medications (AOMs), Nutritional counseling, behavioral intervention, and weight loss surgery. Please call your health insurance prior to your first appointment and write down coverage for each of those therapies. Most importantly, remember that ultimately our goal is to help you get to a healthier weight which will decrease your overall health risks. We will work together as a team and try to reach your personalized goals as well. We appreciate that you have entrusted us with your health and know that we are committed to this process with you. Sincerely, Zelda Mark MD, EDILIA & Yuliya Beebe CNP PHENTERMINE -- Please take tablet or capsule as directed. May need to decrease dose or stop if uncontrolled BP or sustained elevated pulse. -- Please monitor your blood pressure (either purchase BP cuff, or go to pharmacy to check your BP at a local pharmacy). Please avoid any stimulants (in the form of caffeinated beverages like coffee, tea, sports drinks) and caution with decongestants. We will require an updated blood pressure and heart rate at follow up visits (this includes virtual visits). -- Please monitor for , if at any point you become please stop the medication. THIS IS A SUMMARY OF OUR DISCUSSION ABOUT THIS MEDICATION. PLEASE READ IT IS IMPORTANT FOR YOUR WEIGHT LOSS PLAN Per updated [place] state rules, initially, a one month supply of phentermine is prescribed. You will need to be seen every month for the first 3 months for follow-up and to assess effectiveness with a total 5% weight loss in that 3 month period. If the phentermine is effective for you, treatment with phentermine can continue with a one month supply of phentermine prescribed at a time with 2 refills. You, the patient, are responsible for making an appointment to see a provider within 12 weeks in order to get a refill of this medication. It is imperative that you get this (and future) phentermine prescriptions within 7 days as pharmacists will NOT refill prescriptions outside this 7 day window per State law. Phentermine can only be prescribed for a 3 month interval at a time. You are aware of the following statements per the state of [place] pharmacy board rules. 1. Timely refills are required 2. Every 12 weeks office visits are required. 3. ALL prescriptions need to be filled within 7 days of the written prescription 4. Refills need to be done EVEN IF there is medication still available ? Phentermine (fen ter meen) What are the common names? Adipex-P, Ionamin Why is this medication prescribed? Phentermine was approved by the FDA in 1958 for short term weight loss. It works by decreasing appetite. Phentermine is absorbed by the body and travels to the appetite center of the brain. It works by helping you feel less hungry, less driven to eat, more satisfied with less food. I ve heard about fen-phen. Will phentermine affect my heart? The two drug combination fenfluramine/phentermine, usually called fen-phen, became popular in the early as a diet pill. However, it was withdrawn by the FDA in late 1996 after studies which showed that fenfluramine can cause fatal pulmonary hypertension and heart valve problems. Phentermine is not a combination medication and does not contain the compound fenfluramine. What special precautions should I follow? Before having phentermine prescribed, tell your doctor and pharmacist: If you have allergies to any component of phentermine If you are , plan to become , are breast-feeding, or if you become while taking phentermine What are the absolute contraindications? Stroke or Transient Ischemic Attacks Cardiac arrhythmias or Atrial fibrillation Coronary artery disease Seizure Disorder Uncontrolled blood pressure Angina Congestive Heart Failure Valvular Heart Disease or primary pulmonary hypertension Drug interactions. Use of monamine oxidase inhibitors (MAOI s) What are the side effects of phentermine? Immediately discontinue the medicine and seek medical help if you have severe symptoms such as chest pain, shortness of breath, feeling faint, ability to think clearly, eye pain or other visual symptoms: Palpitations (strong or rapid heartbeat) Difficulty sleeping or falling asleep Elevated blood pressure Dry mouth Anxiety or agitation Getting a stimulant/or hyper effect or jitteriness-(Usually goes away after a few days or weeks) Glaucoma In case of emergency/overdose In case of overdose, call your local poison control center at or call local emergency services at [phone]. What other information should I know? Keep all appointments with your doctor and the laboratory. Do not let anyone else take your medication. Phentermine is a controlled substance. It is FDA approved for up to 3 months. Prescriptions may be refilled only a limited number of times. Keep a written list of all of your prescription and nonprescription (qvkv-glx-qhpyjnx) medicines, in addition to vitamins, minerals, or other dietary supplements. If you are taking the extended-release (long-acting) tablets, do not split, chew, or crush them tablet. There are some tablets that can be crushed and mixed with food Alcohol can make the side effects of phentermine worse How should I monitor while on this medication? Please check your blood pressure (BP) and resting pulse weekly (twice a week in the first 2 weeks). If the BP is over 140/90 (either one), or if the resting pulse is over 96 per minute (count for 10 seconds and multiply by 6), then stop the medication and call your doctor. Continue to improve your dietary and physical activity habits as the combination works best while on this medication. Start out by taking the medication in the morning at least 30 minutes prior to meals. If the effect seems to wear off by dinner time, try taking it later in the morning, but taking too late may result in trouble falling asleep. Be sure to eat regular meals. Less hunger does not make it appropriate to skip meals. Monitor your caffeine intake and use of decongestants as they may worsen the effects of phentermine Make sure to have an eye exam, including the pressure in your eyes (intra-ocular pressure), once a year. What should I do if I forget a dose? Skip the missed dose and continue your regular dosing schedule the next day. Do not take a double dose to make up for a missed one. Sources [facility] Consumer Medication Info: http://www.ncbi.nlm.nih.gov/pubmed health/LDT8449288/ AMA patient handouts: http://www.amaassn.org/ama1/pub/up load/mm/433/phrxsurgery.pdf Drugs.com: http://www.drugs.com/pro/phentermi ne.html TOPIRAMATE -- Take one tablet (25mg) every night for 2 weeks -- Then increase to 2 tablets at bedtime (50 mg) if there is no change in your appetite, cravings or weight. Or can move them up to dinner time- or you can do 25 mg in the am and 25 mg in the evening if it doesn't make you tired. -- You can take the tablet it at night at first (because of potential sleepiness side effects), but then you can take earlier around dinner after you have started the medication for a few days. You also may be able to take it in the morning if easier. -- We may increase the dose to 3 tablets (75mg) a few weeks later if there is no change with 2 tablets (50mg), either 1 in the morning, then 2 in the evening at dinner or bedtime or 3 (75 mg) in the evening. The maximum is usually 50 mg in the am and 50 mg in the evening or 100 mg in the evening and continue to increase the medication in this way (usually no more than 150mg). If at any point you are feeling the effects of the medication you can stay at that dose or if you experience side effects you can decrease it to the previous dose. -- Please see the handout to review the potential side effects and to explain this further -- Please let me know if you experience any changes in your vision, worsening depression or mood problems, or an increase in suicidal thoughts or behaviors. --This medication should NOT be combined with alcohol. Risks of drinking alcohol while taking this medication include mental and psychological side effects, including confusion, dizziness, drowsiness, and depression. -- There is an increased risk for oral clefts when topiramate is used in the first trimester of . -- There is a possible decrease in contraceptive efficacy when using estrogen-containing control with topiramate, please use a back up form of control such as condoms and monitor for throughout treatment. -- If you decide that you would like to get or if you have any of these side effects please let me know and we can safely discontinue the medication. - If you are on loop diuretic or thiazide diuretic we will want to monitor your potassium level, especially if you have a history of low potassium. - It is important to taper off of this medication when we finished with treatment, typically decreasing the dose 25 mg a week. Stopping Topiramate abruptly can cause irritability, anxiety and difficulty concentrating. -- The exact mechanism of topiramate on energy balance regulation is not clearly understood. Topiramate affects body mass index, fasting khxrtmv-be-yeejkbn ratio, and serum leptin and cortisol levels. It has shown to improve hypothalamic insulin and leptin signaling and action and reduce obesity in mice. These changes may be stark factors in weight loss due to topiramate. Topiramate (toe pyre a mate) What are the common names? Topamax Why is this medication prescribed? Topiramate is an anti-epileptic medications which has been approved by the FDA for patients 10 years of age or older for treatment of seizures. However, topiramate also has other uses such as the treatment of migraines. It also causes decrease in appetite and weight loss. The mechanism of weight loss is thought to be through inhibition of mitochondrial enzymes involved in energy expenditure and metabolism. Topiramate may work by helping you feel less hungry, less driven to eat, more satisfied with less food. What special precautions should I follow? Before having topiramate prescribed, tell your doctor and pharmacist: If you have allergies to any component of topiramate If you are , plan to become , are breast-feeding, or if you become while taking topiramate What are the warnings and precautions for this medication? Immediately discontinue the medicine and seek medical help if you have severe cognitive/neuropsychiatric adverse symptoms or eye symptoms. Cognitive/neuropsychiatric adverse events: symptoms may include confusion, psychomotor slowing, difficulty with concentration/attention, difficulty with memory, speech or language problems, particularily word-finding difficulties, somnolence or fatigue Acute myopia and secondary angle closure glaucoma, usually within 1 month of starting treatment: symptoms may include blurred vision, redness and/or pain in the eye Oligohydrosis (decrease sweating) and hyperthermia (elevation in body temperature) Increase in suicidal behavior or ideation Metabolic acidosis, non-gap hyperchloremic (decreased serum bicarbonate below normal levels) resulting in hyperventilation or fatigue Kidney stones Paresthesias (numbness or tingling in hands or feet) Ataxia Dizziness Increase in urination frequency Drug interactions. Use of monamine oxidase inhibitors (MAOI s), valproic acid, Caution use with dehydration or diarrheal illness, hepatic or renal impairment In case of emergency/overdose In case of overdose, call your local poison control center at or call local emergency services at 235. What other information should I know? Keep all appointments with your doctor and the laboratory. Do not let anyone else take your medication. Topiramate use needs to be monitored closely. Prescriptions may be refilled only a limited number of times. Keep a written list of all of your prescription and nonprescription (xnzh-khc-flpwcpp) medicines, in addition to vitamins, minerals, or other dietary supplements. How should I monitor while on this medication? Your doctor will check your baseline kidney function and electrolytes prior to starting this medication, then periodically. Continue to improve your dietary and physical activity habits as the combination works best while on this medication. Start out by taking the medication at bedtime as it can cause fatigue and sleepiness. Be sure to eat regular meals. Less hunger does not make it appropriate to skip meals. Make sure to have an eye exam, including the pressure in your eyes (intra-ocular pressure), once a year. What should I do if I forget a dose? Skip the missed dose and continue your regular dosing schedule the next day. Do not take a double dose to make up for a missed one. Sources Pubmed Health: http://www.ncbi.nlm.nih.gov/pubmed health/MXO7445553/ Drugs.com http://www.drugs.com/pro/topiramat e.html When you take medications like TOPAMAX and ZONEGRAN they tend to cause an imbalance in your pH levels. This imbalance causes side effects like foggy head, forgetfulness, confusion, difficulty recalling simple words or names, and tingling in your hands and feet. Citric acid may help to neutralize the imbalance caused by the medication. Also stay hydrated! With low fluid intake, urine output is decreased and urine flow is slower, both of which increase the risk of pH imbalance. Avoid soda as well. Increase the proportion of fruits and vegetables and reduce your daily protein intake to 0.8-1.0 g per kg body weight. Bitex.la Link: [employer] Hydration ideacts innovations : TRUE LEMON Water Enhancer True Lemon (CBTec) If neither of these are effective you can try: Euphasia https://healthymindbodyandspirit.c om/pages/gyldynm-bytg-uunoxhm Sources https://www.ncbi.nlm.nih.gov/pmc/a rticles/MKL4173347/ https://www.ncbi.nlm.nih.gov/pmc/a rticles/OGQ1139294/ Disrupted Sleep Linked to Weight Gain - YouTube How To Improve Your Sleep To Impact Your Weight Loss: https://Jobydu/ep42/ Weight Loss and Sleep Updated June 29, 2020 Written by Reji Morales Medically Reviewed by Anne-Marie Harden In This Article The Connection Between Sleep and Weight Sleep and Obesity Sleep During Weight Loss Maintaining a Healthy Relationship With Your Body Losing weight is challenging, and keeping weight off can be just as difficult. Although the medical community is still untangling the complicated relationship between sleep and body weight, several potential links have emerged that highlight the potential weight loss benefits of getting a good night s rest and the negative health impacts of sleep deprivation. The Connection Between Sleep and Weight Over the past several decades, the amount of time that Americans spend sleeping has steadily decreased1, as has the self-reported quality of that sleep. For much of the same time period, the average body mass index (BMI) of Americans increased2, reflecting a trend toward higher body weights and elevated rates of obesity. In response to these trends, many researchers began to hypothesize about potential connections between weight and sleep. Numerous studies have suggested that restricted sleep and poor sleep quality may lead to metabolic disorders, weight gain, and an increased risk of obesity and other chronic health conditions. While there is continuing debate within the medical community about the exact nature of this relationship, the existing research points to a positive correlation between good sleep and healthy body weight. There remains much to be discovered about the intricate details of how sleep and weight are connected. Several hypotheses offer paths for additional research with the hope that increasing our understanding of the relationship between weight and sleep will lead to reduced obesity and better weight-loss methods. Can Lack of Sleep Increase Appetite? One common hypothesis about the connection between weight and sleep involves how sleep affects appetite. While we often think of appetite as simply a matter of stomach grumbling, it s actually controlled by neurotransmitters, which are chemical messengers that allow neurons (nerve cells) to communicate with one another. The neurotransmitters ghrelin and leptin are thought to be central to appetite. Ghrelin promotes hunger, and leptin contributes to feeling full. The body naturally increases and decreases the levels of these neurotransmitters throughout the day, signaling the need to consume calories3. A lack of sleep may affect the body s regulation of these neurotransmitters. In one study, men who got 4 hours of sleep had increased ghrelin and decreased leptin compared to those who got 10 hours of sleep. This dysregulation of ghrelin and leptin may lead to increased appetite and diminished feelings of fullness in people who are sleep deprived. In addition, several studies have also indicated that sleep deprivation affects food preferences. Sleep-deprived individuals tend to choose foods that are high in calories and carbohydrates4. Other hypotheses regarding the connection between sleep and increased appetite involve the body s endocannabinoid system5 and orexin6, a neurotransmitter targeted by some sleep aids. Many researchers believe that the connection between sleep and dysregulation of neurotransmitters is complicated and additional studies are needed to further understand the neurobiological relationship. Does Sleep Increase Metabolism? Metabolism7 is a chemical process in which the body converts what we eat and drink into energy needed to survive. All of our collective activities, from breathing to exercising and everything in between, is part of metabolism. While activities like exercise can temporarily increase metabolism, sleep cannot8. Metabolism actually slows about 15% during sleep, reaching its lowest level in the morning 9. In fact, many studies have shown that sleep deprivation (whether due to self-induction, insomnia, untreated sleep apnea, or other sleep disorders) commonly leads to metabolic [id number]. Poor sleep is associated with increased oxidative stress, glucose (blood sugar) intolerance (a precursor to diabetes), and insulin resistance. Extra time spent awake may increase the opportunities to eat11, and sleeping less may disrupt circadian rhythms, leading to weight gain12. How is Sleep Related to Physical Activity? Losing sleep can result in having less energy for exercise and physical activity. Feeling tired can also make sports and exercising less safe, especially activities like weightlifting and or those requiring balance. While researchers are still working to understand this [id number], it s well known that exercise is essential to maintaining weight loss and overall health. Getting regular exercise can improve sleep quality, especially if that exercise involves natural light. While even taking a short walk during the day may help improve sleep, more activity can have a more dramatic impact. Engaging in at least 150 minutes of moderate-intensity or 75 minutes of high-intensity exercise per week can improve daytime concentration and decrease daytime [id number]. Sleep and Obesity In children and adolescents, the link between not getting enough sleep and an increased risk of obesity is well-established, although the reason for this link is still being debated. Insufficient sleep in children can lead to metabolic irregularities as discussed earlier, skipping breakfast in the mornings, and increased intake of sweet, salty, fatty, and starchy foods15. In adults, the research is less clear. While a large analysis of past studies suggests that people getting less than 6 hours of sleep at night are more likely to be diagnosed as obese16, it s challenging for these studies to determine cause and effect. Obesity itself can increase the risk of developing conditions that interfere with sleep, like sleep apnea and depression. It s not clear if getting less sleep is the cause of obesity in these studies, if obesity is causing the participants to get less sleep, or perhaps a mix of both. Even though more studies are needed to understand this connection, experts encourage improving sleep quality when treating obesity in adults. Sleep During Weight Loss Getting adequate, quality sleep is an important part of a healthy weight loss plan. Most importantly, research has shown that losing sleep while dieting can reduce the amount of weight lost17 and encourage [id number]. Tips for Quality Sleep During Weight Loss There are many ways to improve sleep. Here are a few research-based tips for sleeping better when you re trying to lose weight: Keep a regular sleep schedule: Big swings in your sleep schedule or trying to catch up on sleep after a week of late nights can cause changes in metabolism and reduce insulin [id number], making it easier for blood sugar to be elevated. Sleep in a dark room: Exposure to artificial light while sleeping, such as a TV or bedside lamp, is associated with an increased risk of weight gain and . Don t eat right before bed: Eating late may reduce the success of weight loss [id number] Reduce Stress: Chronic stress may lead to poor sleep and weight gain in several ways, including eating to cope with negative [id number] Be an Early Bird: People with late bedtimes may consume more calories and be at a higher risk for weight gain23. Early birds may be more likely to maintain weight loss when compared to night owls24. Maintaining a Healthy Relationship With Your Body Deciding if you should attempt to change your body weight is a personal decision best made with the guidance of your doctor. Don t take all the health and weight loss information you read [id number] at face value. Weight loss isn t appropriate for everyone and doesn t always mean better health. Remember that health is a lifelong journey that includes not only healthy habits but also having a healthy relationship with your body. If you re considering weight loss, the National Institutes of Health offers a helpful resource for choosing a safe weight loss [id number] Source National [place] of Diabetes and Digestive and Kidney DiseasesNIDDK research creates knowledge about and treatments for diseases that are among the most chronic, costly, and consequential for patients, their families, and the Nation. niddk.nih.gov . https://www.sleepfoundation.org/ph ysical-health/yofgff-jwuf-att-slee p 30 High Protein Snack Ideas 1. Jerky 2. [place] mix without or minimal dried fruit 3. [place] roll-ups 4. [place] yogurt 5. Veggies and yogurt dip 6. Tuna 7. Hard-boiled eggs 8. Peanut butter celery sticks 9. No-bake energy bites 10. Cheese slices/ Cheese Stick 11. Handful of almonds 12. Roasted chickpeas 13. Hummus and veggies 14. Cottage Cheese 15. Celery/fruit with peanut butter 16. Beef sticks (Grass-fed, natural ingredients) 17. Protein bars 18. Canned [place] 19. Felix pudding 20. Homemade granola - rolled oats, nuts, and a little sweetener - 1/4 cup serving 21. Pumpkin seeds 22. Nut butter 23. Protein shakes 24. Edamame 25. Avocado and chicken salad 26. Fruit and nut bars - natural ingredients without added sugar. 27. Lentil salad 28. Overnight oatmeal 29. Egg muffins 30. Leftover protein or lunch meat 15 gram carb fruit options Berries have the lowest sugar content 1/2 cup diced honeydew melon - 8 carbs One half medium grapefruit - 10.5 carbs 1 medium orange -15.5 carbs 1 medium peach -14.5 carbs 1/2 cup fresh cranberries - 6.5 carbs 1 medium plum -7.5 carbs 1/2 cup raspberries -7.5 carbs 1 medium Isabel -9 carbs 1/2 cup fresh pineapple -11 carbs 1 medium nectarine - 15 carbs 1/2 cup blueberries - 11 carbs - may actually help you lose weight 1 medium kiwi without skin - 11 carbs 1/2 cup fresh cherries -11 carbs 1 medium tangerine -12 carbs 1/2 cup sliced clover -14 carbs 1/2 medium banana 1/2 c grapes 1/2 medium apple - 12.5 carbs 5 gram carb vegetable options 1 cup raw OR cup cooked: Asparagus Cabbage Spinach Peppers Green beans Carrots Tomato [place] Durán sprouts Cauliflower Lettuce Snap peas Broccoli Eggplant Zucchini Turnips Spaghetti squash 15 gram carb vegetable options cup cooked green peas cup cooked corn or hominy corn on the cob, large (5 oz) cup cooked sweet potato, plain cup cooked potato, plain 1 small potato or sweet potato 1 cup winter squash (pumpkin, acorn, butternut) 1 cup marinara or pasta sauce - check label cup tomato juice cup tomato puree Beans, Seeds, Nuts cup cooked beans (kidney, de la torre, red, green, etc.) cup cooked lentils cup baked beans 4 tablespoons nut butter - Eat primarily whole foods. Limit carbs, especially processed carbs. - Do not drink your calories - 30 grams of protein for breakfast decreases your hunger during the day by up to 40 % Premier Protein or generic 30 gm protein 1 gm sugar - Walk for 15 minutes immediately a meal. documented in this encounter [facility] 01-30-2023 History of Present illness Narrative Images from the original note were not included. INITIAL WEIGHT MANAGEMENT CONSULT: Patient Summary: Stephanie Jarvis is a 52 year old female with obesity who presents for an initial evaluation of overweight/obesity and is interested in combination of behavioral and pharmacological Motivation for seeking treatment for the disease of overweight/obesity : does not want to regain weight that she has lost. 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 She states her weight gain is related to the following factors, including weight retention , reduced physical activity, and consumption of unhealthy foods. WEIGHT GRAPH: Medications: None Weight Promoting Medications: None Diet: Fluids: water-3 years ago she used to consume 24 cans of Mountain Dew a day. Now she only consumes water. Or sugar-free lemonade. Quality of diet: 24hr recall suggests healthy diet. Characterization of diet:Structured. 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 self-directed and counting calories . Limited to 1200cal when first started now at 1600 but does not track anything else. Exercise: Regular exercise: yes Strength/resistance exercise:yes Barriers to regular exercise? yes Work-related activity:Sedentary. Gym Membership: yes Activity Tracker: yes ?Sleep: Duration: 3 hours. NIDHI NO ; CPAP NO - was just tested in november ??Stress: Stressno:, Cause:none Obesity Related Comorbidities: Prior Weight Loss Surgery:skin removal PAST MEDICAL HISTORY Diagnosis Date Abnormal mammogram right breast Obesity, unspecified PAST SURGICAL HISTORY Procedure Laterality Date BREAST BIOPSY 06/30/2014 [facility] DELIVERY ONLY , low cervical x 2 HYSTEROSCOPY,W/ENDOMETRIAL ABLATION 02/04/2018 Priscilla ablation LAPS SURG CHOLECYSTECTOMY W/CHOLANGIOGRAPHY 04/12/2008 Normal IOC LAPS TOTAL HYSTERECT 250 GM/< W/RMVL TUBE/OVARY Bilateral 05/20/2018 TL, bilateral salpingectomy REDUCTION OF LARGE BREAST 1997 TUBAL LIGATION FAMILY HISTORY Problem Relation Age of Onset Hypertension Mother Cancer Father lung cancer - smoker Diabetes Maternal Grandmother Heart Maternal Grandmother Hypertension Maternal Grandmother Stroke Maternal Uncle Cancer Daughter leukemia Social History Tobacco Use Smoking status: Never Smokeless tobacco: Never Substance Use Topics Alcohol use: Yes Comment: occassionally Drug use: No Obesity ROS/ FHx GEN: Fatigue:no CV: h/o palpitations/cardiac arrhythmia, Chest pain: no HTN: no PULM: Asthma:no GI: GERD:no ; Gallstones:REMOVED ; Fatty liver disease:no Pancreatitis: no MSK: Joint Pain:no : Nephrolithiasis: no Symptoms of PCOS: no NEURO: Migraines/MERCER: no; H/o seizures: no Glaucoma:no; Cataracts no Symptoms of or History of pseudotumor cerebri:no Family or personal History of MEN2 or Medullary thyroid cancer: no PE BP 126/78 Pulse 64 Ht 5' 5 (1.651 m) Wt 210 lb 8 oz (95.5 kg) LMP 09/28/2017 (Exact Date) SpO2 99% BMI 35.03 kg/m Weight Circumference: 43.25 110cm GENERAL: Female in NAD. Mixed central and gluteofemoral adiposity. SKIN: acanthosis nigricans no, Skin tags: no Hirsutism: no HEENT: PERRL, No supraclavicular adiposity. No dorsal adiposity. RESPIRATORY: CBTA CARDIAC: RRR ABDOMEN: Small pannus; EXTREMITIES: peripheral edema: no Results: reviewed with the patient No visits with results within 3 Month(s) from this visit. Latest known visit with results is: Office Visit on 05/28/2018 Component Date Value Ref Range Status GLUCOSE UA (POCT) 05/28/2018 Negative Negative mg/dL Final BILIRUBIN UA (POCT) 05/28/2018 Negative Negative Final KETONE UA (POCT) 05/28/2018 Negative Negative mg/dL Final SPECIFIC GRAVITY UA (POCT) 05/28/2018 1.020 1.005 - 1.030 Final HEMOGLOBIN/BLOOD UA (POCT) 05/28/2018 Trace-intact (A) Negative Final PH UA (POCT) 05/28/2018 6.0 4.5 - 8.0 Final PROTEIN UA (POCT) 05/28/2018 Negative Negative mg/dL Final UROBILINOGEN UA (POCT) 05/28/2018 0.2 Normal E.U./dL Final NITRITE UA (POCT) 05/28/2018 Negative Negative Final LEUKOCYTES UA (POCT) 05/28/2018 Trace (A) Negative Final COLOR UA (POCT) 05/28/2018 Yellow Final CLARITY UA (POCT) 05/28/2018 Clear Final Impression: Stephanie Jarvis is a 52 year old Female with Class II obesity (Body mass index is 35.03 kg/m .) who has adult onset obesity with gradual weight gain then weight loss- now slowly regaining The causes of her obesity are multifactorial, biological, psychological and social and environmental. Specific factors include inadequate sleep duration, poor sleep quality, and post weight retention. She has no significant weight-related medical comorbidities which increase her cardiovascular mortality risk. There are no additional metabolic obesity complications . Other medical conditions as above. Regarding her lifestyle, as above, she has no significant behavioral contributors; her physical activity is regular. Overall, it is clear that her quality of life is mildly compromised by her weight. It is likely a combination of weight loss therapies will be needed. She appears motivated today. Plan: -- Based on the severity and resistance of the obesity/overweight with co-morbidities, I believe a combination of behavioral and pharmacological intervention is the best and most appropriate intermediate manager therapeutic option. -- We discussed several strategies to track food intake and increase mindfulness around eating. She was counseled on the following: Eating primarily whole foods. Limit carbs, especially processed carbs. Do not drink your calories 30 grams of protein for breakfast decreases your hunger during the day by up to 40 % Premier Protein or generic 30 gm protein 1 gm sugar Walk for 15 minutes immediately a meal. -- Encouraged the patient to improve her physical activity. Although cardiovascular exercise is most beneficial for weight loss initially, we discussed healthy muscle from a combination of resistance training and cardiovascular exercise is the best mcfp plan. An overall goal of 150-200 minutes per week of exercise has been effective in weight loss and maintenance. -- follow-up visit for management of above interventions -- Reviewed that monitoring weight daily and food intake can have a positive impact on overall weight loss and maintenance of weight loss. Activity tracking can be used to stay on target for exercise however should not be used to reward oneself - Last Wt 01/30/23 : 210 lb 8 oz (95.5 kg) 5% weight loss = 200 lbs, 10% weight loss = 190 lbs She understands that there can be limitations of pharmacotherapy due to contraindications, side effects and cost. Patient was told to contact her insurance company to see what AOMs and supervised behavioral medical appointments are currently covered. Patient understands she will have more success when following a healthy lifestyle. We reviewed continued use of online tracking of daily weights, food journal and if desired physical activity. We reviewed that during management she is to report any concerning side effects of any pharmacotherapy she is placed on. She understands that she will need routine follow up in the office. Prior to any virtual visits in the future she will need to check her Blood pressure, weight, and pulse. After reviewing her diet there are some areas of improvement that we discussed. I would like for her to concentrate on increasing her protein and decreasing her carbohydrates. We discussed using protein shakes as a way to get more protein. She will limit carbohydrates to under 100 g/day at this time. Discussed sleeping would be a factor for weight loss. We discussed a sleep routine which may help. We discussed adding melatonin. We discussed sleep meditation. Getting off her screen time. We discussed topiramate may assist in her sleep. I would like her to take the 25 mg between 12 and 2:00 in the afternoon to see if that helps. The phentermine will be added in the morning 15 mg I discussed that this is a stimulant and I do not want to add to her inability to sleep but I also feel like she could have a sluggish resting metabolic rate. CBC, CMP, insulin, hemoglobin A1c, vitamin D levels ordered to [facility] I spent a total of 55 minutes on the date of the service which included preparing to see the patient, [id number] patient care, completing clinical documentation, obtaining and/or reviewing separately obtained history, performing a medically appropriate examination, counseling and educating the patient/family/caregiver, and ordering medications, tests, or procedures. Zelda Bo MD documented in this encounter [facility] 01-19-2023 Miscellaneous Notes Appointment scheduled. Rosita Wick RN Pt would like to be seen for new weight mgmt appointment- 40min. Please assist in scheduling. 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 Requesting medications to be called in. Rx sent. Ashlie Harris APRN.CNM documented in this encounter [facility] 09-02-2021 Note Discharge Summary Stephanie Jarvis : 1970 ADMIT DATE: 09/01/2021 DISCHARGE DATE: 09/02/2021 PRIMARY CARE PHYSICIAN: No primary care provider on file. VISIT STATUS: Observation CODE STATUS: Full Code DISCHARGE DIAGNOSES: Active Problems: Cellulitis Resolved Problems: * No resolved hospital problems. * obesity Cellulitis related to recent procedure HOSPITAL COURSE: [place] Jarvis was admitted with cellulitis of her abdomen and nonspecific viral symptoms with negative COVID test at [facility]. She was started on IV abx after receiving fluids and her cellulitis dramatically improved as well as her symptoms. She was discharged home on doxycycline. SIGNIFICANT DIAGNOSTIC STUDIES: CT AP negative for abscess. Nonspecific cellulitis. CONSULTANTS: JOSEPH RECOMMENDED NEXT STEPS: Follow up with Dr Rivas in 3 days DISCHARGE MEDICATIONS: Medication List START taking these medications doxycycline hyclate 100 MG tablet Commonly known as: VIBRA-TABS Take 1 tablet by mouth 2 times daily for 10 days oxyCODONE 5 MG immediate release tablet Commonly known as: ROXICODONE Take 1 tablet by mouth every 6 hours as needed (severe pain) for up to 5 days. Where to Get Your Medications You can get these medications from any pharmacy Bring a paper prescription for each of these medications ? doxycycline hyclate 100 MG tablet Information about where to get these medications is not yet available Ask your nurse or doctor about these medications ? oxyCODONE 5 MG immediate release tablet DIET: ADULT DIET; Regular ACTIVITY: up with assist __ COMPLEXITY OF FOLLOW UP: [x] Moderate Complexity: follow up within 7-14 calendar days ([id number]) [] Severe Complexity: follow up within 7 calendar days (69789) FOLLOW UP TESTING, PENDING RESULTS OR REFERRALS AT TRANSITIONAL CARE VISIT: [] Yes [x] No PENDING STUDIES: none DISPOSITION: Home Follow up with No follow-up provider specified. INSTRUCTIONS TO MA/SW: Please call patient on day after discharge (must document patient contacted within 2 business days of discharge). FOLLOW UP QUESTIONS FOR MA/SW: 1. Did you get medications filled and taking them as instructed from discharge? 2. Are you following your discharge instructions from your hospital stay? 3. Please confirm patient is scheduled for a follow up appointment within the above time frame. DISCHARGE TIME: < 30 minutes SIGNED: Judith Munroe MD 09/02/2021, 6:54 AM [facility] documented in this encounter [facility] note* Diagnosis Elevated fasting glucose- Primary Impaired fasting glucose Poor sleep pattern Other sleep disturbances Class 2 severe obesity with serious comorbidity and body mass index (BMI) of 35.0 to 35.9 in adult, unspecified obesity type (HCC) [facility] Diagnosis Class 2 severe obesity with serious comorbidity and body mass index (BMI) of 35.0 to 35.9 in adult, unspecified obesity type (HCC) Elevated fasting glucose Impaired fasting glucose [facility] Diagnosis Dysuria- Primary [facility] Diagnosis Impaired fasting glucose- Primary Poor sleep hygiene Other specific disorder of sleep of nonorganic origin Poor sleep pattern Other sleep disturbances Class 2 severe obesity with serious comorbidity and body mass index (BMI) of 35.0 to 35.9 in adult, unspecified obesity type (HCC) Lack of adequate sleep Problems related to lack of adequate sleep documented in this encounter [facility] Summary Purpose Family History No Family History Records FoundNo Family History Records Found Advance Directives No Advanced Directives Records FoundNo Advanced Directives Records Found Additional Source Comments INFORMATION SOURCE (unrecogn ized section and content) DATE CREATED AUTHOR AUTHOR'S ORGANIZ ATION 09/09/2023 [facility] Source Comments (unrecognize d section and content) In the event this informatio n is protected by the Federal Confidentiality of Alcohol and Drug Abuse Patient Records regulations: The Federal rules restrict any use of the information to criminally investigate or prosecute any alcohol or drug abuse patient.[facility] the event this information is protected by the Federal Confidentiality of Alcohol and Drug Abuse Patient Records regulations: The Federal rules restrict any use of the information to criminally investigate or prosecute any alcohol or drug abuse patient.[facility] the event this information is protected by the Federal Confidentiality of Alcohol and Drug Abuse Patient Records regulations: The Federal rules restrict any use of the information to criminally investigate or prosecute any alcohol or drug abuse patient.[facility] the event this information is protected by the Federal Confidentiality of Alcohol and Drug Abuse Patient Records regulations: The Federal rules restrict any use of the information to criminally investigate or prosecute any alcohol or drug abuse patient.[facility] the event this information is protected by the Federal Confidentiality of Alcohol and Drug Abuse Patient Records regulations: The Federal rules restrict any use of the information to criminally investigate or prosecute any alcohol or drug abuse patient.[facility] the event this information is protected by the Federal Confidentiality of Alcohol and Drug Abuse Patient Records regulations: The Federal rules restrict any use of the information to criminally investigate or prosecute any alcohol or drug abuse patient.[facility] the event this information is protected by the Federal Confidentiality of Alcohol and Drug Abuse Patient Records regulations: The Federal rules restrict any use of the information to criminally investigate or prosecute any alcohol or drug abuse patient.[facility] Care Teams (unrecognized sec tion and content) Warehouse Lead Relationship Specialty Start Date End Date Mary Sher MD [address] [place], [place] [id number] PCP - General Internal Medicine 02/08/14 Warehouse Lead Relationship Specialty Start Date End Date Mary Sher MD [address] [place], [place] [id number] PCP - General Internal Medicine 02/08/14 Warehouse Lead Relationship Specialty Start Date End Date Mary Sher MD [address] [place], [place] [id number] PCP - General Internal Medicine 02/08/14 Warehouse Lead Relationship Specialty Start Date End Date Mary Sher MD [address] [place], [place] [id number] PCP - General Internal Medicine 02/08/14 Warehouse Lead Relationship Specialty Start Date End Date Jorge Luis Nunez MD [address] [facility] [place], [place] [id number] PCP - General Family Medicine 09/08/23 Reason for Visit (unrecogniz ed section and content) Reason Comments Weight Management Specialty Diagnoses / Procedures Referred By Contac t Referred To Contact RADIO RECORDER Diagnoses weight mgmt Procedures EST WHI PATIENT Self Zelda Echevarria MD [address] [place] [address] Referral ID Status Reason Start Date Expiration Date V isits Requested Visits Authorized [id number] Closed Patient Cleared - Qualified 100% FAS 01/20/2023 01/20/2023 99 99 Reason Onset Date Comments Refill Request 2023 Reason Comments Orders FOR RECORDS PERTAINING TO PATIENTS WHO ARE OR HAVE BEEN ENROLLED IN A CHEMICAL DEPENDENCY/SUBSTANCEABUSE PROGRAM, SOME INFORMATION MAY BE OMITTED. This clinical summary was aggregated from multiple sources. Caution should be exercised in using it in the provision of clinical care. This summary normalizes information from multiple sources, and as a consequence, information in this document may materially change the coding, format and clinical context of patient data. In addition, data may be omitted in some cases. CLINICAL DECISIONS SHOULD BE BASED ON THE PRIMARY CLINICAL RECORDS. [employer] [facility]. provides no warranty or guarantee of the accuracy or completeness of information in this document.
[2023-09-28 08:25] LABS: AST(SGOT) 16 U/L (15-37); Alanine Aminotransfer ALT/SGPT 28 U/L (13-56); Albumin, Serum 3.7 g/dL (3.2-5.0); Alkaline Phosphatase 101 U/L (45-117); Anion Gap 3 (5-15); BUN 20 mg/dL (7-18); BUN/Creat Ratio 19.6 RATIO (10-20); Calcium,Total 9.4 mg/dL (8.5-10.1); Chloride 112 mmol/L (98-107); Creatinine, Serum 1.02 mg/dL (0.55-1.02); EST Glomerular Filtration Rate 60 mL/min (>60); Est Glom Filt Rate - Afr Amer 73 mL/min (>60); Globulin 3.7 g/dL (2.2-4.2); Glucose 97 mg/dL (74-106); Potassium 3.8 mmol/L (3.5-5.1); Protein, Total 7.4 g/dL (6.4-8.2); Sodium Level 140 mmol/L (136-145)
== END | disposition home or self-care (01) ==
PROVIDERS: PCP Family Medicine; Visit Provider Obstetrics & Gynecology
DX: Z13.1 Encounter for screening for diabetes mellitus (principal)
CPT/HCPCS: 36415; 80053

== ENCOUNTER → 2023-10-29 | Outpatient (CLI) | payer OTHER, SELFPAY ==
--- NOTE | 2023-10-29 08:21 | BI_ITS ---
MAMMOGRAPHY - BILATERAL SCREENING REASON FOR EXAM: Female, 53 years old. Routine annual screening examination. PERTINENT HISTORY: Non-contributory. History of prior bilateral breast reduction surgery. TECHNIQUE: Digital bilateral breast sangeeta (3D mammographic acquisition) in the CC and MLO projections. 2-D mediolateral oblique (MLO) and craniocaudad (CC) views of both breasts were obtained. CAD: Full Field Digital Mammography with Computer Added Detection was performed. COMPARISON: Comparison is made with prior study dated September 16, 2022 and July 19, 2021. FINDINGS: Breast Composition: There are scattered areas of fibroglandular density. There are no dominant masses or suspicious calcifications. A tissue clip marker is once again seen within a tiny nodule in the upper outer quadrant of the right breast. The tissue marker is also seen along the anterior superior lateral retroareolar region of the right breast. Stable bilateral axillary lymph nodes. No other significant abnormalities are identified. There has been no significant change since the prior study. BI/SCRN MAMM (CAD)W/SANGEETA BILAT IMPRESSION: Stable bilateral screening mammogram. Yearly follow-up mammogram recommended. (A) ASSESSMENT CATEGORY: BIRADS Category 2: Benign. A letter regarding these results will be sent to the patient by the facility within 30 days. Approximately 10% of breast cancers are not detected by mammography. A normal mammogram should not delay biopsy of a clinically suspicious abnormality. [id number] Electronically Signed: Derrick Sharma MD at 9:38 EST ,
--- OUTSIDE RECORDS SUMMARY | 2023-10-29 08:34 | XMS RPT_ITS | CCD ---
Author Name Unknown Address [address] [place] [address] Organization [facility] Care Team Providers Care Dynamic Balancer Name Role Phone Jeannette Wilson LPN Unavailable Unavailab Laurie Miller LPN Unavailable Jeannette Wilson LPN Unavailable Unavailab Chemo Arreguin Unavailable Kiran CUEVAS, Mary Primary Care Provider Kiran CUEVAS, Mary Primary Care Provider Kiran CUEVAS, Mary Primary Care Provider Jorge Luis Nunez MD Primary Care Provider [facility] MARY Primary Care Unavailable NEYHART MARK, ZELDA Attending Unavail able NESO MARK ZELDA Attending Unavail able [facility] MARY Primary Care Unavailable NEYHART MARK, ZLEDA Attending Unavail able [facility] MARY Primary Care Unavailable GANTA, MARY Primary Care Unavailable NEYHART MARK, ZELDA Attending Unavail able [facility] Primary Care Unavailable NEYCAYETANO MARK ZELDA Attending Unavail able Allergies Allergy Classification Reported Allergen(s) Allergy Type Date of Onset Reaction(s) Facility (12 sources) Latex; Translations: [LATEX] drug allergy 7 [facility] Work Phone: (8 sources) Sulfonamides (Antibiotic); Translations: [SULFA (SULFONAMIDE ANTIBIOTICS)] Drug Allergy 3 Other: See Comments [facility] Medications Current Medications Medication Drug Class(es) Dates [...] Take one tab every 12 hours AMOXICILLIN [id number] Chemo TERESA estradiol 0.01 mg vaginal insert [...] 90.27 kg Zelda Mark MD Work Phone: [facility] 09-08-2023 09:01-0500 Diastolic blood pressure 72 mm[Hg] Zelda Mark MD Work Phone: [facility] 09-08-2023 09:01-0500 Heart rate 86 /min Zelda Mark MD Work Phone: [facility] 09-08-2023 09:01-0500 SaO2% (BldA) [Mass fraction] 99 % Zeldalyssa Mark MD Work Phone: [facility] 09-08-2023 09:01-0500 Systolic blood pressure 114 mm[Hg] Zelda Mark MD Work Phone: [facility] 04-03-2023 09:00-0400 Body weight 93.89 kg Zelda Mark MD Work Phone: [facility] 04-03-2023 09:00-0400 Diastolic blood pressure 72 mm[Hg] Zelda Mark MD Work Phone: [facility] 04-03-2023 09:00-0400 Heart rate 94 /min Zelda Mark MD Work Phone: [facility] 04-03-2023 09:00-0400 SaO2% (BldA) [Mass fraction] 98 % Zeldalyssa Mark MD Work Phone: [facility] 04-03-2023 09:00-0400 Systolic blood pressure 128 mm[Hg] Zelda Mark MD Work Phone: [facility] 01-30-2023 10:18-0400 Body height 165.1 cm Zelda Mark MD Work Phone: [facility] 01-30-2023 10:18-0400 Body weight 95.48 kg Zelda Mark MD Work Phone: [facility] 01-30-2023 10:18-0400 Diastolic blood pressure 78 mm[Hg] Zelda Mark MD Work Phone: [facility] 01-30-2023 10:18-0400 Heart rate 64 /min Zelda Mark MD Work Phone: [facility] 01-30-2023 10:18-0400 SaO2% (BldA) [Mass fraction] 99 % Zelda Mark MD Work Phone: [facility] 01-30-2023 10:18-0400 Systolic blood pressure 126 mm[Hg] Zelda Mark MD Work Phone: [facility] 03-27-2017 16:33-0400 BMI (Body Mass Index) 41.76 kg/m2 Laurie Magallon LPN [facility] Work Phone: 03-27-2017 16:33-0400 Body Temperature 98.6 [degF] Laurie Naun PAD MACHINE FEEDER [facility] Work Phone: 03-27-2017 16:33-0400 BP Diastolic 96 mm[Hg] Laurie Naun PAD MACHINE FEEDER [facility] Work Phone: 03-27-2017 16:33-0400 BP Systolic 138 mm[Hg] Laurie Naun PAD MACHINE FEEDER [facility] Work Phone: 03-27-2017 16:33-0400 Height 165.1 cm Laurieeladia Magallon LPN [facility] Work Phone: 03-27-2017 16:33-0400 Pulse (Heart Rate) 100 /min Laurie Magallon LPN [facility] Work Phone: 03-27-2017 16:33-0400 Respiratory Rate 16 /min Laurie Magallon LPN [facility] Work Phone: 03-27-2017 16:33-0400 Weight 113.85 kg Laurie Magallon LPN [facility] Work Phone: Encounters Encounter Date Encounter Type Care Provider Facility Start: 09-08-2023 End: 09-08-2023 ambulatory ZELDA MARK Facility:[facility] Start: 09-08-2023 End: 09-08-2023 Patient encounter procedure Zelda Mark MD Work Phone: OB/Gynecology Procedures Date Procedure Procedure Detail Performing Clinician Start: 07-19-2021 Mammography Ashlie king [facility] Work Phone: Start: 03-27-2017 End: 03-27-2017 Rapid strep test Chemo TERESA Work Phone: Start: 06-09-2016 Adult depression scr eening assessment Ashlie Harris [facility] Work Phone: Start: 03-20-2016 Lipid 1996 panel - S bhavana or Plasma Zelda Mark MD Work Phone: Plan of Treatment Date Care Activity Detail Author Start: 12-04-2024 Urine microalbumin profile DTaP,Tdap,Td Vaccine (2 - Td or Tdap) [facility] Start: 05-22-2023 Covid-19 Vaccine ( season) Covid-19 Vaccine ( season) [facility] Start: 05-22-2023 Influenza vaccination [facility] Start: 09-21-2022 DEPRESSION ASSESSMENT DEPRESSION ASSESSMENT [facility] Start: 07-19-2022 Mammography MAMMOGRAM [facility] Start: 07-19-2022 Screening for malignant neoplasm of breast Mammogram Screening [facility] Start: 05-22-2022 Influenza vaccination [facility] ([facility] Ended[facility] Start: 09-27-2021 COVID-19 VACCINE (4 - Booster for Moderna series) COVID-19 VACCINE (4 - Booster for Moderna series) [facility] Start: 09-27-2021 COVID-19 VACCINE (4 - Moderna series) COVID-19 VACCINE (4 - Moderna series) [facility] Start: 2021 SHINGRIX VACCINE (1 of 2) SHINGRIX VACCINE (1 of 2) [facility] Start: 03-23-2021 COVID-19 VACCINE (3 - Booster for Moderna series) COVID-19 VACCINE (3 - Booster for Moderna series) [facility] Start: 03-20-2021 Lipid panel Lipid Screening [facility] Start: 03-20-2021 LIPID SCREEN LIPID SCREEN [facility] Start: 12-19-2020 COVID-19 VACCINE (3 - Booster for Moderna series) COVID-19 VACCINE (3 - Booster for Moderna series) [facility] Start: 05-30-2019 HPV TESTING HPV TESTING [facility] Start: 05-30-2019 PAP TESTING PAP TESTING [facility] Start: 05-30-2019 Screening for malignant neoplasm of cervix [facility] Start: 03-20-2019 DIABETES SCREEN DIABETES SCREEN [facility] Start: 03-20-2019 Diabetes Screening Diabetes Screening [facility] Start: 06-09-2017 Adult depression screening assessment DEPRESSION SCREENING [facility] Start: 03-27-2017 End: 03-27-2017 Appointment Appointment [facility] Work Phone: Start: 03-27-2017 End: 03-27-2017 Streptococcus.beta-hemoly tic [Presence] in Throat by Organism specific culture *Culture, R/O Strep A Swab [facility] Work Phone: Start: 2016 COLOGUARD (FIT-DNA) COLOGUARD (FIT-DNA) [facility] Start: 2016 Colonoscopy COLONOSCOPY [facility] Start: 2016 COLORECTAL CANCER SCREENING COLORECTAL CANCER SCREENING [facility] Start: [address] COLONOGRAPHY [facility] Start: 2016 FECAL OCCULT BLOOD FECAL OCCULT BLOOD [facility] Start: 2016 Screening for malignant neoplasm of colon [facility] Start: 2016 SIGMOIDOSCOPY SIGMOIDOSCOPY [facility] Start: 11-26-2007 Urine microalbumin profile DTAP,TDAP,TD (1 - Tdap) [facility] Start: 1989 HEPATITIS C SCREENING HEPATITIS C SCREENING [facility] Start: 1989 Hepatitis C screening Hepatitis C Screening [facility] Start: 1989 HIV SCREENING HIV SCREENING [facility] Start: 1989 HIV screening HIV Screening [facility] Start: 1971 HEPATITIS B (1 of 3 - 3-dose series) HEPATITIS B (1 of 3 - 3-dose series) [facility] Start: 1971 Hepatitis B Vaccine (1 of 3 - 3-dose series) Hepatitis B Vaccine (1 of 3 - 3-dose series) [facility] Patient Education PHARYNGITIS [facility] Work Phone[facility] Immunizations Immunization Date Immunization Notes Care Provider Margaux cole 11-25-2007 tetanus and diphther ia toxoids, adsorbed, preservative free, for adult use (2 Lf of tetanus toxoid and 2 Lf of diphtheria toxoid) Ashlie Harris APRN.CN Work Phone: [facility] Work Phone: Payers Date Payer Category Payer Private Health Insurance AEMARCIA Shi JOSEPH H-umus [id number] 2022-Present [phone] [address] [place] [address] PPO [id number] 2022 Private Health Insurance [id number] 2020 Unknown MMO MMO TPA xxxx [id number] 2020-Present [address] [place] [address] PPO [id number] 2020 Unknown MMO MMO TPA xxxx [id number] 2020-Present [address] [place] [address] PPO [id number] Social History Date Type Detail Facility Start: 05-30-2014 End: 01-30-2023 Tobacco smoking status NHIS Never smoked tobacco [facility] Work Phone: Start: 06-25-2021 End: 09-08-2023 Alcohol intake Current drinker of alcohol (finding) [facility] Start: 1970 Sex Assigned At Not on file C [facility] Start: 05-30-2014 End: 01-30-2023 Tobacco use and exposure Smokeless tobacco non-user [facility] Start: 01-30-2023 End: 04-03-2023 History of Social function [facility] Start: 01-30-2023 End: 04-03-2023 Tobacco use panel [facility] National Score (1-100), lower number is lower risk 68 [facility] Clinical Notes 09-02-2021 to 09-28-2023 Patient InstructionsZelda Echevarria MD - 09/08/2023 9:20 AM ESTTelephone Encounter - Irlanda Vora MD - 05/18/2023 8:53 AM EDTPatient InstructionsPatient Instructions Note Date & Type Note Facility 09-28-2023 Note HNO ID: [id number] Author: RIKA MICHEL, RN Service: ? Author Type: Registered Nurse Type: Progress Notes Filed: 09/28/2023 09:40 Note Text: Received lab results from [facility] Scan on 09/28/2023 8:36 AM by Provider, SARAH Flores: Miscellaneous Lab [facility] 09-08-2023 Instructions Zelda Echevarria MD - 09/08/2023 [...] of Weight and Health with Dr. Nisreen Bhatt DO * January 12, 2023 Recognizing and Resolving Emotional Eating with Dr. Adam Obesity: A Disease *January 12, 2023 Episode 80 Clinical conversations: The Role of Physical Activity in Weight Management * April 24, 2023 Episode 84 Clinical Conversations: NAFLD, The Bradford Disease of Metabolic Syndrome *April 232019 Episode [...] of hypothyroidism , section on 'Clinical manifestations'.) [place]'s syndrome -- A common feature in patients with Bina s syndrome is progressive central adiposity involving the trunk, abdomen, mesentery, and mediastinum. There is usually accumulation of fat tissue in the face and neck, with enlarged dorso- and supraclavicular fat pads. The extremities are usually spared and often exhibit muscular wasting. The excess of glucocorticoids in [place] s syndrome (iatrogenic or endogenous) induces 79-wssh-fikgofdbzongmy dehydrogenase type 1 in visceral fat, enhancing its lipogenic capacity [79]. (See Epidemiology and clinical manifestations of Bina syndrome .) Hypothalamic obesity -- Hypothalamic obesity [...] meals. Stress can disrupt sleep by causing panel saw operator sleep or more frequent awakenings, which leads [...] increasing the hormone ghrelin (that increases appetite). https://cdn1.[facility].dow[employer].edu/wp-co ntent/uploads/sites//Nita iphzQhwdfzOugqm13-96.1.pdf Disrupted Sleep Linked to Weight Gain - YouTube How To Improve Your Sleep To Impact Your Weight Loss: [email or web address]://Doyenz.com/ep42/ Weight Loss and Sleep Updated June 29, [...] other sleep disorders) commonly leads to metabolic zekiebyjossdr51. Poor sleep is associated with increased oxidative [...] researchers are still working to understand this fkumdwyuns86, it s well known that exercise is [...] can improve daytime concentration and decrease daytime kctpwwgygr45. Sleep and Obesity In children and adolescents, [...] the amount of weight lost17 and encourage gkbrdaqqpv01. Tips for Quality Sleep During Weight Loss There are many ways to improve sleep. Here are a few research-based tips for sleeping better when you re trying to lose weight: Keep a regular sleep schedule: Big swings in your sleep schedule or trying to catch up on sleep after a week of late nights can cause changes in metabolism and reduce insulin hkfexxybfzs09, making it easier for blood sugar to be elevated. Sleep in a dark room: Exposure to artificial light while sleeping, such as a TV or bedside lamp, is associated with an increased risk of weight gain and didgopn94. Don t eat right before bed: Eating late may reduce the success of weight loss ytswdkyp18 Reduce Stress: Chronic stress may lead to poor sleep and weight gain in several ways, including eating to cope with negative mtyiyhcv60 Be an Early Bird: People with late [...] health and weight loss information you read at face value. Weight loss isn t appropriate for everyone and doesn t always mean better health. Remember that health is a lifelong journey that includes not only healthy habits but also having a healthy relationship with your body. If you re considering weight loss, the National Institutes of Health offers a helpful resource for choosing a safe weight loss mmszakq12kDuivfjj Source National [place] of Diabetes and Digestive and Kidney DiseasesNIDDK research creates knowledge about and treatments for diseases that are among the most chronic, costly, and consequential for patients, their families, and the Nation. niddk.nih.gov . https://www.sleepfoundation.org/ph ysical-health/uiczrq-qddj-bgu-slee p Why People Diet, Lose Weight and [...] Catch-22. But before you beat yourself up, non destructive testing supervisor and obesity specialist Randy Antonio MD, has [...] How can you create a healthy, long-term, mhetp-veht-yo diet? Learn what s healthy -- and what s not. (A line erector or dietitian can help.) Practice portion control, even when eating healthy foods. Avoid empty calories, but treat yourself once in a while. Don t diet. Instead, focus on forming healthy habits for life. Exercise. Be an equal opportunity product safety specialist: Do both aerobic exercise (three to five [...] -- when it comes to weight loss. https://health.[facility].org /ojv-lewhud-qxyn-pean-uyjces-wgz-g xvk-ak-zih-back/ Why People Diet, Lose Weight and Gain It All Back - [facility] Sleep Hygiene Tips Set a sleep schedule [...] to more normal sleep patterns. Please call [phone] to make an appointment. documented in this encounter [facility] 09-08-2023 Note HNO ID: [id number] Author: Zelda Echevarria MD Service: ? Author [...] going to the gym every day bc sh e was so exhausted. Stressful time with medical problems. Falls alseep 11-12am up at 3am. Does feel stronger at the gym, clothes feel better Still tracking food. Breakfast- if not hungry doesn't eat. Has protein shakes if she gets hungry. Yogurt- Activia - has not loved honduran yogurt taste Chicken- breast (grilled or baked) [...] No current facility-administered medications for this visit. YOLA Denies CP, palpitations, Paresthesia. Has some dry [...] and prevent related co-morbidities. -CMP ordered to [facility] lab today -Continue metformin- Topiramate 50mg [...] which included preparing to see the patient, spkd-qx-llbq patient care, completing clinical documentation, obtaining and/or reviewing separately obtained history, performing a medically appropriate examination, counseling and educating the patient/family/caregiver, and ordering medications, tests, or procedures. Follow up in 3months or prn Zelda Bo MD [facility] 09-08-2023 History of Present illness Narrative Images [...] going to the gym every day bc sh e was so exhausted. Stressful time with medical problems. Falls alseep 11-12am up at 3am. Does feel stronger at the gym, clothes feel better Still tracking food. Breakfast- if not hungry doesn't eat. Has protein shakes if she gets hungry. Yogurt- Activia - has not loved honduran yogurt taste Chicken- breast (grilled or baked) [...] and prevent related co-morbidities. -CMP ordered to [facility] lab today -Continue metformin- Topiramate 50mg [...] which included preparing to see the patient, ypan-gu-rqcr patient care, completing clinical documentation, obtaining and/or reviewing separately obtained history, performing a medically appropriate examination, counseling and educating the patient/family/caregiver, and ordering medications, tests, or procedures. Follow up in 3months or prn Zelda Bo MD documented in this encounter [facility] 06-08-2023 Note HNO ID: [id number] Author: Zelda Echevarria MD Service: ? Author [...] months ago. Assessment/plan from last visit: Assessment/Plan: Stehpanie Jarvis is a 52 year old yo [...] proud of herself after going to the [facility] fair did not eat any food. She [...] 2 metFORMIN E (more content not included)... [facility] 05-18-2023 Miscellaneous Notes Pt with dysuria after completing course of Keflex. Unable to leave urine sample given she is at work currently. Symptoms bothersome. documented in this encounter [facility] 2023 Miscellaneous Notes Pt has upcoming appt for weight mgmt. Refill given. See pt's mychart refill request below. Pt has upcoming follow up appt on 05/14/23. Please advise. Anne-Marie Jeter LPN documented in this encounter [facility] 04-03-2023 Instructions Zelda Echevarria MD - 04/03/2023 [...] (nih.gov) Is metformin a wonder drug? - [facility] Common side effects of this medication include [...] MD, clinical director of adult diabetes at [facility], explains why timing metformin HCL with the [...] night in treating fasting high blood sugar. https://www.[employer]/article /943477-ttxr-ht-i-fzhh-ndcwxcugy-p xs-nj-ccqm-ltgfzpa-mg-lzdib/ Metformin: Patient drug information Warning Rarely, metformin [...] meals. Stress can disrupt sleep by causing panel saw operator sleep or more frequent awakenings, which leads [...] increasing the hormone ghrelin (that increases appetite). https://cdn1.sph.[employer].edu/wp-co ntent/uploads/sites//Nita rwwkVxypmgPncrl46-98.1.pdf Disrupted Sleep Linked to Weight Gain - YouTube How To Improve Your Sleep To Impact Your Weight Loss: https://Doyenz.[employer]/ep42/ Weight Loss and Sleep Updated June 29, [...] other sleep disorders) commonly leads to metabolic btrozmifctjpq81. Poor sleep is associated with increased oxidative [...] researchers are still working to understand this xlztiaxupe90, it s well known that exercise is [...] can improve daytime concentration and decrease daytime zeucotlugp20. Sleep and Obesity In children and adolescents, [...] the amount of weight lost17 and encourage tijtelgipq13. Tips for Quality Sleep During Weight Loss There are many ways to improve sleep. Here are a few research-based tips for sleeping better when you re trying to lose weight: Keep a regular sleep schedule: Big swings in your sleep schedule or trying to catch up on sleep after a week of late nights can cause changes in metabolism and reduce insulin eclyljzplxw71, making it easier for blood sugar to be elevated. Sleep in a dark room: Exposure to artificial light while sleeping, such as a TV or bedside lamp, is associated with an increased risk of weight gain and vrqeota93. Don t eat right before bed: Eating late may reduce the success of weight loss Reduce Stress: Chronic stress may lead to poor sleep and weight gain in several ways, including eating to cope with negative rirjygut77 Be an Early Bird: People with late [...] health and weight loss information you read iqgsps84 at face value. Weight loss isn t appropriate for everyone and doesn t always mean better health. Remember that health is a lifelong journey that includes not only healthy habits but also having a healthy relationship with your body. If you re considering weight loss, the National Institutes of Health offers a helpful resource for choosing a safe weight loss wvxhljx58mDoxbjej Source National [place] of Diabetes and Digestive and Kidney DiseasesNIDDK research creates knowledge about and treatments for diseases that are among the most chronic, costly, and consequential for patients, their families, and the Nation. niddk.nih.gov . https://www.sleepfoundation.org/ ysical-health/epfubg-ujoq-wso-slee p documented in this encounter [facility] 04-03-2023 Note HNO ID: [id number] Author: Zelda Mark MD Service: ? Author [...] We discussed inter (more content not included)... [facility] 04-03-2023 History of Present illness Narrative Some [...] Zelda Bo MD documented in this encounter [facility] 02-27-2023 Note HNO ID: [id number] Author: Zelda Mark MD Service: ? Author [...] intervention is the best and most appropriate intermission coordinator therapeutic option. -- We discussed several strategies [...] training and cardiovascular exercise is the best correction plan. An overall goal of 150-200 minutes [...] hemoglobin A1c, vitamin D levels ordered to [facility] I spent a total of 55 minutes on the date of the service which included preparing to see the patient, okdl-wr-tmae patient care, completing clinical documentation, obtaining and/or [...] scale has no (more content not included)... [facility] 01-30-2023 Note HNO ID: [id number] Author: Zelda Mark MD Service: ? 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 Characterization of diet:Structured. Free Lance Model of impaired eating habits:denies Eating Disorder no [...] HISTORY Procedure Laterality Date BREAST BIOPSY 06/30/2014 [facility] DELIVERY ONLY , low cervical x [...] causes of her (more content not included)... [facility] 01-30-2023 Instructions Zelda Mark MD - 01/30/2023 [...] it adds only a little benefit for intermission coordinator weight loss success. However, exercise can have [...] Sincerely, Zelda Mark MD, EDILIA & Yuliya Beebe, FIXED INCOME PORTFOLIO MANAGER PHENTERMINE -- Please take tablet or capsule [...] FOR YOUR WEIGHT LOSS PLAN Per updated [place] state rules, initially, a one month supply [...] aware of the following statements per the [facility] pharmacy board rules. 1. Timely refills are [...] at or call local emergency services at 945. What other information should I know? Keep all appointments with your doctor and the laboratory. Do not let anyone else take your medication. Phentermine is a controlled substance. It is FDA approved for up to 3 months. Prescriptions may be refilled only a limited number of times. Keep a written list of all of your prescription and nonprescription (iagg-bmb-owkbgmg) medicines, in addition to vitamins, minerals, or [...] make up for a missed one. Sources [facility] Consumer Medication Info: http://www.ncbi.nlm.nih.gov/pubmed health/ORA8248105/ AMA patient handouts: http://www.amaassn.org/ama1/pub/up load/mm/433/phrxsurgery.pdf Drugs.com: http://www.drugs.com/pro/phentermi [...] understood. Topiramate affects body mass index, fasting kyopuqb-dg-xgrhqot ratio, and serum leptin and cortisol levels. [...] at or call local emergency services at 940. What other information should I know? Keep all appointments with your doctor and the laboratory. Do not let anyone else take your medication. Topiramate use needs to be monitored closely. Prescriptions may be refilled only a limited number of times. Keep a written list of all of your prescription and nonprescription (xzxg-pmd-cyojkiq) medicines, in addition to vitamins, minerals, or [...] a missed one. Sources Pubmed Health: http://www.ncbi.nlm.nih.gov/pubmed health/TMU0205832/ Drugs.com http://www.drugs.com/pro/topiramat e.html When you take medications [...] to 0.8-1.0 g per kg body weight. [facility] Medical Link: StBuildingLayer Hydration MedPageToday : TRUE LEMON Water Enhancer True Lemon (Paytrail) If neither of these are effective you can try: Euphasia https://healthymindbodyandspirit.c om/pages/okayegn-dyci-lwcqmij Sources https://www.ncbi.nlm.nih.gov/pmc/a rticles/DFU1903248/ https://www.ncbi.nlm.nih.gov/pmc/a rticles/MLJ1021621/ Disrupted Sleep Linked to Weight Gain - YouTube How To Improve Your Sleep To Impact Your Weight Loss: https://Doyenz.Axentis Software/ep42/ Weight Loss and Sleep Updated June 29, [...] other sleep disorders) commonly leads to metabolic orqcujkxsvhwo79. Poor sleep is associated with increased oxidative [...] researchers are still working to understand this xndirkrrjt43, it s well known that exercise is [...] can improve daytime concentration and decrease daytime . Sleep and Obesity In children and adolescents, [...] the amount of weight lost17 and encourage hfobrxywor67. Tips for Quality Sleep During Weight Loss There are many ways to improve sleep. Here are a few research-based tips for sleeping better when you re trying to lose weight: Keep a regular sleep schedule: Big swings in your sleep schedule or trying to catch up on sleep after a week of late nights can cause changes in metabolism and reduce insulin ngubvegoowc35, making it easier for blood sugar to be elevated. Sleep in a dark room: Exposure to artificial light while sleeping, such as a TV or bedside lamp, is associated with an increased risk of weight gain and suzippr01. Don t eat right before bed: Eating late may reduce the success of weight loss egskkwgu75 Reduce Stress: Chronic stress may lead to poor sleep and weight gain in several ways, including eating to cope with negative gnxtkrbi41 Be an Early Bird: People with late [...] health and weight loss information you read euyvgt74 at face value. Weight loss isn t appropriate for everyone and doesn t always mean better health. Remember that health is a lifelong journey that includes not only healthy habits but also having a healthy relationship with your body. If you re considering weight loss, the National Institutes of Health offers a helpful resource for choosing a safe weight loss rothllx46jOfdgavl Source National [place] of Diabetes and Digestive and Kidney DiseasesNIDDK research creates knowledge about and treatments for diseases that are among the most chronic, costly, and consequential for patients, their families, and the Nation. niddk.nih.gov . https://www.sleepfoundation.org/[facility] hospitalical-health/egncqk-vthp-zxn-slee p 30 High Protein Snack Ideas 1. Jerky 2. Gleason mix without or minimal dried fruit 3. [place] roll-ups 4. Croatian yogurt 5. Veggies and yogurt dip 6. Tuna 7. Hard-boiled eggs 8. Peanut butter celery sticks 9. No-bake energy bites 10. Cheese slices/ Cheese Stick 11. Handful of almonds 12. Roasted chickpeas 13. Hummus and veggies 14. Cottage Cheese 15. Celery/fruit with peanut butter 16. Beef sticks (Grass-fed, natural ingredients) 17. Protein bars 18. Canned Center 19. Felix pudding 20. Homemade granola - [...] Cabbage Spinach Peppers Green beans Carrots Tomato [place] Durán sprouts Cauliflower Lettuce Snap peas Broccoli [...] immediately a meal. 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 Characterization of diet:Structured. Free Lance Model of impaired eating habits:denies Eating Disorder no [...] HISTORY Procedure Laterality Date BREAST BIOPSY 06/30/2014 [facility] DELIVERY ONLY , low cervical x [...] intervention is the best and most appropriate correction therapeutic option. -- We discussed several strategies [...] training and cardiovascular exercise is the best correction plan. An overall goal of 150-200 minutes [...] hemoglobin A1c, vitamin D levels ordered to [facility] I spent a total of 55 minutes on the date of the service which included preparing to see the patient, mzoh-sw-wzsx patient care, completing clinical documentation, obtaining and/or reviewing separately obtained history, performing a medically appropriate examination, counseling and educating the patient/family/caregiver, and ordering medications, tests, or procedures. Zelda Bo MD documented in this encounter [facility] 01-19-2023 Miscellaneous Notes Appointment scheduled. Rosita Wick RN Pt would like to be seen for new weight mgmt appointment- 40min. Please assist in scheduling. 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 Requesting medications to be called in. Rx sent. Ashlie Harris APRN.CNM documented in this encounter [facility] 09-02-2021 Note Discharge Summary Stephanie Jarvis : [...] viral symptoms with negative COVID test at [facility]. She was started on IV abx [...] Complexity: follow up within 7-14 calendar days (52019) [] Severe Complexity: follow up within 7 calendar days (37703) FOLLOW UP TESTING, PENDING RESULTS OR REFERRALS [...] SIGNED: Judith Munroe MD 09/02/2021, 6:54 AM [facility] Diagnosis Elevated fasting glucose- Primary Impaired fasting glucose Poor sleep pattern Other sleep disturbances Class 2 severe obesity with serious comorbidity and body mass index (BMI) of 35.0 to 35.9 in adult, unspecified obesity type (HCC) [facility] Diagnosis Class 2 severe obesity with serious comorbidity and body mass index (BMI) of 35.0 to 35.9 in adult, unspecified obesity type (HCC) Elevated fasting glucose Impaired fasting glucose [facility] Diagnosis Dysuria- Primary documented in this encounter [facility] note* Diagnosis Impaired fasting glucose- Primary Poor sleep hygiene Other specific disorder of sleep of nonorganic origin Poor sleep pattern Other sleep disturbances Class 2 severe obesity with serious comorbidity and body mass index (BMI) of 35.0 to 35.9 in adult, unspecified obesity type (HCC) Lack of adequate sleep Problems related to lack of adequate sleep documented in this encounter [facility] Summary Purpose Family History No Family History Records FoundNo Family History Records Found Advance Directives No Advanced Directives Records FoundNo Advanced Directives Records Found Additional Source Comments INFORMATION SOURCE (unrecogn ized section and content) DATE CREATED AUTHOR AUTHOR'S ORGANIZ ATION 09/28/2023 [facility] Source Comments (unrecognize d section and content) In the event this informatio n is protected by the Federal Confidentiality of Alcohol and Drug Abuse Patient Records regulations: The Federal rules restrict any use of the information to criminally investigate or prosecute any alcohol or drug abuse patient.[facility] the event this information is protected by the Federal Confidentiality of Alcohol and Drug Abuse Patient Records regulations: The Federal rules restrict any use of the information to criminally investigate or prosecute any alcohol or drug abuse patient.[facility] the event this information is protected by the Federal Confidentiality of Alcohol and Drug Abuse Patient Records regulations: The Federal rules restrict any use of the information to criminally investigate or prosecute any alcohol or drug abuse patient.[facility] the event this information is protected by the Federal Confidentiality of Alcohol and Drug Abuse Patient Records regulations: The Federal rules restrict any use of the information to criminally investigate or prosecute any alcohol or drug abuse patient.[facility] the event this information is protected by the Federal Confidentiality of Alcohol and Drug Abuse Patient Records regulations: The Federal rules restrict any use of the information to criminally investigate or prosecute any alcohol or drug abuse patient.[facility] the event this information is protected by the Federal Confidentiality of Alcohol and Drug Abuse Patient Records regulations: The Federal rules restrict any use of the information to criminally investigate or prosecute any alcohol or drug abuse patient.[facility] the event this information is protected by the Federal Confidentiality of Alcohol and Drug Abuse Patient Records regulations: The Federal rules restrict any use of the information to criminally investigate or prosecute any alcohol or drug abuse patient.[facility] Care Teams (unrecognized sec tion and content) Dynamic Balancer Relationship Specialty Start Date End Date Mary Sher MD [address] [place] [address] PCP - General Internal Medicine 02/08/14 Dynamic Balancer Relationship Specialty Start Date End Date Mary Sher MD [address] [place] [address] PCP - General Internal Medicine 02/08/14 Dynamic Balancer Relationship Specialty Start Date End Date Mary Sher MD [address] [place] [address] PCP - General Internal Medicine 02/08/14 Dynamic Balancer Relationship Specialty Start Date End Date Mary Sher MD [address] [place] [address] PCP - General Internal Medicine 02/08/14 Dynamic Balancer Relationship Specialty Start Date End Date Jorge Luis Nunez MD [address] [place] [address], [place] [address] PCP - General Family Medicine 09/08/23 Reason for Visit (unrecogniz ed section and content) Reason Comments Weight Management Specialty Diagnoses / Procedures Referred By Joe t Referred To Contact FINANCIAL CONTROLLER Diagnoses weight mgmt Procedures [facility] PATIENT Self Zelda Echevarria MD [address] [place] [address] Referral ID Status Reason Start Date Expiration Date V isits Requested Visits Authorized [id number] Closed Patient Cleared - Qualified 100% FAS [...] BE BASED ON THE PRIMARY CLINICAL RECORDS. [employer] provides no warranty or guarantee of the accuracy or completeness of information in this document.
== END | disposition home or self-care (01) ==
LOC: OPBI 08:20
PROVIDERS: PCP Family Medicine; Referring Provider Obstetrics & Gynecology; Visit Provider Obstetrics & Gynecology
DX: Z12.31 Encounter for screening mammogram for malignant neoplasm of breast (principal)
CPT/HCPCS: 77063; 77067

== ENCOUNTER → 2024-05-09 | Outpatient (CLI) | payer OTHER, SELFPAY ==
[2024-05-09 08:23] LABS: Vitamin D,25 Hydroxy 41.5 ng/mL
[2024-05-09 08:28] LABS: ALB/GLOB Ratio 1.1 RATIO (0.9-2.4); AST(SGOT) 20 U/L (15-37); Alanine Aminotransfer ALT/SGPT 28 U/L (13-56); Albumin, Serum 3.9 g/dL (3.2-5.0); Alkaline Phosphatase 103 U/L (45-117); Anion Gap 7 (5-15); BUN 21 mg/dL (7-18); BUN/Creat Ratio 18.6 RATIO (10-20); Calcium,Total 9.6 mg/dL (8.5-10.1); Chloride 110 mmol/L (98-107); Cholesterol 156 mg/dL (200); Creatinine, Serum 1.13 mg/dL (0.55-1.02); EST Glomerular Filtration Rate 54 mL/min (>60); Est Glom Filt Rate - Afr Amer 65 mL/min (>60); Globulin 3.7 g/dL (2.2-4.2); Glucose 111 mg/dL (74-106); High Density Lipoprotein 57 mg/dL; Potassium 3.8 mmol/L (3.5-5.1); Protein, Total 7.6 g/dL (6.4-8.2); Sodium Level 137 mmol/L (136-145); Triglycerides 77 mg/dL; Very Low Density Lipoprotein 15 mg/dL (5-40)
[2024-05-10 08:12] LABS: Insulin Level 12.9 uIU/mL (2.6-24.9)
== END | disposition home or self-care (01) ==
PROVIDERS: PCP Family Medicine; Referring Provider Obstetrics & Gynecology; Visit Provider Obstetrics & Gynecology
DX: E66.9 Obesity, unspecified (principal); Z13.1 Encounter for screening for diabetes mellitus
CPT/HCPCS: 80053; 80061; 82306; 83036; 83525

== ENCOUNTER → 2024-07-06 | Outpatient (CLI) | payer OTHER, SELFPAY ==
--- NOTE | 2024-07-06 09:08 | NEURO ---
NCS and/or EMG Patient Report Ordering Doctor: Muriel Shirley DATE OF SERVICE: 07/06/24 Brenda presents for electrodiagnostic testing of the upper limbs. She reports numbness and tingling in both hands, worse on the left side. Electrodiagnostic findings: Median motor nerve demonstrates prolonged latency bilaterally with normal amplitudes and reduced conduction on the left side. Normal left ulnar motor response bilaterally. Normal median and ulnar F?waves. Prolonged median sensory latency at the wrist bilaterally. Normal ulnar and radial sensory responses. Needle EMG testing was performed in the upper limbs. All muscles tested showed no evidence of denervation with normal motor unit action potentials. Electrodiagnostic impression: This is an abnormal study in the upper limbs 1. Electrodiagnostic findings suggestive of bilateral median mononeuropathy. This is consistent with a mild right carpal tunnel syndrome and a mild to moderate left carpal tunnel syndrome. Multi Select Codes Neurology Neurology Interp Codes: 86680-16 Musc test done w/n test comp (interp) (2) and 14292-04 Nrv cndj test 9-10 studies (interp)
== END | disposition home or self-care (01) ==
PROVIDERS: PCP Family Medicine; Referring Provider Physician Assistant; Visit Provider Physician Assistant
DX: R20.2 Paresthesia of skin (principal); M25.532 Pain in left wrist
CPT/HCPCS: 95886; 95911

== ENCOUNTER → 2024-08-01 | Outpatient (CLI) | payer OTHER, SELFPAY | END | disposition home or self-care (01) | PROVIDERS: PCP Family Medicine; Referring Provider Obstetrics & Gynecology; Visit Provider Obstetrics & Gynecology | DX: R79.89 Other specified abnormal findings of blood chemistry (principal) ==

== ENCOUNTER 2024-08-11 06:01 | Day surgery (SDC) | payer OTHER, SELFPAY ==
--- NOTE | 2024-08-01 07:32 | EKG12_ITS ---
Test Reason : PRE OP Blood Pressure : */* mmHG Vent. Rate : 77 BPM Atrial Rate : 77 BPM P-R Int : 150 ms QRS Dur : 82 ms QT Int : 358 ms P-R-T Axes : 65 33 43 degrees QTcB Int : 405 ms Normal sinus rhythm Low voltage QRS Borderline ECG When compared with ECG of 16-Dec-2008 16:57, No significant change was found Confirmed by JOÃO CUEVAS, RENO ([id number]), website/blog editor ESTRELLITA MAS ([id number]) on 08/01/2024 12:41:15 PM Referred By: Moises Chan Confirmed By: RENO MOYER MD
[2024-08-01 08:03] LABS: Hemoglobin 12.3 g/dL (12.0-15.0); Mean Corp Hgb Conc 32.4 g/dL (32-36); Mean Corpuscular Hgb 27.8 pg (27.0-32.0); Mean Platelet Vol. 9.6 fl (6.2-12.0); Platelet Count 223 K/mm3 (150-450); Red Blood Count 4.42 M/mm3 (4.2-5.4); White Blood Count 5.8 K/mm3 (4.4-11.0)
[2024-08-01 08:31] LABS: Anion Gap 5 (5-15); BUN 16 mg/dL (7-18); BUN/Creat Ratio 16.9 RATIO (10-20); Calcium,Total 9.2 mg/dL (8.5-10.1); Chloride 108 mmol/L (98-107); Creatinine, Serum 0.95 mg/dL (0.55-1.02); EST Glomerular Filtration Rate 66 mL/min (>60); Est Glom Filt Rate - Afr Amer 79 mL/min (>60); Glucose 118 mg/dL (74-106); Sodium Level 140 mmol/L (136-145)
[2024-08-04 11:26] LABS: Hemoglobin A1c 5.4 % (3.8-5.6)
[2024-08-11] VITALS (7 sets, daily range): BP systolic 118–148; BP diastolic 79–113; PULSE 77–99; RESP 18–20; TEMP 36.2–36.7; O2SAT 96–99; BMI 36.7
--- NOTE | 2024-08-11 06:46 | PCM.PRE.AN2 ---
ASA Classification* ASA Classification ASA Classification: 2 Assessment & Plan Anesthesia* Anesthesia Assessment Anesthesia Assessment: Discussed sedation and/or anesthesia options, risks, benefits, and alternatives with patient/parents/legal guardian/POA. Questions invited. The patient/parents/legal guardian/POA seems to understand and agrees to proceed with anesthesia plan. Reviewed the physical assessment, medical history, allergy history and patient home medications list prior to surgery/procedure/anesthetic and documented any changes. Performed airway and anesthesia risk assessments. Anesthesia Type Anesthesia Type: MAC Anesthesia Focused Assessment* Temperature: 98.1 F Pulse Rate: 81 Blood Pressure: 148/84 Respiratory Rate: 18 Pulse Ox: 99 Airway Assessment Mouth opens: >3 cm Mallampati Score: II Focused Labs Anesthesia Preop lab: CBC WBC 5.8 K/mm3 (4.4-11.0) 08/01/24 07:26 RBC 4.42 M/mm3 (4.2-5.4) 08/01/24 07:26 Hgb 12.3 g/dL (12.0-15.0) 08/01/24 07:26 Hct 38.0 % (37-47) 08/01/24 07:26 Plt Count 223 K/mm3 (150-450) 08/01/24 07:26 CHEMISTRY Potassium 4.0 mmol/L (3.5-5.1) 08/01/24 07:26 Sodium 140 mmol/L (136-145) 08/01/24 07:26 Magnesium 2.1 mg/dL (1.6-2.6) 12/24/18 11:45 Phosphorus 3.3 mg/dL (2.5-4.9) 05/09/24 07:18 BUN 16 mg/dL (7-18) 08/01/24 07:26 Creatinine 0.95 mg/dL (0.55-1.02) 08/01/24 07:26 Glucose 118 mg/dL (74-106) H 08/01/24 07:26 TSH 1.34 uIU/mL (0.358-3.74) 01/14/23 16:57 COAG Urine Test Negative Negative 05/20/18 05:42 Pre-Assessment Diagnosis/Proposed Procedure Planned Operative Procedure(s): LEFT CARPAL TUNNEL RELEASE Anesthesia History 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 When Was Last Pacemaker Check QUESTION #4 FULL TEXT: You/Your Family Experience fever (hyperthermia) with Anesthesia Last Oral Intake Last Oral intake: Last Oral Intake NPO since 20:00 08/11/24 06:36 Meds taken in AM with sips of No 08/11/24 06:36 water? Meds patient instructed to take am of surgery PONV PONV - mirror department supervisor: PONV - mirror department supervisor Female Yes 08/01/24 14:51 HX of Motion Sickness No 08/01/24 14:51 HX of N/V After Surgery No 08/01/24 14:51 Non-Smoker Yes 08/01/24 14:51 Duration of Surgery greater No 08/01/24 14:51 than 60 minutes Number of Risk Factors 2 08/01/24 14:51 PONV Score Moderate Risk 08/01/24 14:51 Height & Weight Height & Weight: Anesthesia: Height & Weight Height 5 ft 5 in 08/11/24 06:36 Weight: 100.2 kg 08/11/24 06:36 Body Mass Index (BMI) 36.7 08/11/24 06:36 Respiratory Assessment Respiratory Assessment - mirror department supervisor: Respiratory Tract Infection Hx - mirror department supervisor Hx Respiratory Tract Infection No 08/01/24 14:51 STOP Sleep Apnea STOP Sleep Apnea - mirror department supervisor: STOP Sleep Apnea - mirror department supervisor Hx Hypertension No 08/01/24 14:51 Hx Sleep Apnea No 08/01/24 14:51 CPAP BIPAP Do you snore loudly (louder No 08/01/24 14:51 than talking or can be heard Do you often feel tired/ No 08/01/24 14:51 fatigued/ sleepy during daytime? Has anyone observed you stop No 08/01/24 14:51 breathing during sleep? STOP Results Negative 08/01/24 14:51 QUESTION #5 FULL TEXT : Do you snore loudly (louder than talking or can be heard through closed doors)? 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 Specify any problems Hx of Preganancy in last 3 No 08/01/24 14:51 Months Nurse Filling Out Transfusion DSCHRIBER 08/01/24 14:51 & Questions: Date: 08/01/24 08/01/24 14:51 Time: 14:52 08/01/24 14:51 Patient unable to answer at this time (ie. confused, unrespo /Reproduction History /Reproductive History - mirror department supervisor: /Reproductive Hx- mirror department supervisor Hx Now No 08/01/24 14:51 Gestational Age (in weeks): EDC: Hx Hx Para Hx Section SAB No 08/01/24 14:51 PFSH Medical History Alcohol use Anemia Gastric reflux Blepharitis of left lower eyelid Hordeolum internum left lower eyelid Herpes simplex type 1 infection Conjunctivitis, both eyes Allergic dermatitis Wears glasses Non-smoker Home Medications ?Medication ?Instructions ?Recorded ?Last Taken ?Type ZANTAC MAXIUM 20 mg PO PRN PRN GERD 08/01/24 08/10/24 History phentermine 37.5 mg tablet 37.5 mg PO DAILY 08/01/24 08/09/24 History Allergy/AdvReac Type Severity Reaction Status Date / Time latex Allergy Hives Verified 08/11/24 06:35 Sulfa (Sulfonamide Allergy Unknown Verified 08/11/24 06:35 Antibiotics) Surgical History Hx of colonoscopy History of abdominoplasty History of hysterectomy History of bilateral breast reduction surgery Social History Smoking Status: Never smoker Review of Systems (Anesthesia) ROS Narrative System reviewed and no additional complaints, except as documented.
[2024-08-11] MEDS: Lidocaine 1% (20 ml mdv) 20 ML Vial (07:41)
--- NOTE | 2024-08-11 08:00 | OP.PCM_ITS ---
Problems Associated Problem List Diagnoses (1) Carpal tunnel syndrome of left wrist: Operative Report (Standard) Operative Information Surgery/Procedure Performed: carpal tunnel release Surgeon: Moises Chan Date of Procedure: 08/11/24 Procedure Start Time: 07:30 Procedure Stop Time: 07:59 Pre-Operative Diagnosis: L carpal tunnel syndrome Post-Operative Diagnosis: same Select all DRAINS/GRAFTS/IMPLANTS that apply: None Type of Anesthesia: Local and MAC Estimated Blood Loss: 1 Specimen collected: No Description of surgery: Preoperative diagnosis: Left Carpal tunnel syndrome Postoperative diagnosis: Same Title of operation: Open carpal tunnel release Surgeon: Dr. Moises Chan Anesthesia: Local w mac Indications for surgery: Patient seen and evaluated in the office. Diagnosed with carpal tunnel syndrome. They have failed adequate nonoperative treatment. Due to persistent symptoms they wish to proceed with carpal tunnel release surgery appropriate informed consent was obtained and signed. Details of procedure: Patient was taken to the OR and transferred to the OR table. Appropriate timeouts were performed. Well-padded tourniquet was applied to the operative upper extremity proximally. Area was prepped with alcohol. Local anesthetic was administered using 8 cc of 1% lidocaine plain. Operative extremity was prepped padded and draped in usual orthopedic sterile fashion for the procedure. Limb was exsanguinated. Tourniquet applied to 250 mmHg. Three centimeter incision was made over the palm. Carefully taken through skin, subcutaneous tissue, down onto the transverse carpal ligament. Transverse carpal ligament was opened at the midportion with a knife. Elevator was carefully placed underneath the transverse carpal ligament in a distal direction. I dissected down onto that with a knife. Elevator was then placed in a proximal direction, again directly underneath the transverse carpal ligament. I dissected down on that with a knife. Scissors were used at the proximal extent placed under direct visualization. This fully released the proximal extent of the transverse carpal ligament. At this point my small finger was placed proximally and distally to assure complete release of the transverse carpal ligament over the median nerve. FPL tendon was noted. No significant abnormalities were noted at the region of the carpal canal. Tourniquet was let down at 5 minutes. Bleeding controlled with the Bovie. Wound thoroughly irrigated. No undue bleeding noted. Skin edges were reapproximated with a 4-0 nylon. Sterile bandage was applied. Patient was awoken from the anesthetic. Transferred to the room bed. To recovery room in satisfactory condition. Patient will be discharged home. Ice and elevation recommended. Pain medication as needed. Follow-up in the office next week as scheduled. This note was generated with [employer] dictation software. It may contain incorrect words, spelling, and punctuation that were not noted in checking the note before signing. Surgical Findings: see op note Cracker Dough Mixer medical clerk: No Complications Complications: No Admit VTE Documentation VTE Present on Admission: No VTE Mechan Device Prophylaxis: None VTE Pharm Prophylaxis ordered?: No Reason prophylaxis not ordered: Treatment Not Indicated
--- NOTE | 2024-08-11 08:07 | PCM.POST.ANE ---
Anesthesia: Postop Eval I Current Vital Signs Temperature: 97.8 F Pulse Rate: 92 Blood Pressure: 118/79 Respiratory Rate: 18 Pulse Ox: 97 Assessment Airway patent: Yes Spontaneous unlabored respirations: Yes nausea: No Vomiting: No Anesthesia Complication: No Fluid Hydration Crystalloid volume administer (ml): 20 Total IV fluid infused: 20 Progress Note Anesthesia document: Postop Eval 1 completed: Yes
--- NOTE | 2024-08-11 12:16 | POSTOPAN2_ITS ---
Anesthesia Postop Eval I Sum Postop Eval Completion status Anesthesia document: Postop Eval 1 completed: Yes Anesthesia Postop Eval I Summary Anesthesia Postop Eval I Summary: Anesthesia Postop Eval I: Assessment Summary Airway patent Yes 08/11/24 08:07 ORTHOPAEDIC PHYSICIAN ASSISTANT.CSIR Spontaneous unlabored Yes 08/11/24 08:07 ORTHOPAEDIC PHYSICIAN ASSISTANT.CSIR respirations Mental status nausea No 08/11/24 08:07 ORTHOPAEDIC PHYSICIAN ASSISTANT.CSIR Vomiting No 08/11/24 08:07 ORTHOPAEDIC PHYSICIAN ASSISTANT.CSIR Anesthesia Postop Eval I: Fluid Summary Crystalloid volume administer 20 08/11/24 08:07 ORTHOPAEDIC PHYSICIAN ASSISTANT.CSIR (ml) Colloids volume administered ( ml) Blood Product volume administered (ml) Total IV fluid infused 20 08/11/24 08:07 ORTHOPAEDIC PHYSICIAN ASSISTANT.CSIR Anesthesia Postop Eval I: Summary Notes Anesthesia Complication No 08/11/24 08:07 ORTHOPAEDIC PHYSICIAN ASSISTANT.CSIR Anesthesia Complication Comment: Post-operative progress note Anesthesia: Postop Eval II Evaluation Mental status: Awake and Calm Pain Level: 1 nausea: No Vomiting: No Complications Anesthesia Complication: No
--- NOTE | 2024-08-11 12:16 | PCM.POSTANE2 ---
Anesthesia Postop Eval I Sum Postop Eval Completion status Anesthesia document: Postop Eval 1 completed: Yes Anesthesia Postop Eval I Summary Anesthesia Postop Eval I Summary: Anesthesia Postop Eval I: Assessment Summary Airway patent Yes 08/11/24 08:07 GLOBAL REGULATORY AFFAIRS MANAGER.CSIR Spontaneous unlabored Yes 08/11/24 08:07 GLOBAL REGULATORY AFFAIRS MANAGER.CSIR respirations Mental status nausea No 08/11/24 08:07 GLOBAL REGULATORY AFFAIRS MANAGER.CSIR Vomiting No 08/11/24 08:07 GLOBAL REGULATORY AFFAIRS MANAGER.CSIR Anesthesia Postop Eval I: Fluid Summary Crystalloid volume administer 20 08/11/24 08:07 GLOBAL REGULATORY AFFAIRS MANAGER.CSIR (ml) Colloids volume administered ( ml) Blood Product volume administered (ml) Total IV fluid infused 20 08/11/24 08:07 GLOBAL REGULATORY AFFAIRS MANAGER.CSIR Anesthesia Postop Eval I: Summary Notes Anesthesia Complication No 08/11/24 08:07 GLOBAL REGULATORY AFFAIRS MANAGER.CSIR Anesthesia Complication Comment: Post-operative progress note Anesthesia: Postop Eval II Evaluation Mental status: Awake and Calm Pain Level: 1 nausea: No Vomiting: No Complications Anesthesia Complication: No
== END 2024-08-11 08:48 | disposition home or self-care (01) ==
LOC: SDC 06:01 → AC 06:02
PROVIDERS: PCP Family Medicine; Referring Provider Orthopaedic Surgery; Visit Provider Orthopaedic Surgery
PROC: (CPT 64721; principal; 2024-08-11 07:15)
DX: G56.02 Carpal tunnel syndrome, left upper limb (principal); E66.9 Obesity, unspecified; Z86.16 Personal history of COVID-19; Z68.37 Body mass index [BMI] 37.0-37.9, adult
CPT/HCPCS: 64721; 01810; 36415; 80048; 83036; 85027; 93005; A4216; J2405

== ENCOUNTER 2024-11-04 08:00 | Outpatient (RCR) | payer OTHER, SELFPAY ==
--- NOTE | 2024-10-21 10:23 | HP.OTEVAL_ITS ---
Patient's Visit Information Visit Information Visit Information: STEPHANIE ROSENTHAL is a 54 year old F, referred to Occupational Therapy by Dr. Moises Chan MD, with a diagnosis of CTS. Date of Evaluation: 10/21/24 Occupational Therapist: Gwendolyn Sweeney, YANICK/Guillermo, CHT Subjective Subjective: This 54 year old female was seen for OT eval with dx of CTS. Pt states she had symptoms on and off for last 6-7 months. 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 pt states she get pain in her hand. Pain right hand: Current Pain Intensity: 0 Pain Intensity Range: 0, 6 and 7 left hand: Current Pain Intensity: 0 Pain Intensity Range: 0, 6 and 7 ROM Wrist: right 55/25 left 55/35 Strength Lawn Mower Operator: right 40# left 5# Lateral Pinch: right 12# left 12# Tripod Pinch: right 14# left 12# Sensation Sensation Comments: pt states tingling returned following her sx. Quick DASH-Disab of Arm,Shoulder& Hand Quick DASH Score: 48.3325 Goals Goal:Daily scar massage when approriate: Yes Goal:ROM equal to unaffected hand: Yes Goal:No pain with affected hand use: Yes Goal:Full use of affected hand in daily activities including work: Yes Goal:Decrease scar hypersensitivity: Yes Rehabilitation General Assessment: pt arrives to session with demo hypertrophic scaring / weakness and pain with use of bilateral hands with ADLS. pt would benefit from skilled OT services 2-3x week for 4 weeks to improve pts strength to return pt to her PLOF. Today therapist ed. pt on scar mtg and initiate of ROM and strengthening. pt demo understanding and agrees to POC. Rehabilitation Potential: Good Anticipated Interventions Anticipated Interventions: A/AAROM/PROM, Strengthening, Edema Control, Desensitization, Modalities, Orthoses, Joint Protection/Energy Conservation, Ergonomic Education, Education re assistive Equipment, Education re Diagnosis and Home Program Visit Plan Frequency: 2-3x /Week Duration: 6 Weeks General Plan: ROM Scar mtg strengthening TEXT: Thank you for the opportunity to evaluate your patient. For Medicare and Medicare HMO plans, please review the plan of care and approve it. It will need to be FAXED BACK to us at [phone] for Medicare purposes. Please let me know if there are questions or concerns regarding this plan of care. Physician Signature: Date:
--- NOTE | 2024-10-21 10:23 | HP.OTEVAL_ITS ---
Patient's Visit Information Visit Information Visit Information: STEPHANIE ROSENTHAL is a 54 year old F, referred to Occupational Therapy by Dr. Moises Chan MD, with a diagnosis of CTS. Date of Evaluation: 10/21/24 Occupational Therapist: Gwendolyn Sweeney, YANICK/Guillermo, CHT Subjective Subjective: This 54 year old female was seen for OT eval with dx of CTS. Pt states she had symptoms on and off for last 6-7 months. pt states her left was worse than her right hand so she decided to have her left sx done Aug 11 left CTR right CTR pt states she works at [employer]- pt works in the [employer] 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 pt states she get pain in her hand. Pain right hand: Current Pain Intensity: 0 Pain Intensity Range: 0, 6 and 7 left hand: Current Pain Intensity: 0 Pain Intensity Range: 0, 6 and 7 ROM Wrist: right 55/25 left 55/35 Strength Boat Dispatcher: right 40# left 5# Lateral Pinch: right 12# left 12# Tripod Pinch: right 14# left 12# Sensation Sensation Comments: pt states tingling returned following her sx. Quick DASH-Disab of Arm,Shoulder& Hand Quick DASH Score: 48.3325 Goals Goal:Daily scar massage when approriate: Yes Goal:ROM equal to unaffected hand: Yes Goal:No pain with affected hand use: Yes Goal:Full use of affected hand in daily activities including work: Yes Goal:Decrease scar hypersensitivity: Yes Rehabilitation General Assessment: pt arrives to session with demo hypertrophic scaring / weakness and pain with use of bilateral hands with ADLS. pt would benefit from skilled OT services 2-3x week for 4 weeks to improve pts strength to return pt to her PLOF. Today therapist ed. pt on scar mtg and initiate of ROM and strengthening. pt demo understanding and agrees to POC. Rehabilitation Potential: Good Anticipated Interventions Anticipated Interventions: A/AAROM/PROM, Strengthening, Edema Control, Desensitization, Modalities, Orthoses, Joint Protection/Energy Conservation, Ergonomic Education, Education re assistive Equipment, Education re Diagnosis and Home Program Visit Plan Frequency: 2-3x /Week Duration: 6 Weeks General Plan: ROM Scar mtg strengthening TEXT: Thank you for the opportunity to evaluate your patient. For Medicare and Medicare HMO plans, please review the plan of care and approve it. It will need to be FAXED BACK to us at [phone] for Medicare purposes. Please let me know if there are questions or concerns regarding this plan of care. Physician Signature: Date:
--- NOTE | 2025-03-20 16:29 | HP.OT.NRP ---
Patient Information Patient Information: STEPHANIE ROSENTHAL was seen in my office for initial evaluation on 10/21/24. The following Plan of Care was established for this patient: POC Established Initial Frequency: 2-3x /Week Initial Duration: 6 Weeks Plan: Continue POC: (2-3x week- 4 weeks) Anticipated Interventions Anticipated Interventions: A/AAROM/PROM, Strengthening, Edema Control, Desensitization, Modalities, Orthoses, Joint Protection/Energy Conservation, Ergonomic Education, Education re assistive Equipment, Education re Diagnosis and Home Program Last Seen Last Seen: This patient was last seen in our office 11/04/24. Pertinent comments regarding their Occupational therapy will appear below: pt was seen for 4 OT sessions. Due to time lapse in services pt is d.c At this point I will be discontinuing this patient from occupational therapy. I would be happy to see this patient again in the future if found appropriate by the physician. Thank you! Gwendolyn Sweeney, OTR/L, CHT
== END 2024-11-04 19:00 | disposition home or self-care (01) ==
LOC: OT 08:00
PROVIDERS: PCP Family Medicine; Referring Provider Orthopaedic Surgery; Visit Provider Orthopaedic Surgery
DX: G56.01 Carpal tunnel syndrome, right upper limb (principal)
CPT/HCPCS: 97035; 97110; 97166

== ENCOUNTER → 2024-12-01 | Outpatient (CLI) | payer OTHER, SELFPAY ==
--- NOTE | 2024-12-01 07:18 | BI_ITS ---
PROCEDURE: SCRN MAMM (CAD)W/SANGEETA BILAT REASON FOR EXAM: F, Age 54 y/o , SCREENING. History of prior right ultrasound-guided breast biopsy and bilateral breast reduction surgery. No family history. TECHNIQUE: Bilateral screening digital breast tomosynthesis with 2D and 3D images. Computer aided detection. COMPARISON: Prior exam(s) dating back to October 29, 2023.. FINDINGS: There are scattered areas of fibroglandular density. A tissue clip marker seen within a tiny nodule in the upper lateral aspect of the right breast. Stable fat containing bilateral axillary lymph nodes. No suspicious masses, areas of developing architectural distortion, or suspicious calcifications. Stable examination. BI/SCRN MAMM (CAD)W/SANGEETA BILAT IMPRESSION: BI-RADS 2: BENIGN. RECOMMEND ANNUAL MAMMOGRAPHIC SCREENING. Follow-up code: Routine Follow-up The patient will be notified of the results by letter. Reading Location: [id number]
== END | disposition home or self-care (01) ==
LOC: OPBI 07:16
PROVIDERS: PCP Family Medicine; Referring Provider Obstetrics & Gynecology; Visit Provider Obstetrics & Gynecology
DX: Z12.31 Encounter for screening mammogram for malignant neoplasm of breast (principal)
CPT/HCPCS: 77063; 77067